=== PATIENT | female | born 1935 | race Caucasian/White ===

== ENCOUNTER 2019-07-18 13:30 | Emergency (ER) | payer MEDICARE, OTHER, SELFPAY ==
[2019-07-18 14:05] VITALS: BP 188/92; PULSE 86; RESP 18; TEMP 36.6; O2SAT 95; BMI 21.9
--- NOTE | 2019-07-18 17:14 | PC.NURSE ---
pt received AAOx3, ambulatory, urine obtained and sent for UAC and UDS. placed in green scrubs. given blankets. daughter in room. given water to drink. awaiting MD assessment.
[2019-07-18 17:16] LABS: RBC Urine None Seen (0-5/HPF)
[2019-07-18 17:18] LABS: Appearance Urine UA CLEAR; Bilirubin Urine UA NEGATIVE (NEGATIVE); Color Urine UA YELLOW; Glucose Urine UA TRACE g/dL (Negative); Ketones Urine UA NEGATIVE (NEGATIVE); Leukocyte Esterase Urine UA 1+ (NEGATIVE); Nitrite Urine UA NEGATIVE (Negative); Occult Blood Urine UA NEGATIVE (Negative); Protein Urine UA NEGATIVE (Negative); Specific Gravity Urine UA 1.015 (1.000-1.035); Urobilinogen Urine UA 0.2 E.U./dL (0.2); pH Urine UA 7.5 (4.5-8.0)
[2019-07-18 17:22] LABS: Urine Amphetamines Negative (Negative); Urine Barbiturates Negative (Negative); Urine Benzodiazepines Negative (Negative); Urine Cocaine Negative (Negative); Urine MDMA Negative (Negative); Urine Methadone Negative (Negative); Urine Methamphetamines Negative (Negative); Urine Morphine/Opi cutoff 2000 Negative (Negative); Urine Oxycodone Negative (Negative); Urine Phencyclidine Negative (Negative); Urine Tetrahydrocannabinol Positive (Negative); Urine Tricyclic Antidepressant Negative (Negative)
[2019-07-18 17:27] LABS: Amorphous Sediment Urine 1+; Bacteria Urine Occasional (0-1); Squamous Epithelial Cell Urine 1-5 /HPF (0-5/HPF); WBC Urine 1-5/HPF (0-5/HPF)
[2019-07-18 17:28] LABS: Culture Indicated Urine Specimen Cultured
[2019-07-18 17:37] LABS: Add Manual Diff / Slide Review NO; Basophils Absolute Auto 100 /uL (0-100); Basophils Percent Auto 0.9 % (0-2); Eosinophils Absolute Auto 100 /uL (0-450); Eosinophils Percent Auto 1.4 % (2-4); Hematocrit 38.2 % (36-46); Hemoglobin 12.6 g/dL (12.0-16.0); Lymphocytes Absolute Auto 800 /uL (1100-4500); Lymphocytes Percent Auto 12.6 % (25-40); Mean Corpuscular HGB Conc 33.1 % (30-36); Mean Corpuscular Hemoglobin 30.4 PG (26-34); Mean Corpuscular Volume 91.9 fL (80-100); Monocytes Absolute Auto 600 /uL (0-900); Monocytes Percent Auto 9.2 % (3-14); Neutrophils Absolute Auto 4600 /uL (1500-7000); Neutrophils Percent Auto 75.9 % (50-75); Platelet Count 294 X10^3/uL (150-400); Red Blood Cell Count 4.15 X10^6/uL (4.0-5.2); Red Cell Distribution Width 15.3 % (11.6-14.8); White Blood Cell Count 6.1 X10^3/uL (4.5-11.0)
[2019-07-18 17:44] LABS: Acetaminophen < 10 ug/mL (10-30); Alanine Aminotransferase 20 IU/L (9-52); Albumin 4.2 g/dL (3.5-5.0); Albumin Globulin Ratio 1.3 (1.0-2.8); Alkaline Phosphatase 61 U/L (38-126); Aspartate Aminotransferase 34 IU/L (14-36); BUN Creatinine Ratio 31.7 (6-22); Bilirubin Total 0.7 mg/dL (0.2-1.3); Blood Urea Nitrogen 19 mg/dL (7-17); Calcium 8.7 mg/dL (8.4-10.2); Carbon Dioxide 29 mmol/L (22-32); Chloride 94 mmol/L (98-107); Estimated Glomerular Filt Rate > 60.0 mL/min (>60); Ethanol (ETOH) < 10 mg/dL; Globulin 3.3 g/dL (1.7-4.1); Glucose 114 mg/dL (80-110); HEMOLYSIS < 15 (0-50); Potassium 3.6 mmol/L (3.4-5.1); Salicylate < 1.0 mg/dL (<20); Sodium 134 mmol/L (137-145); Total Protein 7.5 g/dL (6.3-8.2)
[2019-07-18 18:14] LABS: Free T4, Direct Thyroxine 0.93 ng/dL (0.78-2.19)
--- NOTE | 2019-07-18 18:27 | ED.PSYCH ---
HPI - Psych <Balaji Caceres, DO - Last Filed: 07/19/19 18:06> General Chief Complaint: Psychiatric Symptoms Stated Complaint: Emotional Time Seen by Provider: 07/18/19 18:06 Source: patient and family (Daughter) Mode of arrival: ambulatory Limitations: no limitations History of Present Illness HPI Narrative: 84-year-old female was brought in by family members for concerns of emotional issues to include depression and alcohol use. Patient is somewhat unwilling to provide specifics about the events that happened today. Does appear that she has had a longstanding history of depression. Has been on multiple antidepressants in the past. She states that initially she was treated by her primary doctor who then the patient states that her primary doctor stated that she was no longer going to provide any more anti depression medications. She currently is only seen by a therapist. Unknown when the last time she saw the therapist. She also states that she has seen another provider who started her on Pristiq but she stopped taking this medication because she states that it made her very drowsy. Patient does admit to drinking alcohol. Her last alcohol drink was yesterday. She states she is not depressed about the drinking but she drinks because of her depression. She denies any other toxic ingestions recently. She states that 1 time in the past ?many years ago ?she tried to hurt herself by taking some pills. Patient states that she is hopeless. She states she has no reason to live. She has made comments to her daughter about driving off a bridge. Patient is tearful during the interview. All of her depression issue seemed to be stemmed by her who also has Alzheimer's disease. Related Data Home Medications Medication Instructions Recorded Confirmed amlodipine [Norvasc] 2.5 mg PO QDAY #0 12/06/17 biotin 1,000 mcg PO Q DAY #0 12/06/17 cetirizine 10 mg PO QDAY #0 12/06/17 docusate sodium [Colace] 100 mg PO QDAY PRN #0 12/06/17 duloxetine 30 mg PO QDAY #0 12/06/17 levothyroxine [Synthroid] 0.125 mg PO QAM #0 12/06/17 losartan [Cozaar] 12.5 mg PO Q DAY #0 12/06/17 meloxicam 15 mg PO PRN PRN #0 12/06/17 montelukast [Singulair] 10 mg PO QDAY #0 12/06/17 omeprazole 20 mg PO HS #0 12/06/17 Allergies Allergy/AdvReac Type Severity Reaction Status Date / Time No Known Drug Allergies Allergy Verified 07/18/19 14:05 Review of Systems <Balaji Caceres DO - Last Filed: 07/19/19 18:06> Constitutional Constitutional: Denies fatigue, Denies fever(s) and Denies headache(s) Eyes Eyes: Denies change in vision ENT Ears, Nose, Mouth, and Throat: Denies vertigo, Denies dizziness and Denies headache(s) Cardiovascular Cardiovascular: Denies chest pain and Denies dyspnea Respiratory Respiratory: Denies dyspnea Gastrointestinal Gastrointestinal: Denies abdominal pain, Denies change in bowel habits and Denies diarrhea Genitourinary Genitourinary: Denies dysuria Musculoskeletal Musculoskeletal: Denies myalgias, Denies arthralgias and Denies tingling Integumentary/Breasts Skin/Breast: Denies lesions and Denies rash Neurologic Neurologic: Reports behavioral changes, Denies confusion, Denies vertigo, Denies dizziness, Denies headache(s) and Denies tingling Psychiatric Psychiatric: Denies anxiety, Reports behavioral changes, Denies confusion, Reports depression, Denies auditory hallucinations, Reports hopelessness, Reports irritability, Reports mood swings and Denies hallucinations Endocrine Endocrine: Denies fatigue Hematologic/Lymphatic Hematologic/Lymphatic: Denies easy bleeding and Denies easy bruising Allergic/Immunologic Allergic/Immunologic: Denies urticaria PFSH <Balaji Caceres DO - Last Filed: 07/19/19 18:06> Medical History (Updated 07/19/19 @ 14:28 by Trinity Robertson DO) Depression (Acute) Surgical History (Updated 07/18/19 @ 18:34 by Balaji Caceres DO) No pertinent past surgical history (Acute) Social History Smoking Status: Never smoker Social History Smoking Status: Never smoker Exam <Balaji Caceres DO - Last Filed: 07/19/19 18:06> Initial Vital Signs Initial Vital Signs: Vital Signs Temperature 97.8 F 07/18/19 14:05 Pulse Rate 86 07/18/19 14:05 Respiratory Rate 18 07/18/19 14:05 Blood Pressure 188/92 H 07/18/19 14:05 Pulse Oximetry 95 07/18/19 14:05 Const General: cooperative, comfortable, well developed, well groomed and No acute distress Orientation: alert, awake and oriented x3 HENMT Head: normal to inspection and normocephalic Resp Effort & Inspection: normal respiratory effort Auscultation: clear to auscultation bilaterally Cardio Rate: regular rate Rhythm: regular rhythm GI Inspection: non-distended Palpation: soft Skin Lesions: no lesions Rashes: no rashes Neuro General: alert, awake and oriented x3 Cognition: normal cognition Speech: speech normal Motor: muscle tone normal throughout Sensory Exam: no sensory deficits noted Extrem General: normal to inspection, capillary refill normal and No edema Psych Appearance: grossly normal and well kempt Speech and Movement: agitated and speech clear Mood: anxious mood, angry and irritable mood Affect: sad, anxious affect and No hostile Attitude: cooperative Thought Process: normal Thought Content: no homicidality and suicidality Judgment: fair <Trinity Robertson DO - Last Filed: 07/19/19 18:20> Initial Vital Signs Initial Vital Signs: Vital Signs Temperature 97.8 F 07/18/19 14:05 Pulse Rate 86 07/18/19 14:05 Respiratory Rate 18 07/18/19 14:05 Blood Pressure 188/92 H 07/18/19 14:05 Pulse Oximetry 95 07/18/19 14:05 Scores <Balaji Caceres DO - Last Filed: 07/19/19 18:06> GCS Ariella coma scale eye opening: Spontaneous [place] coma scale verbal response: Orientated Ariella coma scale motor response: Obey commands Ariella coma scale total score: 15 Course <Balaji Caceres DO - Last Filed: 07/19/19 18:06> Orders Ordered: Discontinued Medications Lorazepam (Ativan) 0.5 mg PO NOW ONE Stop: 07/18/19 18:28 Last Admin: 07/18/19 18:38 Dose: 0.5 mg Documented by: HARINDER Lorazepam (Ativan) 0.5 mg PO NOW ONE Stop: 07/18/19 21:19 Last Admin: 07/18/19 21:30 Dose: 0.5 mg Documented by: ALLIE Lorazepam (Ativan) 0.5 mg PO NOW ONE Stop: 07/19/19 01:14 Last Admin: 07/19/19 01:18 Dose: 0.5 mg Documented by: KEERTHI Lorazepam (Ativan) 0.5 mg PO NOW ONE Stop: 07/19/19 12:06 Last Admin: 07/19/19 12:22 Dose: 0.5 mg Documented by: KRISTY Lorazepam (Ativan) 0.5 mg PO NOW ONE Stop: 07/19/19 15:47 Last Admin: 07/19/19 16:00 Dose: 0.5 mg Documented by: ROMAN Vital Signs Vital signs: Vital Signs - 8 hr 07/19/19 11:00 07/19/19 12:09 07/19/19 14:35 Pulse Rate 83 91 H 97 H Respiratory Rate 14 18 18 Blood Pressure [Left Arm] 148/79 H 163/82 H 120/53 L Pulse Oximetry 96 99 97 07/19/19 15:57 Pulse Rate 88 Respiratory Rate 18 Blood Pressure [Left Arm] 115/55 L Pulse Oximetry 100 <Trinity Robertson, DO - Last Filed: 07/19/19 18:20> Orders Ordered: Discontinued Medications Lorazepam (Ativan) 0.5 mg PO NOW ONE Stop: 07/18/19 18:28 Last Admin: 07/18/19 18:38 Dose: 0.5 mg Documented by: HARINDER Lorazepam (Ativan) 0.5 mg PO NOW ONE Stop: 07/18/19 21:19 Last Admin: 07/18/19 21:30 Dose: 0.5 mg Documented by: HARRYFARL Lorazepam (Ativan) 0.5 mg PO NOW ONE Stop: 07/19/19 01:14 Last Admin: 07/19/19 01:18 Dose: 0.5 mg Documented by: KEERTHI Lorazepam (Ativan) 0.5 mg PO NOW ONE Stop: 07/19/19 12:06 Last Admin: 07/19/19 12:22 Dose: 0.5 mg Documented by: KRISTY Lorazepam (Ativan) 0.5 mg PO NOW ONE Stop: 07/19/19 15:47 Last Admin: 07/19/19 16:00 Dose: 0.5 mg Documented by: ROMAN Vital Signs Vital signs: Vital Signs - 8 hr 07/19/19 11:00 07/19/19 12:09 07/19/19 14:35 Pulse Rate 83 91 H 97 H Respiratory Rate 14 18 18 Blood Pressure [Left Arm] 148/79 H 163/82 H 120/53 L Pulse Oximetry 96 99 97 07/19/19 15:57 Pulse Rate 88 Respiratory Rate 18 Blood Pressure [Left Arm] 115/55 L Pulse Oximetry 100 [facility] - Psych <Balaji Caceres DO - Last Filed: 07/19/19 18:06> Lab Data Attestation: I reviewed the patient's lab results. Result diagrams: 07/18/19 17:25 07/18/19 17:25 Labs: Lab Results 07/18/19 07/18/19 07/18/19 Range/Units 17:02 17:02 17:25 WBC 6.1 (4.5-11.0) X10^3/uL RBC 4.15 (4.0-5.2) X10^6/uL Hgb 12.6 (12.0-16.0) g/dL Hct 38.2 (36-46) % MCV 91.9 (80-100) fL MCH 30.4 (26-34) PG MCHC 33.1 (30-36) % RDW 15.3 H (11.6-14.8) % Plt Count 294 (150-400) X10^3/uL Neut % (Auto) 75.9 H (50-75) % Lymph % (Auto) 12.6 L (25-40) % Bowie % (Auto) 9.2 (3-14) % Eos % (Auto) 1.4 L (2-4) % Baso % (Auto) 0.9 (0-2) % Neut # (Auto) 4600 (2067-3278) /uL Lymph # (Auto) 800 L (4392-3199) /uL Bowie # (Auto) 600 (0-900) /uL Eos # (Auto) 100 (0-450) /uL Baso # (Auto) 100 (0-100) /uL Sodium (137-145) mmol/L Potassium (3.4-5.1) mmol/L Chloride (98-107) mmol/L Carbon Dioxide (22-32) mmol/L BUN (7-17) mg/dL Creatinine (0.52-1.04) mg/dL Estimated GFR (>60) mL/min BUN/Creatinine Ratio (6-22) Glucose (80-110) mg/dL Calcium (8.4-10.2) mg/dL Total Bilirubin (0.2-1.3) mg/dL AST (14-36) IU/L ALT (9-52) IU/L Alkaline Phosphatase (38-126) U/L Total Protein (6.3-8.2) g/dL Albumin (3.5-5.0) g/dL Globulin (1.7-4.1) g/dL Albumin/Globulin Ratio (1.0-2.8) TSH (0.47-4.68) uIU/mL Free T4 (0.78-2.19) ng/dL Urine Color Yellow Urine Appearance Clear Urine pH 7.5 (4.5-8.0) Ur Specific Brickeys 1.015 (1.000-1.035) Urine Protein Negative (Negative) Urine Glucose (UA) Trace H (Negative) g/dL Urine Ketones Negative (NEGATIVE) Urine Occult Blood Negative (Negative) Urine Nitrate Negative (Negative) Urine Bilirubin Negative (NEGATIVE) Urine Urobilinogen 0.2 (0.2) E.U./dL Ur Leukocyte Esterase 1+ H (NEGATIVE) Urine RBC None seen (0-5/HPF) Urine WBC 1-5/hpf (0-5/HPF) Ur Squamous Epith Cells 1-5 /hpf (0-5/HPF) Amorphous Sediment 1+ Urine Bacteria Occasional (0-1) (None) Ur Culture Indicated? Specimen cultured Salicylates (<20) mg/dL Urine Opiates Screen Negative (Negative) Ur Oxycodone Screen Negative (Negative) Urine Methadone Screen Negative (Negative) Acetaminophen (10-30) ug/mL Ur Barbiturates Screen Negative (Negative) U Tricyclic Antidepress Negative (Negative) Ur Phencyclidine Scrn Negative (Negative) Ur Amphetamines Screen Negative (Negative) U Methamphetamines Scrn Negative (Negative) Ur MDMA Scrn (Ecstasy) Negative (Negative) U Benzodiazepines Scrn Negative (Negative) Urine Cocaine Screen Negative (Negative) U Marijuana (THC) Screen Positive H (Negative) Ethyl Alcohol ( - 10) mg/dL 07/18/19 07/18/19 Range/Units 17:25 17:25 WBC (4.5-11.0) X10^3/uL RBC (4.0-5.2) X10^6/uL Hgb (12.0-16.0) g/dL Hct (36-46) % MCV (80-100) fL MCH (26-34) PG MCHC (30-36) % RDW (11.6-14.8) % Plt Count (150-400) X10^3/uL Neut % (Auto) (50-75) % Lymph % (Auto) (25-40) % Bowie % (Auto) (3-14) % Eos % (Auto) (2-4) % Baso % (Auto) (0-2) % Neut # (Auto) (5250-3930) /uL Lymph # (Auto) (0580-5117) /uL Bowie # (Auto) (0-900) /uL Eos # (Auto) (0-450) /uL Baso # (Auto) (0-100) /uL Sodium 134 L (137-145) mmol/L Potassium 3.6 (3.4-5.1) mmol/L Chloride 94 L (98-107) mmol/L Carbon Dioxide 29 (22-32) mmol/L BUN 19 H (7-17) mg/dL Creatinine 0.60 (0.52-1.04) mg/dL Estimated GFR > 60.0 (>60) mL/min BUN/Creatinine Ratio 31.7 H (6-22) Glucose 114 H (80-110) mg/dL Calcium 8.7 (8.4-10.2) mg/dL Total Bilirubin 0.7 (0.2-1.3) mg/dL AST 34 (14-36) IU/L ALT 20 (9-52) IU/L Alkaline Phosphatase 61 (38-126) U/L Total Protein 7.5 (6.3-8.2) g/dL Albumin 4.2 (3.5-5.0) g/dL Globulin 3.3 (1.7-4.1) g/dL Albumin/Globulin Ratio 1.3 (1.0-2.8) TSH 3.53 (0.47-4.68) uIU/mL Free T4 0.93 (0.78-2.19) ng/dL Urine Color Urine Appearance Urine pH (4.5-8.0) Ur Specific Brickeys (1.000-1.035) Urine Protein (Negative) Urine Glucose (UA) (Negative) g/dL Urine Ketones (NEGATIVE) Urine Occult Blood (Negative) Urine Nitrate (Negative) Urine Bilirubin (NEGATIVE) Urine Urobilinogen (0.2) E.U./dL Ur Leukocyte Esterase (NEGATIVE) Urine RBC (0-5/HPF) Urine WBC (0-5/HPF) Ur Squamous Epith Cells (0-5/HPF) Amorphous Sediment Urine Bacteria (None) Ur Culture Indicated? Salicylates < 1.0 (<20) mg/dL Urine Opiates Screen (Negative) Ur Oxycodone Screen (Negative) Urine Methadone Screen (Negative) Acetaminophen < 10 L (10-30) ug/mL Ur Barbiturates Screen (Negative) U Tricyclic Antidepress (Negative) Ur Phencyclidine Scrn (Negative) Ur Amphetamines Screen (Negative) U Methamphetamines Scrn (Negative) Ur MDMA Scrn (Ecstasy) (Negative) U Benzodiazepines Scrn (Negative) Urine Cocaine Screen (Negative) U Marijuana (THC) Screen (Negative) Ethyl Alcohol < 10 ( - 10) mg/dL Imaging Data CT scan - head: Radiologist's impression: [place] [address] CT Scan Report Signed Patient: Holley Saucedo EMR#: [id number] : 1935Acct:[id number] Age/Sex: 84 / FDate of Service: 07/18/19 Loc: ED Accession Number: [id number] Procedure: CT head/brain wo con Ordering Provider: Balaji Caceres D.O. PROCEDURE: CT HEAD/BRAIN WO CON INDICATIONS: new onset depression TECHNIQUE: Noncontrast 4.5 mm thick angled axial sections acquired from the foramen magnum to the vertex, with coronal and sagittal reformats. For radiation dose reduction, the following was used: automated exposure control, adjustment of mA and/or kV according to patient size. COMPARISON: None. FINDINGS: Image quality: Excellent. CSF spaces: Basal cisterns are patent. No extra-axial fluid collections. The ventricles are symmetric in size and shape. Brain: No intracranial bleeds or masses. There is cerebral volume loss for age, with resultant ventricular and sulcal prominence. There are periventricular and deep white matter chronic small vessel ischemic changes. There is intracranial internal carotid artery atherosclerosis. Skull and face: Calvarium and visualized facial bones appear intact, without suspicious lesions. Sinuses: Moderate mucosal thickening in left maxillary sinus is seen. Rest of the visualized sinuses and mastoids are clear. IMPRESSION: 1. No CT evidence of acute intracranial pathology. 2. Age-appropriate atrophy and moderate periventricular white matter microangiopathic changes. 3. Chronic left maxillary sinusitis. Dictated by: Brooks Hensley M.D. on 07/18/2019 at 19:11 Approved by: Brooks Hensley M.D. on 07/18/2019 at 19:12 ECG Data Attestation: I personally reviewed and interpreted this ECG as follows: Prior ECG tracings: not available for review Interpretation: Sinus rhythm Ventricular rate is 77 Left bundle-branch block QRS 1 to a milliseconds Normal QTC MDM Narrative Medical decision making narrative: Patient is medically cleared. No signs of toxic ingestion. EKG shows left bundle branch block otherwise unremarkable. Head CT is unremarkable. Patient has history of depression. Also has a significant alcohol use although not intoxicated today. Has a hopeless feeling. Has express thoughts of suicide to include driving her car off the bridge. Patient has been voluntary. Patient has been calm over night. She remains medically cleared. Multiple times to place patient in facility a has been unsuccessful. Social work consult has been placed. Care turned over to day provider change of shift to further disposition. <Trinity Robertson, DO - Last Filed: 07/19/19 18:20> Lab Data Attestation: I reviewed the patient's lab results. Labs: Lab Results 07/18/19 07/18/19 07/18/19 Range/Units 17:02 17:02 17:25 WBC 6.1 (4.5-11.0) X10^3/uL RBC 4.15 (4.0-5.2) X10^6/uL Hgb 12.6 (12.0-16.0) g/dL Hct 38.2 (36-46) % MCV 91.9 (80-100) fL MCH 30.4 (26-34) PG MCHC 33.1 (30-36) % RDW 15.3 H (11.6-14.8) % Plt Count 294 (150-400) X10^3/uL Neut % (Auto) 75.9 H (50-75) % Lymph % (Auto) 12.6 L (25-40) % Bowie % (Auto) 9.2 (3-14) % Eos % (Auto) 1.4 L (2-4) % Baso % (Auto) 0.9 (0-2) % Neut # (Auto) 4600 (4092-4083) /uL Lymph # (Auto) 800 L (3882-9796) /uL Bowie # (Auto) 600 (0-900) /uL Eos # (Auto) 100 (0-450) /uL Baso # (Auto) 100 (0-100) /uL Sodium (137-145) mmol/L Potassium (3.4-5.1) mmol/L Chloride (98-107) mmol/L Carbon Dioxide (22-32) mmol/L BUN (7-17) mg/dL Creatinine (0.52-1.04) mg/dL Estimated GFR (>60) mL/min BUN/Creatinine Ratio (6-22) Glucose (80-110) mg/dL Calcium (8.4-10.2) mg/dL Total Bilirubin (0.2-1.3) mg/dL AST (14-36) IU/L ALT (9-52) IU/L Alkaline Phosphatase (38-126) U/L Total Protein (6.3-8.2) g/dL Albumin (3.5-5.0) g/dL Globulin (1.7-4.1) g/dL Albumin/Globulin Ratio (1.0-2.8) TSH (0.47-4.68) uIU/mL Free T4 (0.78-2.19) ng/dL Urine Color Yellow Urine Appearance Clear Urine pH 7.5 (4.5-8.0) Ur Specific Brickeys 1.015 (1.000-1.035) Urine Protein Negative (Negative) Urine Glucose (UA) Trace H (Negative) g/dL Urine Ketones Negative (NEGATIVE) Urine Occult Blood Negative (Negative) Urine Nitrate Negative (Negative) Urine Bilirubin Negative (NEGATIVE) Urine Urobilinogen 0.2 (0.2) E.U./dL Ur Leukocyte Esterase 1+ H (NEGATIVE) Urine RBC None seen (0-5/HPF) Urine WBC 1-5/hpf (0-5/HPF) Ur Squamous Epith Cells 1-5 /hpf (0-5/HPF) Amorphous Sediment 1+ Urine Bacteria Occasional (0-1) (None) Ur Culture Indicated? Specimen cultured Salicylates (<20) mg/dL Urine Opiates Screen Negative (Negative) Ur Oxycodone Screen Negative (Negative) Urine Methadone Screen Negative (Negative) Acetaminophen (10-30) ug/mL Ur Barbiturates Screen Negative (Negative) U Tricyclic Antidepress Negative (Negative) Ur Phencyclidine Scrn Negative (Negative) Ur Amphetamines Screen Negative (Negative) U Methamphetamines Scrn Negative (Negative) Ur MDMA Scrn (Ecstasy) Negative (Negative) U Benzodiazepines Scrn Negative (Negative) Urine Cocaine Screen Negative (Negative) U Marijuana (THC) Screen Positive H (Negative) Ethyl Alcohol ( - 10) mg/dL 07/18/19 07/18/19 Range/Units 17:25 17:25 WBC (4.5-11.0) X10^3/uL RBC (4.0-5.2) X10^6/uL Hgb (12.0-16.0) g/dL Hct (36-46) % MCV (80-100) fL MCH (26-34) PG MCHC (30-36) % RDW (11.6-14.8) % Plt Count (150-400) X10^3/uL Neut % (Auto) (50-75) % Lymph % (Auto) (25-40) % Bowie % (Auto) (3-14) % Eos % (Auto) (2-4) % Baso % (Auto) (0-2) % Neut # (Auto) (9997-0850) /uL Lymph # (Auto) (8262-0124) /uL Bowie # (Auto) (0-900) /uL Eos # (Auto) (0-450) /uL Baso # (Auto) (0-100) /uL Sodium 134 L (137-145) mmol/L Potassium 3.6 (3.4-5.1) mmol/L Chloride 94 L (98-107) mmol/L Carbon Dioxide 29 (22-32) mmol/L BUN 19 H (7-17) mg/dL Creatinine 0.60 (0.52-1.04) mg/dL Estimated GFR > 60.0 (>60) mL/min BUN/Creatinine Ratio 31.7 H (6-22) Glucose 114 H (80-110) mg/dL Calcium 8.7 (8.4-10.2) mg/dL Total Bilirubin 0.7 (0.2-1.3) mg/dL AST 34 (14-36) IU/L ALT 20 (9-52) IU/L Alkaline Phosphatase 61 (38-126) U/L Total Protein 7.5 (6.3-8.2) g/dL Albumin 4.2 (3.5-5.0) g/dL Globulin 3.3 (1.7-4.1) g/dL Albumin/Globulin Ratio 1.3 (1.0-2.8) TSH 3.53 (0.47-4.68) uIU/mL Free T4 0.93 (0.78-2.19) ng/dL Urine Color Urine Appearance Urine pH (4.5-8.0) Ur Specific Brickeys (1.000-1.035) Urine Protein (Negative) Urine Glucose (UA) (Negative) g/dL Urine Ketones (NEGATIVE) Urine Occult Blood (Negative) Urine Nitrate (Negative) Urine Bilirubin (NEGATIVE) Urine Urobilinogen (0.2) E.U./dL Ur Leukocyte Esterase (NEGATIVE) Urine RBC (0-5/HPF) Urine WBC (0-5/HPF) Ur Squamous Epith Cells (0-5/HPF) Amorphous Sediment Urine Bacteria (None) Ur Culture Indicated? Salicylates < 1.0 (<20) mg/dL Urine Opiates Screen (Negative) Ur Oxycodone Screen (Negative) Urine Methadone Screen (Negative) Acetaminophen < 10 L (10-30) ug/mL Ur Barbiturates Screen (Negative) U Tricyclic Antidepress (Negative) Ur Phencyclidine Scrn (Negative) Ur Amphetamines Screen (Negative) U Methamphetamines Scrn (Negative) Ur MDMA Scrn (Ecstasy) (Negative) U Benzodiazepines Scrn (Negative) Urine Cocaine Screen (Negative) U Marijuana (THC) Screen (Negative) Ethyl Alcohol < 10 ( - 10) mg/dL MDM Narrative Medical decision making narrative: Patient signed out to myself. She has been ambulatory in the department. She had some increased anxiety and worsening symptoms earlier this morning and given dose of ativan po which was given overnight and helpful to patient. Patient found second dose helpful. Patient re-evaluated by social work. Accepted at [facility] by Dr. Wills, plan for transport 1600 to arrive at 1700. Patient continues to be voluntary and endorses suicidal thoughts and depression. Discharge Plan Departure Patient Disposition: [facility]fer [facility] Clinical Impression: Depression with suicidal ideation Discharge Date/Time: 07/19/19 16:43 Referrals: Makayla Lazcano PA-C [Primary Care Provider] -
[2019-07-18 18:28] LABS: Thyroid Stimulating Hormone 3.53 uIU/mL (0.47-4.68)
[2019-07-18 18:30] VITALS: BP 144/66; PULSE 98; RESP 16; O2SAT 96
[2019-07-18] MEDS: LORazepam 0.5 MG TABLET PO ×2 (18:38→21:30)
--- NOTE | 2019-07-18 20:36 | ONC.MSW ---
ED Social Work Crisis Assessment Pt presented to the ED along with family members after having been found in her bed, refusing to get up and expressing wanting to . She has been decompensating over recent weeks after her needed to be placed with her dtr due to progressive Alzheimer's disease, and he/pt's inability to care for him safely in the home. Pt has been increasing her use of ETOH, is found to be nearly unconsolable in the ED, expressing wanting for ED to give her a pill so that I won't wake up. Family state that pt has had increasing depression, has been trialed on several antidepressants without lasting benefit. She recently took herself off of the most recent antidepressant prescribed by her PCP, stating it made her feel too tired. She is cooperative and asking for assistance in stabilization. Family are present and very supportive of this plan. Discharge Planning/Care Management ED Crisis Response Assessment Start: 07/18/19 19:54 Freq: Status: Active Protocol: Document 07/18/19 19:55 DPL (Rec: 07/18/19 20:07 DPL [id number]) ED Crisis Response Assessment GRID OPERATOR Assessment Type Mental Health,Substance Abuse Reason for GRID OPERATOR Referral Assess for suicide risk and possible inpt mental health placement. Referred by ED provider Presenting Problem Pt presents to the ED expressing feeling suicidal, does not feel safe being alone as he feels he is high risk for completing suicide. Precipitating event was a break-up with his girlfriend 2 -days ago. He states that he can't stop thinking about wanting to , feels that he is completely overwhelmed with sadness and grief. He admits to using marijuana, no ETOH indicated on tox. screen. His brother is here and shares that pt has had multiple suicide attempts in the past, and is fearful for his brother 's life. Mental health diagnosis Per pt self report, long history of depression. Pt also acknowledges the regular use of anabolic steroids as part of his weight lifting practice . He not on any antidepressants at this time. VOA/CMS check Yes Suicidal thoughts Yes Past Suicidal thoughts Yes Current Suicidal thoughts Yes Prior Suicide attempts Yes: twice with pills, once tried to hang himself but the belt broke Number of suicide attempts 4 Access to guns and weapons No Thoughts of harm to others No Past thoughts of harm to others No Current thoughts of harming others No Current plan to harm others No Current Risk factors Recent trauma exposure, Substance abuse Risk factor comments Recent relationship break-up, anabolic steroid use, substance abuse, multiple past suicide attempts. Relevant Medical History N/A Crisis Plan Patient does not feel safe alone. He is not wanting to go to a crisis center for stabilization, is not wanting placement, however is not able to feel that he will be safe unless he is here in the ED. Additional Comment DCR has been dispatched and assessment will follow. Document 07/18/19 20:21 DPL (Rec: 07/18/19 20:32 DPL [id number]) ED Crisis Response Assessment GRID OPERATOR Assessment Type Risk of Suicide Reason for GRID OPERATOR Referral Suicidal ideation, assess for risk and potential inpt stabilization placement. Referred by ED Provider Presenting Problem Family state that pt has been increasingly more depressed, not functioning well and increasing use of ETOH after her needed to move in w/her dtr due to advanced Alzheimer's disease. She was not wanting to get out of bed, expressing wanting to , extremely tearful and unconsolable, and presented to the ED asking for a pill that will make me go to sleep and not wake up. She expresses severe hopelessness and is demonstrating failure to thrive. Mental health diagnosis History of depression. Has been trialed on multiple different antidepressants without lasting benefit. She was recently seen by her PCP and was placed on Prestique ( antidepressant), however pt stopped it herself, expressing that it made her too tired. Pt is drinking ETOH daily in order to cope, and is losing track of when she did or did not drink. VOA/CMS check No Suicidal thoughts Yes Past Suicidal thoughts No Current Suicidal thoughts Yes Prior Suicide attempts No Number of suicide attempts 0 Current plan for self harm Yes Access to guns and weapons No Thoughts of harm to others No Past thoughts of harm to others No Current thoughts of harming others No Prior attempts to harm others No Current plan to harm others No Current Risk factors Recent trauma exposure Risk factor comments Recent need to for family to place pt's spouse in the care of her dtr due to spouse's progressing Alzheimer's and pt 's inability to care for him in the home environment. Crisis Plan Attempting inpt mental health stabilization. ED Psychiatric Symptoms Assessment Start: 07/18/19 14:13 Freq: Status: Active Protocol: Document 07/18/19 18:00 RLS (Rec: 07/18/19 18:26 RLS [id number]) Psychiatric Symptoms Assessment Symptoms/Complaint Feels Depressed Duration Getting Worse History Of Same Yes Context Recent Alcohol Abuse Improves With Nothing Associated Psychiatric Symptoms Depression,Suicidal Ideation Level of Consciousness Awake Patient Behavior/Mood Anxious,Impulsive Ability to Follow Directions Fair Patient Cognition Impaired No Affect Description Anxious,Depressed Patient Appearance Disheveled Hallucination Type None Delusion Description Not Present Thought Process: Looseness of association Depressive Symptoms Crying Spells,Difficulty Concentrating,Difficulty Sleeping,Difficulty Making Decisions,Feelings of Guilt, Feelings of Worthlessness, Hopelessness,Increased Anxiety ,Insomnia,Isolating Oneself From Friends and Family,Loss of Energy,Loss of Interest in Activities,Low Self Esteem, Unhappiness Major Depressive Episode Yes Feelings of Hopelessness Yes Suicidal Ideation Vague Suicide Plan No Plan Homicidal Ideation None Nausea/Vomiting None Document 07/18/19 19:54 MM (Rec: 07/18/19 19:58 MM [id number]) Psychiatric Symptoms Assessment Symptoms/Complaint Feels Depressed Duration Getting Worse Context Recent Alcohol Abuse Worsens With Alcohol Associated Psychiatric Symptoms Depression,Suicidal Ideation Level of Consciousness Awake Patient Behavior/Mood Anxious Affect Description Anxious,Depressed Patient Appearance Disheveled Hallucination Type None Delusion Description Not Present Thought Process: Looseness of association Depressive Symptoms Crying Spells,Difficulty Concentrating,Difficulty Sleeping,Difficulty Making Decisions,Feelings of Guilt, Feelings of Worthlessness, Hopelessness,Increased Anxiety ,Increased Fatigue,Insomnia, Isolating Oneself From Friends and Family,Loss of Energy, Loss of Interest in Activities ,Low Self Esteem,Unhappiness Major Depressive Episode Yes Feelings of Hopelessness Yes Suicidal Ideation Vague Suicide Plan No Plan Homicidal Ideation None Nausea/Vomiting None
--- NOTE | 2019-07-18 21:32 | PC.NURSE ---
Pt stating starting to feel anxious again, requesting more medication. Dr love. Daughter at bedside.
[2019-07-18 22:00] VITALS: BP 144/67; PULSE 86; RESP 15; O2SAT 100
[2019-07-19] VITALS (8 sets, daily range): BP systolic 115–182; BP diastolic 53–91; PULSE 78–97; RESP 14–18; O2SAT 94–100
--- NOTE | 2019-07-19 00:02 | PC.NURSE ---
Pt currently sleeping, dtr in the room. Pt was medicated at 1826 and 2117 with Ativan 0.5mg. Pt appears to the resting comfortable at this time.
--- NOTE | 2019-07-19 00:51 | PC.NURSE ---
Pt awake and up to the bathroom with some stress incontinence, she states that she feels better but is still a little scared and the ativan helped. She would like more when and if possible.
[2019-07-19] MEDS: LORazepam 0.5 MG TABLET PO ×3 (01:18→16:00)
--- NOTE | 2019-07-19 01:26 | PC.NURSE ---
Pt and Pt dtr reporting increase in anxiety, requested ativan. 3rd dose of 0.5mg Ativan given at 0118. Pt states she will attempt pt get some sleep.
--- NOTE | 2019-07-19 08:19 | PC.NURSE ---
Patients daughter called. Requests update. Given. States cannot be here as has an Alzheimers person at her home she cares for. Will be here after comes home from work
--- NOTE | 2019-07-19 08:21 | PC.NURSE ---
Assisted patient to bathroom. Offered meal which she began to eat. She became emotional and spoke about her daughter and began crying and said she was scared. Continued to talk about her daughter and she felt better. Asked for more Corwinvan.
--- NOTE | 2019-07-19 08:23 | PC.NURSE ---
Offered coffee. She is sitting up in bed eating breakfast.
--- NOTE | 2019-07-19 11:16 | PC.NURSE ---
Obtained patient care. patient sleeping. Pillow covering patients face upon entering the room. Offered a wash cloth to cover eyes. Lights dimmed. patient resting comfortably denies any needs at this time. Calm and interactive.
--- NOTE | 2019-07-19 12:10 | PC.NURSE ---
Patient neon electrician henry spoke with DERRICKMAN HELPER and states she is feeling more anxious. Discussed with provider. Patient set up on phone with Henna at [facility] to discuss potential admission.
--- NOTE | 2019-07-19 12:10 | PC.NURSE ---
Patient was walking around in room picking up trash. I assisted her back over to the bed and showed her a lunch tray we brought in. She was willing to talk to [facility] over the phone and is doing so in her room. She is cooperating and calm
--- NOTE | 2019-07-19 12:11 | CM.SWNOTE ---
Addendum entered by Ramya Grigsby, TED 07/19/19 14:37: ADD: SW met bedside with pt and her adult Dtr Joann and discussed the process of Voluntary MH Inpt tx and the benefits for Geropsych. Pt was somewhat anxious about the unknown but pt's Dtr was encouraging for her to get the support and help needed to have a safe and better life situation. Pt states she is agreeable to Inpt MH tx and agreeable to [facility]. SW provided Dtr with the contact and location of [facility] and Dtr will go get pt's comfortable clothes for transport via BLS today. SW called Henna at [facility] and updated on pt's voluntary interest and she will confirm with their physician that they can accept. Per Henna Arora from [facility] called back with confirmation they can accept. Per GERALD Santana, BLS transport scheduled for 1600. BF Original Note: Per MD, pt remains medically stable and calm and cooperative but still could benefit from Inpt MH tx for stabilization and med management. Pt currently sleeping soundly with pillow over her head and SW did not want to immediately disturb her while continuing to look for voluntary placement for MH. SW called pt's Dtr Joann ([phone]) who confirms that she is quite concerned for the pt and would like pt to be placed for stabilization but that Dtr plans to have pt come stay with her when ready for d/c back to the community. Dtr Joann confirms that terminal computer operator plan had been for pt and spouse (with dementia) to move into their house once pt's grandson moved to [place] (which he just did this weekend). Dtr preference is to have pt stable before moving into their home as pt's current crying and instability has agitated her spouse with dementia. SW discussed possible barrier to finding a [facility] bed and Dtr acknowledges understanding and states that if no beds can be found that she would be willing to still have pt d/c to her home but requesting support with establishing pt with a Psychiatrist to prescribe and med manage for stability. Pt has struggled with finding the appropriate medication and dosing to help maintain her ADL's independently. Dtr states that pt is established with Kayla Gibson mental health therapist in [place] but is unsure if pt sees her one time weekly or every other week. Dtr plans to be bedside in ED with pt later today when her gets home from work and can stay with pt's demented spouse. [facility]ON called [facility] to follow up on faxed referral yesterday and [facility] no [facility]. SW called [facility] and they do not anticipate an opening until Saturday 07/21 but SW faxed clinicals to review in case an opening arises sooner to fax #[phone]. SW called [facility] and bag shop worker states they are currently full. SW called [facility] and they have an opening and willing to review and request clincals faxed to [phone] and SW sent packet after doing brief phone screen with intake. Per PORTER Galeas, pt currently on the phone with [facility] intake completing phone screen and they gathered some additional medical info from Gudelia regarding pt's ETOH and feel they may have an opening in their Voluntary MH unit now. Plan: ALYSON following closely to determine if [facility] can accept and [facility] Roberts to review for placement if [facility] cannot accept. TED Shaver
--- NOTE | 2019-07-19 12:29 | PC.NURSE ---
Patient assisted with a call to her daughter to discuss going to [facility].
--- NOTE | 2019-07-21 09:39 | CM.SWNOTE ---
ED Social Work Crisis Assessment Pt presented to the ED along with family members after having been found in her bed, refusing to get up and expressing wanting to . She has been decompensating over recent weeks after her needed to be placed with her dtr due to progressive Alzheimer's disease, and he/pt's inability to care for him safely in the home. Pt has been increasing her use of ETOH, is found to be nearly unconsolable in the ED, expressing wanting for ED to give her a pill so that I won't wake up. Family state that pt has had increasing depression, has been trialed on several antidepressants without lasting benefit. She recently took herself off of the most recent antidepressant prescribed by her PCP, stating it made her feel too tired. She is cooperative and asking for assistance in stabilization. Family are present and very supportive of this plan. ED Psychiatric Symptoms Assessment Start: 07/18/19 14:13 Freq: Status: Active Protocol: Document 07/18/19 18:00 RLS (Rec: 07/18/19 18:26 RLS [id number]) Psychiatric Symptoms Assessment Symptoms/Complaint Feels Depressed Duration Getting Worse History Of Same Yes Context Recent Alcohol Abuse Improves With Nothing Associated Psychiatric Symptoms Depression,Suicidal Ideation Level of Consciousness Awake Patient Behavior/Mood Anxious,Impulsive Ability to Follow Directions Fair Patient Cognition Impaired No Affect Description Anxious,Depressed Patient Appearance Disheveled Hallucination Type None Delusion Description Not Present Thought Process: Looseness of association Depressive Symptoms Crying Spells,Difficulty Concentrating,Difficulty Sleeping,Difficulty Making Decisions,Feelings of Guilt, Feelings of Worthlessness, Hopelessness,Increased Anxiety ,Insomnia,Isolating Oneself From Friends and Family,Loss of Energy,Loss of Interest in Activities,Low Self Esteem, Unhappiness Major Depressive Episode Yes Feelings of Hopelessness Yes Suicidal Ideation Vague Suicide Plan No Plan Homicidal Ideation None Nausea/Vomiting None Document 07/18/19 19:54 MM (Rec: 07/18/19 19:58 MM [id number]) Psychiatric Symptoms Assessment Symptoms/Complaint Feels Depressed Duration Getting Worse Context Recent Alcohol Abuse Worsens With Alcohol Associated Psychiatric Symptoms Depression,Suicidal Ideation Level of Consciousness Awake Patient Behavior/Mood Anxious Affect Description Anxious,Depressed Patient Appearance Disheveled Hallucination Type None Delusion Description Not Present Thought Process: Looseness of association Depressive Symptoms Crying Spells,Difficulty Concentrating,Difficulty Sleeping,Difficulty Making Decisions,Feelings of Guilt, Feelings of Worthlessness, Hopelessness,Increased Anxiety ,Increased Fatigue,Insomnia, Isolating Oneself From Friends and Family,Loss of Energy, Loss of Interest in Activities ,Low Self Esteem,Unhappiness Major Depressive Episode Yes Feelings of Hopelessness Yes Suicidal Ideation Vague Suicide Plan No Plan Homicidal Ideation None Nausea/Vomiting None Initialized on 07/18/19 20:36 - END OF NOTE
== END 2019-07-19 16:43 ==
PROVIDERS: Emergency Medicine; Emergency Provider Emergency Medicine; Family Provider Family Medicine; PCP Physician Assistant Medical
DX: R45.851 Suicidal ideations (principal); F32.9 Major depressive disorder, single episode, unspecified
CPT/HCPCS: 36415; 70450; 80053; 80305; 80320; 80329; 81001; 84439; 84443; 85025; 87086; 93005; 99285; G0480

== ENCOUNTER → 2019-09-17 09:30 | Outpatient (CLI) | payer MEDICARE, OTHER, SELFPAY ==
--- NOTE | 2019-09-17 09:34 | DI.RAD.S_ITS ---
PROCEDURE: XR CERVICAL SPINE 4V OR 5V INDICATIONS: Cervical spondylosis TECHNIQUE: 5 views of the cervical spine acquired. COMPARISON: None. FINDINGS: Bones: No fractures or dislocations to the T1 level. Extensive cervical spondylosis. Remote interbody fusion versus congenital fusion at C5-C6. Minimal degenerative anterolisthesis of C4 on C5. Mild degenerative anterolisthesis of C3 on C4. Extensive facet arthropathy. Severe bilateral foraminal narrowing at C4-C5 and multilevel right bony foraminal narrowing. Soft tissues: No prevertebral soft tissue swelling. IMPRESSION: Extensive cervical spondylytic change with multilevel foraminal narrowing and marked multilevel facet arthropathy. Dictated by: Lai Muñiz M.D. on 09/17/2019 at 10:13 Approved by: Lai Muñiz M.D. on 09/17/2019 at 10:16
== END ==
PROVIDERS: Family Provider Family Medicine; PCP Nurse Practitioner; Visit Provider Physical Medicine & Rehabilitation
DX: M47.812 Spondylosis without myelopathy or radiculopathy, cervical region (principal); M48.02 Spinal stenosis, cervical region; F43.21 Adjustment disorder with depressed mood
CPT/HCPCS: 72050; 99214

== ENCOUNTER → 2019-10-01 09:11 | Outpatient (CLI) | payer MEDICARE, OTHER, SELFPAY ==
--- NOTE | 2019-10-01 | DI.ECHO.S_ITS ---
[facility]---------+ [facility] +---------+ : : [address] : : : : [id number] : : : : Phone: [phone]+ Echocardiogram Report + + :Name: ESPINOZA MOISE Study Date: 10/01/2019 Height: 63 in : :[facility] Weight: 115 lb : : Gender: Female BSA: 1.5 m2 : :: 1935 Age: 84 yrs BP: 122/74 mmHg: :Reason For Study: LBBB : : Performed By: [facility] Staff : :Referring: [email or web address] : + + Interpretation Summary 1) Normal left ventricular thickness and size with mildly reduced systolic function (EF 45-50%). 2) Normal right ventricular size and function. 3) Septal motion is consistent with conduction abnormality. 4) There is mild to moderate aortic regurgitation. 5) No prior Echo available for comparison. Procedure: A two-dimensional transthoracic echocardiogram with color flow and Doppler was performed. The study quality was technically adequate. There is no prior echocardiogram noted for this patient. The patient had a bundle branch block rhythm during the exam. Left Ventricle: The left ventricle is normal in size. There is normal left ventricular wall thickness. Left ventricular systolic function is mildly reduced. The ejection fraction is estimated to be 45-50%. Septal motion is consistent with conduction abnormality. Right Ventricle: The right ventricle is normal in size and function. Atria: The left atrium is mildly dilated. Right atrial size is normal. The interatrial septum is intact with no evidence for an atrial septal defect. Mitral Valve: The mitral valve leaflets appear mildly thickened, but open well. Nodular calcification on the anterior leaflet tip. There is trace mitral regurgitation. Aortic Valve: There is mild aortic valve sclerosis. The aortic valve is trileaflet. The aortic valve opens well. There is no aortic valve stenosis. There is mild to moderate aortic regurgitation. Tricuspid Valve: The tricuspid valve is normal in structure and function. There is mild tricuspid regurgitation. The right ventricular systolic pressure is estimated to be at least 29 mmHg based on an estimated right atrial pressure of 3 mm Hg. Pulmonic Valve: The pulmonic valve is normal in structure and function. There is trace pulmonic regurgitation. Great Vessels: The aortic root is normal size. The dimensions of the ascending aorta are normal. The pulmonary artery is normal size. The IVC is of normal diameter and collapses greater than 50% with a sniff. This suggests a low right atrial pressure of 3 mm Hg. Pericardium/ Pleura There is no pericardial effusion. There is no pleural effusion. MMode/2D Measurements & Calculations LVIDd: 2.9 cm LVOT diam: 2.1 cm LVIDs: 2.4 cm Ao root diam: 3.4 cm FS: 18.2 % EPSS: 0.89 cm IVSd: 1.0 cm LVPWd: 0.99 cm LV ruiz. diameter/BSA (cm/m^2): 1.9 LV sys. diameter/BSA (cm/m^2): 1.5 LA A2 area: 19.4 cm2 RA long axis: 4.9 cm LA A4 area: 14.8 cm2 RA area: 14.3 cm2 LA length (vol): 4.7 cm RA vol: 35.9 ml LA vol: 52.4 ml RA : 23.5 ml/m2 LA vol index: 34.3 ml/m2 IVC diam: 1.8 cm TAPSE: 2.1 cm Doppler Measurements & Calculations Ao V2 max: 105.5 cm/sec LVOT Max Owen: 83.8 cm/sec Ao V2 mean: 71.1 cm/sec LV V1 max P.8 mmHg Ao max P.5 mmHg LV V1 VTI: 18.2 cm Ao mean P.4 mmHg PHILIP(I,D): 3.1 cm2 Ao V2 VTI: 20.1 cm PHILIP(V,D): 2.8 cm2 sev ratio: 0.91 PHILIP indexed to BSA (cm^2/m^2): 2.1 AI P1/2t: 402.9 msec AI dec slope: 318.7 cm/sec2 MV E max owen: 70.6 cm/sec TR max owen: 227.8 cm/sec MV A max owen: 117.1 cm/sec TR max P.0 mmHg MV E/A: 0.60 PA V2 max: 59.2 cm/sec Med Peak E' Owen: 5.0 cm/sec PA V2 mean: 40.5 cm/sec E/E' med: 14.3 PA mean P.77 mmHg Lat Peak E' Owen: 5.3 cm/sec PA Accel Time: 0.09 sec E/E' lat: 13.2 E/e' average: 13.8 MV dec time: 0.15 sec SV(LVOT): 63.3 ml Reading Physician:01:58 PM
== END ==
PROVIDERS: PCP Nurse Practitioner; Visit Provider Physician Assistant
DX: I08.2 Rheumatic disorders of both aortic and tricuspid valves (principal); I44.7 Left bundle-branch block, unspecified
CPT/HCPCS: 93306

== ENCOUNTER → 2019-10-13 14:46 | Outpatient (CLI) | payer MEDICARE, OTHER, SELFPAY ==
--- NOTE | 2019-10-14 17:41 | DI.NM.S_ITS ---
DATE OF SERVICE: 10/13/2019 PROCEDURE: Pharmacological perfusion study. INDICATIONS: Left bundle-branch block and hypertension. RADIOPHARMACEUTICAL: 25.9 mCi technetium-99m Myoview IV was injected at stress and 25.2 mCi technetium-99m Myoview IV was injected at rest. CARDIAC STRESS: Patient underwent IV Lexiscan perfusion study under the supervision of an attending staff. Patient remained hemodynamically stable. No significant symptoms were reported. Baseline EKG revealed sinus rhythm with underlying left bundle branch block. During stress, there were no convincing new inducible ischemic changes. There were no significant arrhythmias. RAW DATA: There was significance of diaphragmatic activity. Liver is at higher position than heart. Gut shadow was seen as well. GATED STUDY: Resting stress LV ejection fraction 67 and stress LV ejection fraction 71% without any obvious wall motion abnormalities. No transient ischemic dilatation. TID ratio is 1.03, which is within normal limits. Resting LV end-diastolic volume is 69 mL. Lung/heart ratio is 0.35, which is within normal limits. MYOCARDIAL PERFUSION SCAN: Resting supine images revealed, small-to moderate sized mildly decreased perfusion of distal anterior wall extending into the anterior apex and distal anteroseptum. During stress supine and stress prone images, there was small, mildly decreased perfusion of distal anterior wall and distal anterior septum sparing anterior apex. No reversible ischemia. CONCLUSION: Patient has predominantly fixed small-sized mildly decreased perfusion of distal anterior septum and distal anterior wall which appears better in stress supine and stress prone images than resting supine images. No convincing reversible ischemia. There is increased of diaphragmatic activity including gut activity. Patient has underlying left bundle branch block. In stress supine and stress prone images, apex is spared. Most likely we are dealing with this defect due to underlying left bundle-branch block. No convincing ischemia or infarction pattern. Hence, I will call this study likely a normal myocardial perfusion study. Overall this is a low-risk myocardial perfusion study. Clinical correlation is recommended. Holley Saucedo - ADRIEL/janine/ doc#: [id number]/job#: [id number] dd: 10/14/2019 16:33:00 dt: 10/14/2019 17:33:00 DICTATING MD/COPIES TO: Rajni Grimes MD COPIES MNE: CLARA
== END ==
PROVIDERS: Family Provider Nurse Practitioner; PCP Nurse Practitioner; Visit Provider Physician Assistant
DX: I44.7 Left bundle-branch block, unspecified (principal); R06.09 Other forms of dyspnea; I10 Essential (primary) hypertension
CPT/HCPCS: 78452; 93016; 93017; 93018; A9502; J2785

== ENCOUNTER → 2019-12-01 14:24 | Outpatient (CLI) | payer MEDICARE, OTHER, SELFPAY ==
--- NOTE | 2019-12-01 14:31 | DI.RAD.S_ITS ---
PROCEDURE: XR LUMBAR SPINE MIN 4V INDICATIONS: chronic progressive LBP TECHNIQUE: 5 views of the lumbar spine were acquired. COMPARISON: None. FINDINGS: Bones: 5 nonrib-bearing vertebrae are present. There is mildly levoscoliotic bony alignment. No vertebral body compression fractures. No suspicious bony lesions. Note is made of a moderately severe degree of degenerative disc disease with disc height reduction and near and thyww-qr-wzs plate articulation at the disc spaces along the middle and lower thirds of the LS spine. Additionally, facet osteoarthritis is moderately severe over these levels, and there likely is spinal and foraminal stenosis from L2 inferiorly. Mild grade 1 anterolisthesis of L4 on L5 is present due to both facet and disc disease producing ligamentous laxity. Soft tissues: Overlying bowel gas pattern is normal. No suspicious soft tissue calcifications. Oblique images: No pars defects. IMPRESSION: No compression fracture found. 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 As noted, anterolisthesis is present to a mild degree at L4-L5 due to ligamentous laxity. Dictated by: Karl Wheeler M.D. on 12/01/2019 at 15:48 Approved by: Karl Wheeler M.D. on 12/01/2019 at 15:49
[2019-12-01 17:20] LABS: Free T4, Direct Thyroxine 1.27 ng/dL (0.78-2.19)
[2019-12-01 17:34] LABS: Thyroid Stimulating Hormone 1.95 uIU/mL (0.47-4.68)
== END ==
PROVIDERS: PCP Nurse Practitioner; Visit Provider Physical Medicine & Rehabilitation
DX: M54.5 Low back pain (principal); M51.16 Intervertebral disc disorders with radiculopathy, lumbar region; M47.26 Other spondylosis with radiculopathy, lumbar region; M47.27 Other spondylosis with radiculopathy, lumbosacral region; M47.22 Other spondylosis with radiculopathy, cervical region; M43.16 Spondylolisthesis, lumbar region; E03.9 Hypothyroidism, unspecified; G89.29 Other chronic pain
CPT/HCPCS: 36415; 72110; 84439; 84443; 99214

== ENCOUNTER → 2019-12-10 11:05 | Outpatient (CLI) | payer MEDICARE, OTHER, SELFPAY ==
--- NOTE | 2019-12-10 11:09 | DI.MRI.S_ITS ---
PROCEDURE: MR CERVICAL SPINE WO CON INDICATIONS: Cervical radiculopathy TECHNIQUE: Noncontrast sagittal T1 spin echo and T2 fast spin echo, sagittal STIR, foraminal oblique sagittal T2 fast spin echo, and axial gradient echo or T2 fast spin echo through the cervical spine. COMPARISON: [facility], CR, XR CERVICAL SPINE 4V OR 5V, 09/17/2019, 9:41. FINDINGS: Image quality: Diagnostic, with note made of motion artifact. Images are repeated, with some improvement. Alignment and Curvature: There is mild retrolisthesis at C5-C6. Bone Marrow: Marrow demonstrates normal overall signal. Spinal Cord: Visualized spinal cord has normal size and signal. No cerebellar tonsillar herniation. Paraspinous Soft Tissues: No paravertebral masses. Prevertebral soft tissues are normal in thickness. C2-C3: The disc height is well-preserved. Loss of disc signal is seen at this level. Mild to moderate disc osteophyte complex is seen. Moderate facet joint hypertrophy is seen. Moderate bilateral neural foraminal narrowing is seen. Moderate central canal narrowing is seen, with minimal mass effect upon the ventral spinal cord. C3-C4: Moderate loss of disc height is seen. Loss of disc signal is seen. Moderate generalized disc osteophyte complex is seen. Moderate facet joint hypertrophy is seen. There is moderate to severe bilateral neural foraminal narrowing seen. Moderate to severe central canal narrowing is seen, with associated mass effect upon the ventral spinal cord. C4-C5: Moderate to severe loss of disc height and disc signal are seen. Bridging endplate osteophytes are seen. Uncovertebral joint hypertrophy is seen at this level. Moderate to prominent disc osteophyte complex is seen. Moderate to prominent facet joint hypertrophy is seen. There is moderate to severe bilateral neural foraminal narrowing seen, right worse than left. Moderate to severe central canal narrowing is seen, with associated mass effect upon the ventral spinal cord. C5-C6: Vertebral body fusion is seen at this level. Moderate to prominent disc osteophyte complex is seen. There is moderate to severe bilateral neural foraminal narrowing seen, right worse than left. Moderate to severe central canal narrowing is seen, with associated ventricular flattening. C6-C7: At least moderate loss of disc height and disc signal can be seen. Bridging endplate osteophytes are seen. Reactive marrow endplate changes are seen which are hypointense on T1-weighted imaging and hyperintense on T2 weighted imaging, which is most consistent with edema (Modic type I changes). Moderate to prominent disc osteophyte complex is seen. There is moderate to severe right-sided and at least moderate left-sided neural foraminal narrowing seen. Moderate to severe central canal narrowing is seen, with associated ventral cord flattening. C7-T1: Mild loss of disc height is seen. Loss of disc signal is seen. Uhjc-mr-kwspccxm disc osteophyte complex is seen. Vwuk-jv-bsgiowhs facet hypertrophy is seen. There is mild left-sided and no right-sided neural foraminal narrowing seen. No significant central canal narrowing is seen. IMPRESSION: Multiple levels of prominent cervical spine degenerative change are seen. Dictated by: Kennedy Dowling M.D. on 12/10/2019 at 12:30 Approved by: Kennedy Dowling M.D. on 12/10/2019 at 12:35
== END ==
PROVIDERS: PCP Nurse Practitioner; Referring Provider Physical Medicine & Rehabilitation; Visit Provider Physical Medicine & Rehabilitation
DX: M47.22 Other spondylosis with radiculopathy, cervical region (principal)
CPT/HCPCS: 72141

== ENCOUNTER 2019-12-15 10:37 | Outpatient (CLI) | payer MEDICARE, OTHER, SELFPAY ==
[2019-12-15] VITALS (9 sets, daily range): BP systolic 141–188; BP diastolic 72–95; PULSE 88–92; RESP 16–22; TEMP 35.8; O2SAT 95–99
--- NOTE | 2019-12-15 10:40 | DI.RAD.S_ITS ---
PROCEDURE: PAIN C/T INTERLAMINAR INJECT INDICATIONS: SPONDYLOSIS FINDINGS: Fluoroscopic spot filming was performed to verify placement of spinal needles at the C6-C7 level(s), as labeled on the films. Appropriate location(s) of the needle tip(s) was confirmed by injection of iodinated contrast. Dictated by: Oscar Spivey M.D. on 12/15/2019 at 14:43 Approved by: Oscar Spivey M.D. on 12/15/2019 at 14:43
--- NOTE | 2019-12-15 10:46 | PM.PROC.1 ---
Procedures Date/Time Date of procedure: 12/15/19 Time of procedure: 12:10 General Procedure description: PREOP DIAGNOSIS 1. CERVICAL STENOSIS, 2. CERVICAL HNP WITH UPPER EXTREMITY RADICULAR FEATURES, POST OP DIAGNOSIS 1. CERVICAL STENOSIS, 2. CERVICAL HNP WITH UPPER EXTREMITY RADICULAR FEATURES, PROCEDURES 1. FLUORSCOPICALLY GUIDED CONTRAST CONTROLLED INTERLAMINAR EPIDURAL STEROID INJECTION - C6/7 TL ENRIQUETA PHYSICIAN: Refugio Ware, DO INDICATIONS Sandra is referred by CARLYLE Walters for treatment of Cervical HNP with Upper Extremity Paresthesias. FINDINGS Cervical Stenosis due to disc deterioration and nerve root irritation and nerve root irritation DESCRIPTION OF PROCEDURE Fluoroscopically guided, contrast-controlled C6/7 translaminar epidural steroid injection with conscious sedation. Following review of allergy and review of potential side effects and complications, including, but not necessarily limited to, infection, allergic reaction, local tissue breakdown, temporary as well as permanent nerve injury, stroke, paralysis, and possible , the patient indicated that patient understood and agreed to proceed. An informed consent document was signed by the patient, witnessed by a nurse, and placed in the patient's chart. Additionally, other treatment options including modalities, medications, and physical therapy were reviewed with the patient. After review of previous anaesthesic history and IV conscious sedation the patient was deemed safe to proceed with todays procedure with IV conscious sedation as ASA class II designation. Safety time-out was performed to confirm patient ID, procedure to be performed and site of procedure. IV sedation was accomplished with a combination of 2mg of Versed administered by the RN after DO order, titrated to patient comfort during the course of the procedure while the patient remained responsive to all verbal commands. In the prone position, following sterile prep and drape of the cervical region, the C6/7 translaminar space was identified fluoroscopically. The skin was anesthetized via a 25-gauge 1.5-inch needle with 1% lidocaine solution. At this point, a 25-gauge, 2.5-inch short bevel spinal needle was atraumatically introduced and advanced under fluoroscopic guidance into epidural space at the C6/7 translaminar space. Depth was confirmed on lateral view. Radiological data, including multiple fluoroscopic views of the cervical spine, reveal a spinal needle at the C6/7 translaminar space. Lateral views then show placement of the needle in the epidural space. Subsequent views show contrast material flowing superiorly and inferiorly in the epidural space. DSA fluoroscopy with live contrast injection, once again, confirmed no vascular or intrathecal uptake. At this point, using loss of resistance technique with saline and air, the epidural space was entered. Following negative aspiration, injection of approximately 1.5 cc of Isovue-200 with live fluoroscopy in the AP view confirmed epidural flow in the epidural space without vascular or intrathecal uptake observed. Subsequently, a test dose of 1 cc of 1% lidocaine solution was injected and patient was observed for two minutes without signs or symptoms of complications, including abdominal pain, shortness of breath, bilateral upper or lower extremity weakness, nausea and vomiting, prior to steroid injection. At this point, 2cc or 20mg of dexamethasone was then injected without incident. The patient tolerated the procedure well without signs or symptoms of complications prior to being transferred to the recovery area for further monitoring, The patient was then transferred to the recovery area where they were observed for an appropriate period of time after the injection. The patient reported a VAS score of 6 prior to the procedure and a post-procedure VAS of 0. Total Fluoroscopy Time: 28 seconds Total Conscious Time: 24min POST OP INSTRUCTIONS The patient was provided a Pain Log to continue to record their response to the target-specific procedure prior to follow-up visit with the referring provider. Additionally, specific post-injection care instructions and a contact number to our office were provided if concerns arise regarding possible complications associated with the procedure are suspected. Refugio Ware DO Complications: none
[2019-12-15] MEDS: MIDAZOLAM 5 MG/5 ML VIAL IV (11:50)
[2019-12-15] MEDS: BUPIVACAINE 0.25% (PF) VIAL 2 ML INJ (11:58)
[2019-12-15] MEDS: IOPAMIDOL 15 ML VIAL 3 ML INJ (11:58)
[2019-12-15] MEDS: DEXAMETHASONE 10 MG/ML VIAL 20 MG INJ (11:59)
--- NOTE | 2019-12-15 12:05 | PC.NURSE ---
ASSISTING PT OFF TABLE AND TRANSPORTING TO POST PROC AREA IN STABLE CONDITION. PASSING RN CARE OF PT OFF TO VAMSI Pathak RN.
--- NOTE | 2019-12-15 12:30 | PC.NURSE ---
neuro fast exam negative
--- NOTE | 2019-12-15 13:54 | PC.NURSE ---
1213 return from procedure, transfers self to chair, tolerated well, assuming care from Roslyn lay snacks provided and tolerated.
== END 2019-12-15 12:50 | disposition home or self-care (01) ==
LOC: RAD 10:39
PROVIDERS: PCP Nurse Practitioner; Referring Provider Physical Medicine & Rehabilitation; Visit Provider Physical Medicine & Rehabilitation
DX: M48.02 Spinal stenosis, cervical region (principal); M50.123 Cervical disc disorder at C6-C7 level with radiculopathy; R20.2 Paresthesia of skin
CPT/HCPCS: 62321; 99152; J1100; J2250; J3010

== ENCOUNTER → 2020-04-29 13:52 | Outpatient (CLI) | payer MEDICARE, OTHER, SELFPAY ==
[2020-04-29 15:15] LABS: BUN Creatinine Ratio 31.7 (6-22); Blood Urea Nitrogen 32 mg/dL (7-17); Calcium 9.5 mg/dL (8.4-10.2); Carbon Dioxide 32 mmol/L (22-32); Chloride 96 mmol/L (98-107); Estimated Glomerular Filt Rate 52.3 mL/min (>60); Glucose 99 mg/dL (80-110); HEMOLYSIS < 15 (0-50); Potassium 4.6 mmol/L (3.4-5.1); Sodium 137 mmol/L (137-145)
== END ==
PROVIDERS: PCP Nurse Practitioner; Referring Provider Physician Assistant Medical; Visit Provider Physician Assistant Medical
DX: I51.9 Heart disease, unspecified (principal)
CPT/HCPCS: 36415; 80048

== ENCOUNTER → 2020-09-03 11:54 | Outpatient (CLI) | payer MEDICARE, OTHER, SELFPAY ==
--- NOTE | 2020-09-03 12:27 | DI.RAD.S_ITS ---
PROCEDURE: XR ABDOMEN 1V INDICATIONS: abdominal pain TECHNIQUE: One view of the abdomen acquired. COMPARISON: None. FINDINGS: Surgical changes and devices: None. Bowel: Bowel gas pattern is normal. Soft tissues: No suspicious abdominal calcifications. Visualized solid organ contours appear normal in size. Bones: No suspicious bony lesions. IMPRESSION: No source for abdominal pain identified. If pain persists, consider CT. Dictated by: Sean BECKER Interpreted: Kelly Rose MD on 09/03/2020 at 14:39 Approved by: Kelly Rose M.D. on 09/07/2020 at 11:18
[2020-09-03 13:45] LABS: Add Manual Diff / Slide Review NO; Basophils Absolute Auto 100 /uL (0-100); Basophils Percent Auto 1.3 % (0-2); Eosinophils Absolute Auto 200 /uL (0-450); Eosinophils Percent Auto 4.5 % (2-4); Hemoglobin 13.1 g/dL (12.0-16.0); Lymphocytes Absolute Auto 1000 /uL (1100-4500); Lymphocytes Percent Auto 21.4 % (25-40); Mean Corpuscular HGB Conc 32.7 % (30-36); Mean Corpuscular Hemoglobin 30.7 PG (26-34); Monocytes Absolute Auto 600 /uL (0-900); Neutrophils Absolute Auto 2600 /uL (1500-7000); Neutrophils Percent Auto 58.8 % (50-75); Platelet Count 259 X10^3/uL (150-400); Red Blood Cell Count 4.25 X10^6/uL (4.0-5.2); Red Cell Distribution Width 14.8 % (11.6-14.8); White Blood Cell Count 4.5 X10^3/uL (4.5-11.0)
[2020-09-03 14:12] LABS: Alanine Aminotransferase 13 IU/L (<35); Albumin 4.2 g/dL (3.5-5.0); Albumin Globulin Ratio 1.2 (1.0-2.8); Alkaline Phosphatase 51 U/L (38-126); Aspartate Aminotransferase 32 IU/L (14-36); BUN Creatinine Ratio 31.6 (6-22); Bilirubin Total 0.5 mg/dL (0.2-1.3); Blood Urea Nitrogen 30 mg/dL (7-17); Carbon Dioxide 35 mmol/L (22-32); Chloride 99 mmol/L (98-107); Globulin 3.5 g/dL (1.7-4.1); Glucose 96 mg/dL (80-110); HEMOLYSIS < 15 (0-50); Lipase 407 U/L (23-300); Potassium 4.2 mmol/L (3.4-5.1); Sodium 138 mmol/L (137-145); Total Protein 7.7 g/dL (6.3-8.2)
== END ==
PROVIDERS: PCP Nurse Practitioner; Referring Provider Registered Nurse; Visit Provider Registered Nurse
DX: R39.9 Unspecified symptoms and signs involving the genitourinary system (principal); R10.9 Unspecified abdominal pain; R19.8 Other specified symptoms and signs involving the digestive system and abdomen
CPT/HCPCS: 36415; 74018; 80053; 83690; 85025; 87086

== ENCOUNTER → 2020-09-09 09:01 | Outpatient (CLI) | payer MEDICARE, OTHER, SELFPAY ==
--- NOTE | 2020-09-09 09:02 | DI.US.S_ITS ---
PROCEDURE: US ABDOMEN COMPLETE INDICATIONS: ABDOMINAL PAIN TECHNIQUE: Real-time scanning was performed of the abdominal and retroperitoneal organs, with image documentation. COMPARISON: [facility], CT, CHEST/ABD/PEL WITH CONTRAST, 05/14/2017, 14:06. FINDINGS: Liver: Liver is diffusely increased in echogenicity. No focal hepatic abnormalities identified. Normal hepatic size. Gallbladder: No gallstones identified. Normal gallbladder wall. No pericholecystic fluid. Negative sonographic Aburto sign. Biliary ducts: Intrahepatic bile ducts are non-dilated. Extrahepatic bile duct caliber measures 4.8 mm. Normal is 6-7 mm or less in diameter, or 10 mm or less post-cholecystectomy. Pancreas: Visualized portions of the pancreas are sonographically normal. Spleen: Spleen is normal in size and homogeneous in echotexture. Kidneys: Kidneys are normal in size and echotexture. Right kidney measures 7.6 cm long; left kidney measures 8.1 cm long. No hydronephrosis or nephrolithiasis. No solid masses. Inferior right renal cyst measuring 4.5 cm. Aorta: Visualized aorta is normal in caliber at less than 3 cm. Iliacs: Proximal common iliac arteries are normal in caliber at less than 2.5 cm. IVC: Intrahepatic inferior vena cava is patent. Miscellaneous: No free abdominal fluid. IMPRESSION: 1. Minimally increased hepatic echogenicity noted possibly related to hepatic steatosis but other sources of hepatocellular disease cannot be excluded. Recommend clinical correlation. 2. Right renal cyst. 3. No source for abdominal pain identified. Dictated by: Sean BECKER Interpreted: Lindsey Soler MD on 09/09/2020 at 11:00 Approved by: Lindsey Soler M.D. on 09/09/2020 at 13:06
== END ==
PROVIDERS: PCP Nurse Practitioner; Referring Provider Registered Nurse; Visit Provider Registered Nurse
DX: R10.9 Unspecified abdominal pain (principal); N28.1 Cyst of kidney, acquired
CPT/HCPCS: 76700

== ENCOUNTER → 2020-09-17 15:18 | Outpatient (CLI) | payer MEDICARE, OTHER, SELFPAY ==
[2020-09-17 17:22] LABS: Lipase 207 U/L (23-300)
== END ==
PROVIDERS: PCP Nurse Practitioner; Referring Provider Registered Nurse; Visit Provider Registered Nurse
DX: R74.8 Abnormal levels of other serum enzymes (principal)
CPT/HCPCS: 36415; 83690

== ENCOUNTER → 2020-12-02 13:55 | Outpatient (CLI) | payer MEDICARE, OTHER, SELFPAY ==
[2020-12-02 16:41] LABS: Alanine Aminotransferase 14 IU/L (<35); Albumin 4.2 g/dL (3.5-5.0); Albumin Globulin Ratio 1.4 (1.0-2.8); Alkaline Phosphatase 51 U/L (38-126); Aspartate Aminotransferase 31 IU/L (14-36); BUN Creatinine Ratio 32.5 (6-22); Bilirubin Total 0.3 mg/dL (0.2-1.3); Blood Urea Nitrogen 26 mg/dL (7-17); Calcium 8.6 mg/dL (8.4-10.2); Carbon Dioxide 34 mmol/L (22-32); Chloride 98 mmol/L (98-107); Cholesterol 183 mg/dL (140-199); Estimated Glomerular Filt Rate > 60.0 mL/min (>60); Globulin 3.1 g/dL (1.7-4.1); Glucose 96 mg/dL (80-110); HDL Cholesterol 66 mg/dL (40-60); HEMOLYSIS < 15 (0-50); LDL Cholesterol Calculated 104 mg/dL (<100); Magnesium 2.2 mg/dL (1.6-2.3); Potassium 3.9 mmol/L (3.4-5.1); Sodium 135 mmol/L (137-145); Total Protein 7.3 g/dL (6.3-8.2); Triglycerides 63 mg/dL (35-150)
[2020-12-02 17:10] LABS: Thyroid Stimulating Hormone 0.077 uIU/mL (0.47-4.68)
== END ==
PROVIDERS: PCP Nurse Practitioner; Referring Provider Nurse Practitioner; Visit Provider Nurse Practitioner
DX: F10.20 Alcohol dependence, uncomplicated (principal); E03.9 Hypothyroidism, unspecified; F33.2 Major depressive disorder, recurrent severe without psychotic features; F41.1 Generalized anxiety disorder; G47.00 Insomnia, unspecified; I50.9 Heart failure, unspecified; K59.00 Constipation, unspecified; R19.8 Other specified symptoms and signs involving the digestive system and abdomen; R63.0 Anorexia; E78.5 Hyperlipidemia, unspecified; R25.3 Fasciculation; Z79.899 Other long term (current) drug therapy
CPT/HCPCS: 36415; 80053; 80061; 83735; 84443

== ENCOUNTER → 2021-02-16 09:01 | Outpatient (CLI) | payer MEDICARE, OTHER, SELFPAY ==
--- NOTE | 2021-02-16 | DI.ECHO.S_ITS ---
[facility] +---------+ : : [address] : : : : [id number] : : : : Phone: [phone]---------+ Echocardiogram Report + + :Name: ESPINOZA MOISE Study Date: 02/16/2021 Height: 63 in : :[facility] ReadingLocation: Weight: 115 lb : : Gender: Female BSA: 1.5 m2 : :: 1935 Age: 85 yrs BP: 165/100 mmHg: :Reason For Study: LEFT BUNDLE BRANCH BLOCK : :Ordering Physician: KELIN, : :ARMOND Performed By: Katie Beatty : :Referring: ARMOND NEVILLE : + + Interpretation Summary The ejection fraction is estimated to be 45-50%. Septal motion is consistent with conduction abnormality. There is mild to moderate aortic regurgitation. This is unchanged compared to the previous study. There is mild tricuspid regurgitation. The right ventricular systolic pressure is estimated to be at least 31 mmHg based on an estimated right atrial pressure of 3 mm Hg. Procedure: A two-dimensional transthoracic echocardiogram with color flow and Doppler was performed. The study quality was technically adequate. Comparison is made with the echocardiogram of 10/01/2019. The patient had a bundle branch block rhythm during the exam. The heart rate ranged between 82- 89 bpm during the study. Left Ventricle: The left ventricle is normal in size. Proximal septal thickening is noted. The ejection fraction is estimated to be 45-50%. There has been no significant change since the previous exam. Septal motion is consistent with conduction abnormality. Right Ventricle: The right ventricle is normal in size and function. Atria: The left atrial size is normal. Right atrial size is normal. There is no Doppler evidence for an interatrial shunt. Mitral Valve: The mitral valve leaflets appear mildly thickened, but open well. There is trace mitral regurgitation. Aortic Valve: There is mild aortic valve sclerosis. The aortic valve is trileaflet. The aortic valve opens well. There is no aortic valve stenosis. There is mild to moderate aortic regurgitation. This is unchanged compared to the previous study. Tricuspid Valve: The tricuspid valve is normal in structure and function. There is mild tricuspid regurgitation. The right ventricular systolic pressure is estimated to be at least 31 mmHg based on an estimated right atrial pressure of 3 mm Hg. Pulmonic Valve: The pulmonic valve leaflets are thin and pliable; valve motion is normal. There is mild to moderate pulmonic regurgitation. Great Vessels: The aortic root is normal size. The dimensions of the ascending aorta are normal. The IVC is of normal diameter and collapses greater than 50% with a sniff. This suggests a low right atrial pressure of 3 mm Hg. Pericardium/ Pleura There is no pericardial effusion. There is no pleural effusion. MMode/2D Measurements & Calculations LVIDd: 4.1 cm LVOT diam: 2.2 cm LVIDs: 2.9 cm Ao root diam: 3.5 cm FS: 27.9 % asc Aorta Diam: 3.3 cm IVSd: 0.80 cm Ao Arch Diam (Prox Trans): 2.1 cm LVPWd: 0.86 cm LV ruiz. diameter/BSA (cm/m^2): 2.7 LV sys. diameter/BSA (cm/m^2): 1.9 LA A2 area: 16.4 cm2 RA long axis: 4.2 cm LA A4 area: 15.5 cm2 RA area: 11.6 cm2 LA length (vol): 4.5 cm RA vol: 27.4 ml LA vol: 47.5 ml RA : 17.9 ml/m2 LA vol index: 31.0 ml/m2 IVC diam: 1.4 cm RVD1 (basal): 2.4 cm TAPSE: 1.7 cm Doppler Measurements & Calculations Ao V2 max: 109.4 cm/sec LVOT Max Owen: 76.7 cm/sec Ao V2 mean: 75.7 cm/sec LV V1 max P.4 mmHg Ao max P.8 mmHg LV V1 VTI: 15.3 cm Ao mean P.6 mmHg PHILIP(I,D): 3.1 cm2 Ao V2 VTI: 18.6 cm PHILIP(V,D): 2.6 cm2 sev ratio: 0.82 PHILIP indexed to BSA (cm^2/m^2): 2.0 MV E max owen: 72.1 cm/sec TR max owen: 264.8 cm/sec MV A max owen: 141.0 cm/sec TR max P.2 mmHg MV E/A: 0.51 PA pr(Accel): 60.2 mmHg Med Peak E' Owen: 2.8 cm/sec E/E' med: 25.3 Lat Peak E' Owen: 4.4 cm/sec E/E' lat: 16.5 E/e' average: 20.9 MV dec time: 0.12 sec SV(LVOT): 57.6 ml Reading Physician:01:31 PM
== END ==
PROVIDERS: PCP Nurse Practitioner; Referring Provider Physician Assistant Medical; Visit Provider Physician Assistant Medical
DX: I08.2 Rheumatic disorders of both aortic and tricuspid valves (principal); I44.7 Left bundle-branch block, unspecified
CPT/HCPCS: 93306

== ENCOUNTER → 2021-05-25 16:06 | Outpatient (CLI) | payer MEDICARE, OTHER, SELFPAY ==
[2021-05-25 17:53] LABS: Thyroid Stimulating Hormone 0.022 uIU/mL (0.47-4.68)
== END ==
PROVIDERS: PCP Nurse Practitioner; Referring Provider Nurse Practitioner; Visit Provider Nurse Practitioner
DX: E03.9 Hypothyroidism, unspecified (principal); G47.00 Insomnia, unspecified; I10 Essential (primary) hypertension; Z79.899 Other long term (current) drug therapy
CPT/HCPCS: 36415; 84443

== ENCOUNTER → 2021-09-19 10:32 | Outpatient (CLI) | payer MEDICARE, OTHER, SELFPAY ==
[2021-09-19 12:04] LABS: Alanine Aminotransferase 16 IU/L (<35); Albumin 4.4 g/dL (3.5-5.0); Albumin Globulin Ratio 1.3 (1.0-2.8); Alkaline Phosphatase 59 U/L (38-126); Aspartate Aminotransferase 35 IU/L (14-36); BUN Creatinine Ratio 24.7 (6-22); Bilirubin Total 0.4 mg/dL (0.2-1.3); Blood Urea Nitrogen 20 mg/dL (7-17); Calcium 9.1 mg/dL (8.4-10.2); Carbon Dioxide 34 mmol/L (22-32); Chloride 95 mmol/L (98-107); Estimated Glomerular Filt Rate > 60.0 mL/min (>60); Globulin 3.3 g/dL (1.7-4.1); Glucose 97 mg/dL (80-110); HEMOLYSIS < 15 (0-50); Potassium 4.5 mmol/L (3.4-5.1); Sodium 137 mmol/L (137-145); Total Protein 7.7 g/dL (6.3-8.2)
[2021-09-19 12:33] LABS: Thyroid Stimulating Hormone < 0.015 uIU/mL (0.47-4.68)
== END ==
PROVIDERS: PCP Nurse Practitioner; Referring Provider Nurse Practitioner; Visit Provider Nurse Practitioner
DX: F33.2 Major depressive disorder, recurrent severe without psychotic features (principal); E03.9 Hypothyroidism, unspecified; I10 Essential (primary) hypertension; I50.42 Chronic combined systolic (congestive) and diastolic (congestive) heart failure
CPT/HCPCS: 36415; 80053; 84443; 90834

== ENCOUNTER → 2022-02-15 11:18 | Outpatient (CLI) | payer MEDICARE, OTHER, SELFPAY ==
[2022-02-15 12:56] LABS: Add Manual Diff / Slide Review NO; Basophils Absolute Auto 0 /uL (0-100); Basophils Percent Auto 0.6 % (0-2); Eosinophils Absolute Auto 200 /uL (0-450); Eosinophils Percent Auto 3.1 % (2-4); Hematocrit 47.2 % (36-46); Hemoglobin 15.9 g/dL (12.0-16.0); Lymphocytes Absolute Auto 1000 /uL (1100-4500); Lymphocytes Percent Auto 18.2 % (25-40); Mean Corpuscular HGB Conc 33.6 % (30-36); Mean Corpuscular Hemoglobin 31.9 PG (26-34); Monocytes Absolute Auto 600 /uL (0-900); Monocytes Percent Auto 11.1 % (3-14); Neutrophils Absolute Auto 3800 /uL (1500-7000); Platelet Count 185 X10^3/uL (150-400); Red Blood Cell Count 4.97 X10^6/uL (4.0-5.2); Red Cell Distribution Width 13.4 % (11.6-14.8); White Blood Cell Count 5.7 X10^3/uL (4.5-11.0)
[2022-02-15 14:05] LABS: Alanine Aminotransferase 16 IU/L (<35); Albumin 4.7 g/dL (3.5-5.0); Albumin Globulin Ratio 1.3 (1.0-2.8); Alkaline Phosphatase 71 U/L (38-126); Aspartate Aminotransferase 29 IU/L (14-36); BUN Creatinine Ratio 26.5 (6-22); Bilirubin Total 0.4 mg/dL (0.2-1.3); Blood Urea Nitrogen 22 mg/dL (7-17); Calcium 9.2 mg/dL (8.4-10.2); Carbon Dioxide 36 mmol/L (22-32); Chloride 94 mmol/L (98-107); Cholesterol 217 mg/dL (140-199); Estimated Glomerular Filt Rate > 60 mL/min (>60); Globulin 3.5 g/dL (1.7-4.1); Glucose 105 mg/dL (80-110); HDL Cholesterol 84 mg/dL (40-60); HEMOLYSIS < 15 (0-50); LDL Cholesterol Calculated 119 mg/dL (<100); Magnesium 2.1 mg/dL (1.6-2.3); Potassium 4.4 mmol/L (3.4-5.1); Sodium 139 mmol/L (137-145); Total Protein 8.2 g/dL (6.3-8.2); Triglycerides 72 mg/dL (35-150)
[2022-02-15 14:10] LABS: NT-proBNP (BNP-Adult 18+) 184 pg/mL (<450)
[2022-02-15 14:37] LABS: Thyroid Stimulating Hormone 0.016 uIU/mL (0.47-4.68)
== END ==
PROVIDERS: PCP Nurse Practitioner; Referring Provider Internal Medicine Cardiovascular Disease; Visit Provider Internal Medicine Cardiovascular Disease
DX: I50.22 Chronic systolic (congestive) heart failure (principal); I10 Essential (primary) hypertension; I42.3 Endomyocardial (eosinophilic) disease; I42.8 Other cardiomyopathies
CPT/HCPCS: 36415; 80053; 80061; 83735; 83880; 84443; 85025

== ENCOUNTER → 2022-03-16 14:52 | Outpatient (CLI) | payer MEDICARE, OTHER, SELFPAY ==
--- NOTE | 2022-03-16 14:56 | DI.ECHO.S_ITS ---
[facility]---------+ [facility] +---------+ : : [address] : [address] : [address] : : : : [id number] : : : : Phone: [phone] +---------+ Echocardiogram Report + + :Name: ESPINOZA MOISE Study Date: 03/16/2022 Height: 63 in : :[facility] : Weight: 116 lb : : Gender: Female BSA: 1.5 m2 : :: 1935 Age: 86 yrs BP: 197/108 mmHg: :Reason For Study: Congestive Heart Failure : :Ordering Physician: Aydee : :Filiberto Pena Performed By: Chicho Pérez : :Referring: AYDEE PENA : + + Interpretation Summary 1) Normal left ventricular size with borderline reduced systolic function (EF about 50%. 2) Normal right ventricular size and function. 3) There is mild to moderate aortic regurgitation. 4) Significant hypertension present during the study (BP 197/108mmHg). 5) Compared to the Echo done 02/16/2021, no significant change. Procedure: A two-dimensional transthoracic echocardiogram with color flow and Doppler was performed. The study quality was technically adequate. Comparison is made with the echocardiogram of 02/16/2021. Left Ventricle: The left ventricle is normal in size and wall thickness. Left ventricular systolic function is borderline reduced. This is unchanged compared to the previous study. Left ventricular ejection fraction is estimated to be 50%. Septal motion is consistent with conduction abnormality. Diastolic parameters suggest a pseudonormalization pattern, consistent with probable elevated filling pressures. Right Ventricle: The right ventricle is normal in size and function. Atria: Both atria are normal in size. The interatrial septum grossly appears intact with no obvious evidence for an atrial septal defect. Mitral Valve: The mitral valve leaflets are mildly calcified. There is trace mitral regurgitation. Aortic Valve: There is mild aortic valve sclerosis. There is no aortic valve stenosis. There is mild to moderate aortic regurgitation. Tricuspid Valve: The tricuspid valve is normal in structure and function. There is mild tricuspid regurgitation. The right ventricular systolic pressure is estimated to be at least 36 mmHg based on an estimated right atrial pressure of 3 mm Hg. Pulmonic Valve: The pulmonic valve is normal in structure and function. There is mild pulmonic regurgitation. Great Vessels: The aortic root is normal size. The dimensions of the ascending aorta are normal. The IVC is of normal diameter and collapses greater than 50% with a sniff. This suggests a low right atrial pressure of 3 mm Hg. Pericardium/ Pleura There is no pericardial effusion. There is no pleural effusion. MMode/2D Measurements & Calculations LVIDd: 3.9 cm LVOT diam: 2.1 cm LVIDs: 2.9 cm Ao root diam: 3.6 cm FS: 25.9 % asc Aorta Diam: 3.3 cm IVSd: 1.0 cm LVPWd: 0.99 cm LV ruiz. diameter/BSA (cm/m^2): 2.5 LV sys. diameter/BSA (cm/m^2): 1.9 LA A2 area: 14.3 cm2 RA long axis: 4.3 cm LA A4 area: 14.4 cm2 RA area: 13.1 cm2 LA length (vol): 4.6 cm RA vol: 34.0 ml LA vol: 38.2 ml RA : 22.1 ml/m2 LA vol index: 24.9 ml/m2 TAPSE: 1.9 cm Doppler Measurements & Calculations Ao V2 max: 108.6 cm/sec LVOT Max Owen: 81.9 cm/sec Ao V2 mean: 76.5 cm/sec LV V1 max P.7 mmHg Ao max P.7 mmHg LV V1 VTI: 16.5 cm Ao mean P.6 mmHg PHILIP(I,D): 2.7 cm2 Ao V2 VTI: 21.7 cm PHILIP(V,D): 2.7 cm2 sev ratio: 0.76 PHILIP indexed to BSA (cm^2/m^2): 1.8 AI P1/2t: 376.2 msec AI dec slope: 367.6 cm/sec2 MV E max owen: 71.6 cm/sec TR max owen: 289.5 cm/sec MV A max owen: 121.8 cm/sec TR max P.5 mmHg MV E/A: 0.59 Med Peak E' Owen: 4.0 cm/sec E/E' med: 18.1 Lat Peak E' Owen: 5.0 cm/sec E/E' lat: 14.4 E/e' average: 16.2 MV dec time: 0.23 sec SV(LVOT): 59.3 ml Reading Physician:12:38 PM
== END ==
PROVIDERS: PCP Nurse Practitioner; Referring Provider Internal Medicine Cardiovascular Disease; Visit Provider Internal Medicine Cardiovascular Disease
DX: I08.2 Rheumatic disorders of both aortic and tricuspid valves; I50.22 Chronic systolic (congestive) heart failure
CPT/HCPCS: 93306

== ENCOUNTER → 2022-05-13 12:18 | Outpatient (CLI) | payer MEDICARE, OTHER, SELFPAY ==
[2022-05-13 13:19] LABS: Add Manual Diff / Slide Review NO; Basophils Absolute Auto 0 /uL (0-100); Basophils Percent Auto 0.6 % (0-2); Eosinophils Absolute Auto 200 /uL (0-450); Eosinophils Percent Auto 3.9 % (2-4); Hematocrit 41.4 % (36-46); Lymphocytes Absolute Auto 900 /uL (1100-4500); Lymphocytes Percent Auto 18.6 % (25-40); Mean Corpuscular HGB Conc 33.9 % (30-36); Mean Corpuscular Hemoglobin 32.6 PG (26-34); Mean Corpuscular Volume 96.3 fL (80-100); Monocytes Absolute Auto 600 /uL (0-900); Monocytes Percent Auto 12.4 % (3-14); Neutrophils Absolute Auto 3100 /uL (1500-7000); Neutrophils Percent Auto 64.5 % (50-75); Platelet Count 210 X10^3/uL (150-400); Red Cell Distribution Width 14.2 % (11.6-14.8); White Blood Cell Count 4.9 X10^3/uL (4.5-11.0)
[2022-05-13 14:07] LABS: Alanine Aminotransferase 14 IU/L (<35); Albumin 4.3 g/dL (3.5-5.0); Albumin Globulin Ratio 1.4 (1.0-2.8); Alkaline Phosphatase 50 U/L (38-126); Aspartate Aminotransferase 30 IU/L (14-36); BUN Creatinine Ratio 25.3 (6-22); Bilirubin Total 0.6 mg/dL (0.2-1.3); Blood Urea Nitrogen 21 mg/dL (7-17); Calcium 8.7 mg/dL (8.4-10.2); Carbon Dioxide 34 mmol/L (22-32); Chloride 95 mmol/L (98-107); Cholesterol 175 mg/dL (140-199); Estimated Glomerular Filt Rate > 60 mL/min (>60); Globulin 3.1 g/dL (1.7-4.1); Glucose 100 mg/dL (80-110); HDL Cholesterol 66 mg/dL (40-60); HEMOLYSIS < 15 (0-50); LDL Cholesterol Calculated 95 mg/dL (<100); Magnesium 2.1 mg/dL (1.6-2.3); Potassium 4.3 mmol/L (3.4-5.1); Sodium 134 mmol/L (137-145); Total Protein 7.4 g/dL (6.3-8.2); Triglycerides 71 mg/dL (35-150)
[2022-05-13 14:12] LABS: NT-proBNP (BNP-Adult 18+) 269 pg/mL (<450)
[2022-05-13 14:35] LABS: Thyroid Stimulating Hormone 0.054 uIU/mL (0.47-4.68)
== END ==
PROVIDERS: PCP Nurse Practitioner; Referring Provider Internal Medicine Cardiovascular Disease; Visit Provider Internal Medicine Cardiovascular Disease
DX: I10 Essential (primary) hypertension (principal); I50.22 Chronic systolic (congestive) heart failure; I42.8 Other cardiomyopathies
CPT/HCPCS: 36415; 80053; 80061; 83735; 83880; 84443; 85025

== ENCOUNTER → 2022-06-29 14:47 | Outpatient (CLI) | payer MEDICARE, OTHER, SELFPAY ==
[2022-06-29 16:34] LABS: Thyroid Stimulating Hormone 0.182 uIU/mL (0.47-4.68)
== END ==
PROVIDERS: PCP Nurse Practitioner; Referring Provider Nurse Practitioner; Visit Provider Nurse Practitioner
DX: E03.9 Hypothyroidism, unspecified (principal)
CPT/HCPCS: 36415; 84443

== ENCOUNTER → 2022-07-20 15:17 | Outpatient (CLI) | payer MEDICARE, OTHER, SELFPAY ==
[2022-07-20 17:13] LABS: BUN Creatinine Ratio 22.6 (6-22); Blood Urea Nitrogen 19 mg/dL (7-17); Calcium 8.7 mg/dL (8.4-10.2); Carbon Dioxide 30 mmol/L (22-32); Chloride 93 mmol/L (98-107); Estimated Glomerular Filt Rate > 60 mL/min (>60); Glucose 94 mg/dL (80-110); HEMOLYSIS < 15 (0-50); Potassium 4.1 mmol/L (3.4-5.1); Sodium 135 mmol/L (137-145)
== END ==
PROVIDERS: PCP Nurse Practitioner; Referring Provider Nurse Practitioner Acute Care; Visit Provider Nurse Practitioner Acute Care
DX: I50.22 Chronic systolic (congestive) heart failure (principal)
CPT/HCPCS: 36415; 80048

== ENCOUNTER → 2022-08-02 15:17 | Outpatient (CLI) | payer MEDICARE, OTHER, SELFPAY ==
[2022-08-02 17:59] LABS: Thyroid Stimulating Hormone 0.113 uIU/mL (0.47-4.68)
== END ==
PROVIDERS: PCP Nurse Practitioner; Referring Provider Internal Medicine Cardiovascular Disease; Visit Provider Nurse Practitioner
DX: E03.9 Hypothyroidism, unspecified (principal)
CPT/HCPCS: 36415; 84443

== ENCOUNTER → 2022-08-07 13:44 | Outpatient (CLI) | payer MEDICARE, OTHER, SELFPAY ==
[2022-08-07 14:55] LABS: BUN Creatinine Ratio 30.8 (6-22); Blood Urea Nitrogen 20 mg/dL (7-17); Calcium 8.3 mg/dL (8.4-10.2); Carbon Dioxide 28 mmol/L (22-32); Chloride 94 mmol/L (98-107); Estimated Glomerular Filt Rate > 60 mL/min (>60); Glucose 84 mg/dL (80-110); HEMOLYSIS 17 (0-50); Potassium 4.4 mmol/L (3.4-5.1); Sodium 131 mmol/L (137-145)
== END ==
PROVIDERS: PCP Nurse Practitioner; Referring Provider Nurse Practitioner Acute Care; Visit Provider Nurse Practitioner Acute Care
DX: I10 Essential (primary) hypertension (principal)
CPT/HCPCS: 36415; 80048

== ENCOUNTER → 2022-10-09 14:31 | Outpatient (CLI) | payer MEDICARE, OTHER, SELFPAY ==
[2022-10-09 17:14] LABS: BUN Creatinine Ratio 31.2 (6-22); Blood Urea Nitrogen 24 mg/dL (7-17); Calcium 8.9 mg/dL (8.4-10.2); Carbon Dioxide 30 mmol/L (22-32); Chloride 93 mmol/L (98-107); Estimated Glomerular Filt Rate > 60 mL/min (>60); Glucose 103 mg/dL (80-110); HEMOLYSIS < 15 (0-50); Potassium 4.8 mmol/L (3.4-5.1); Sodium 131 mmol/L (137-145)
[2022-10-09 17:33] LABS: Thyroid Stimulating Hormone 2.02 uIU/mL (0.47-4.68)
== END ==
PROVIDERS: PCP Nurse Practitioner; Referring Provider Nurse Practitioner; Visit Provider Nurse Practitioner
DX: E87.1 Hypo-osmolality and hyponatremia (principal); T50.2X1A Poisoning by carbonic-anhydrase inhibitors, benzothiadiazides and other diuretics, accidental (unintentional), initial encounter; E03.9 Hypothyroidism, unspecified
CPT/HCPCS: 36415; 80048; 83735; 84443

== ENCOUNTER → 2023-01-04 14:22 | Outpatient (CLI) | payer MEDICARE, OTHER, SELFPAY ==
[2023-01-04 15:53] LABS: Thyroid Stimulating Hormone 3.26 uIU/mL (0.47-4.68)
== END ==
PROVIDERS: PCP Nurse Practitioner; Referring Provider Nurse Practitioner; Visit Provider Nurse Practitioner
DX: E03.9 Hypothyroidism, unspecified (principal); Z79.899 Other long term (current) drug therapy
CPT/HCPCS: 36415; 84443

== ENCOUNTER → 2023-01-24 13:03 | Outpatient (CLI) | payer MEDICARE, OTHER, SELFPAY ==
[2023-01-25 10:15] LABS: Fecal Immunochemical Test Negative (Negative)
== END ==
PROVIDERS: PCP Nurse Practitioner; Referring Provider Nurse Practitioner; Visit Provider Nurse Practitioner
DX: Z12.11 Encounter for screening for malignant neoplasm of colon (principal)
CPT/HCPCS: 82274

== ENCOUNTER → 2023-02-16 16:52 | Outpatient (CLI) | payer MEDICARE, OTHER, SELFPAY ==
[2023-02-16 18:00] LABS: BUN Creatinine Ratio 24.1 (6-22); Blood Urea Nitrogen 21 mg/dL (7-17); Calcium 8.6 mg/dL (8.4-10.2); Carbon Dioxide 30 mmol/L (22-32); Chloride 96 mmol/L (98-107); Estimated Glomerular Filt Rate > 60 mL/min (>60); Glucose 89 mg/dL (80-110); HEMOLYSIS < 15 (0-50); Potassium 4.3 mmol/L (3.4-5.1); Sodium 134 mmol/L (137-145)
== END ==
PROVIDERS: PCP Nurse Practitioner; Referring Provider Nurse Practitioner Acute Care; Visit Provider Nurse Practitioner Acute Care
DX: I10 Essential (primary) hypertension (principal)
CPT/HCPCS: 36415; 80048

== ENCOUNTER → 2023-04-19 12:14 | Outpatient (CLI) | payer MEDICARE, OTHER, SELFPAY ==
--- NOTE | 2023-04-19 12:36 | DI.DEXA.S_ITS ---
Bone Density Report Name: KEVIN MOISE Age: 87 Sex: Female Ethnicity: White Date of : 1935 Indication: osteopenia; Referring Provider: PATRICK LEVIN Study: Bone densitometry was performed. Exam Date: April 19, 2023 Accession number: [id number] Bone Density: Region BMD T-score Z-score Classification Femoral Neck (Left) 0.649 -1.8 0.7 Osteopenia Total Hip (Left) 0.724 -1.8 0.5 Osteopenia Femoral Neck (Right) 0.594 -2.3 0.2 Osteopenia Total Hip (Right) 0.709 -1.9 0.4 Osteopenia Total Hip Mean 0.717 -1.9 0.5 Osteopenia Total Forearm (Left) 0.467 -2.1 Osteopenia 1/3 Forearm (Left) 0.563 -2.2 Osteopenia UD Forearm (Left) 0.386 -1.0 Normal World Health Organization criteria for BMD impression classify patients as: Normal (T-score at or above -1.0), Osteopenia (T-score between -1.0 and -2.5), or Osteoporosis (T-score at or below -2.5). 10-year Fracture Risk(1): Major Osteoporotic Fracture 14% Hip Fracture 4.9% Reported Risk Factors: [place] (), Neck BMD=0.594, BMI=21.3 (1) FRAX(R) Version 3.08. Fracture probability calculated for an untreated patient. Fracture probability may be lower if the patient has received treatment. Previous Exams: -- Region Exam Age BMD T-score BMD Change BMD Change Date g/cm2 vs Baseline vs Previous -- Total Hip(Left) 04/19/2023 87 0.724 -1.8 -0.098 (-11.9%)# -0.098 (-11.9%)# 01/09/2017 81 0.822 -1.0 Total Hip(Right) 04/19/2023 87 0.709 -1.9 -0.085 (-10.7%)# -0.085 (-10.7%)# 01/09/2017 81 0.794 -1.2 -- *Denotes significance at 95% confidence level, LSC for Total Hip = 0.027 g/cm2 # Denotes dissimilar scan types or analysis methods Impression: The patient has low bone mass, based on the Right Femoral Neck T-score. The patient has an estimated ten-year risk of hip fracture of 4.9% and an estimated ten-year risk of major fracture of 14%, based on the WHO FRAX algorithm. No significant bone loss was observed. Discussion: BONE DENSITY IS LOW AT ONE OR MORE SKELETAL SITES. THE PATIENT'S BMD AND CLINICAL RISK FACTORS CONTRIBUTE TO THIS PATIENT'S INCREASED RISK OF FRACTURE. This patient's lowest T-score is low at one or more skeletal sites. It meets the World Health Organization's (WHO) criteria for ?low bone mass? (T-score between -1.0 and -2.5). The patient's 10-year risk of hip fracture as calculated by FRAX exceeds the threshold where pharmacological therapy is recommended by the National Osteoporosis Foundation (NOF). However, all treatment decisions require clinical judgment and consideration of individual patient factors, including patient preferences, comorbidities, previous drug use, risk factors not captured in the FRAX model (e.g., frailty, falls, vitamin D deficiency, increased bone turnover, interval significant decline in bone density) and possible under or overestimation of fracture risk by FRAX. The patient should follow a healthful lifestyle (good nutrition with adequate calcium and vitamin D, and appropriate weight-bearing exercise). Follow-Up: Consider a repeat BMD and Vertebral Fracture Assessment (VFA) exam in 2 years or sooner if medically necessary, to reassess this patient's status. Reported by: NAYE ALDRIDGE M.D. on 04/19/2023 12:51:00 PM.
[2023-04-19 14:21] LABS: Add Manual Diff / Slide Review NO; Basophils Absolute Auto 0 /uL (0-100); Basophils Percent Auto 0.6 % (0-2); Eosinophils Absolute Auto 200 /uL (0-450); Eosinophils Percent Auto 3.8 % (2-4); Hematocrit 40.6 % (36-46); Hemoglobin 13.8 g/dL (12.0-16.0); Lymphocytes Absolute Auto 700 /uL (1100-4500); Lymphocytes Percent Auto 16.5 % (25-40); Mean Corpuscular HGB Conc 33.9 % (30-36); Mean Corpuscular Hemoglobin 32.2 PG (26-34); Mean Corpuscular Volume 94.9 fL (80-100); Monocytes Absolute Auto 400 /uL (0-900); Monocytes Percent Auto 9.7 % (3-14); Neutrophils Absolute Auto 3000 /uL (1500-7000); Neutrophils Percent Auto 69.4 % (50-75); Platelet Count 228 X10^3/uL (150-400); Red Blood Cell Count 4.27 X10^6/uL (4.0-5.2); White Blood Cell Count 4.3 X10^3/uL (4.5-11.0)
[2023-04-19 14:45] LABS: Alanine Aminotransferase 19 IU/L (<35); Albumin 4.1 g/dL (3.5-5.0); Albumin Globulin Ratio 1.3 (1.0-2.8); Alkaline Phosphatase 42 U/L (38-126); Aspartate Aminotransferase 29 IU/L (14-36); BUN Creatinine Ratio 27.8 (6-22); Bilirubin Total 0.5 mg/dL (0.2-1.3); Blood Urea Nitrogen 22 mg/dL (7-17); Calcium 8.2 mg/dL (8.4-10.2); Carbon Dioxide 32 mmol/L (22-32); Chloride 96 mmol/L (98-107); Cholesterol 171 mg/dL (140-199); Estimated Glomerular Filt Rate > 60 mL/min (>60); Globulin 3.1 g/dL (1.7-4.1); Glucose 96 mg/dL (80-110); HDL Cholesterol 77 mg/dL (40-60); HEMOLYSIS < 15 (0-50); LDL Cholesterol Calculated 83 mg/dL (<100); Potassium 4.6 mmol/L (3.4-5.1); Sodium 132 mmol/L (137-145); Total Protein 7.2 g/dL (6.3-8.2); Triglycerides 55 mg/dL (35-150)
[2023-04-19 17:36] LABS: Creatinine Urine Random 132.7 mg/dL
[2023-04-19 17:40] LABS: Microalbumi Creatinin Ratio Ur 21.8 ug/mg CR (<30); Microalbumin Urine Random 2.9 mg/dL (0-1.6)
== END ==
PROVIDERS: PCP Nurse Practitioner; Referring Provider Nurse Practitioner; Visit Provider Nurse Practitioner
DX: M85.851 Other specified disorders of bone density and structure, right thigh (principal); E03.9 Hypothyroidism, unspecified; F32.9 Major depressive disorder, single episode, unspecified; F41.1 Generalized anxiety disorder; I10 Essential (primary) hypertension; K21.9 Gastro-esophageal reflux disease without esophagitis; Z78.0 Asymptomatic menopausal state; Z90.710 Acquired absence of both cervix and uterus; Z79.899 Other long term (current) drug therapy
CPT/HCPCS: 36415; 77080; 77081; 80053; 80061; 82043; 82570; 84443; 85025

== ENCOUNTER → 2023-10-22 12:46 | Outpatient (CLI) | payer MEDICARE, OTHER, SELFPAY ==
[2023-10-22 15:01] LABS: BUN Creatinine Ratio 29.6 (6-22); Blood Urea Nitrogen 24 mg/dL (7-17); Calcium 8.9 mg/dL (8.4-10.2); Carbon Dioxide 31 mmol/L (22-32); Chloride 95 mmol/L (98-107); Estimated Glomerular Filt Rate > 60 mL/min (>60); Glucose 97 mg/dL (80-110); HEMOLYSIS < 15 (0-50); Potassium 4.4 mmol/L (3.4-5.1); Sodium 131 mmol/L (137-145)
== END ==
PROVIDERS: PCP Nurse Practitioner; Referring Provider Nurse Practitioner; Visit Provider Nurse Practitioner
DX: F33.2 Major depressive disorder, recurrent severe without psychotic features (principal); F41.1 Generalized anxiety disorder; M85.80 Other specified disorders of bone density and structure, unspecified site
CPT/HCPCS: 36415; 80048; 90833; 99214

== ENCOUNTER → 2024-02-26 13:27 | Outpatient (CLI) | payer MEDICARE, OTHER, SELFPAY ==
[2024-02-26 15:18] LABS: BUN Creatinine Ratio 37.8 (6-22); Blood Urea Nitrogen 31 mg/dL (7-17); Calcium 9.4 mg/dL (8.4-10.2); Carbon Dioxide 32 mmol/L (22-32); Chloride 98 mmol/L (98-107); Estimated Glomerular Filt Rate > 60 mL/min (>60); Glucose 89 mg/dL (80-110); HEMOLYSIS < 15 (0-50); Potassium 4.6 mmol/L (3.4-5.1); Sodium 134 mmol/L (137-145)
== END ==
PROVIDERS: PCP Nurse Practitioner; Referring Provider Internal Medicine Cardiovascular Disease; Visit Provider Internal Medicine Cardiovascular Disease
DX: I50.22 Chronic systolic (congestive) heart failure (principal)
CPT/HCPCS: 36415; 80048

== ENCOUNTER → 2024-04-11 13:35 | Outpatient (CLI) | payer MEDICARE, OTHER, SELFPAY ==
[2024-04-11 15:18] LABS: Hematocrit 39.6 % (36-46); Hemoglobin 13.1 g/dL (12.0-16.0); Mean Corpuscular Hemoglobin 31.9 PG (26-34); Mean Corpuscular Volume 96.5 fL (80-100); Platelet Count 204 X10^3/uL (150-400); Red Cell Distribution Width 14.1 % (11.6-14.8); White Blood Cell Count 4.8 X10^3/uL (4.5-11.0)
[2024-04-11 15:59] LABS: Alanine Aminotransferase 22 IU/L (<35); Albumin Globulin Ratio 1.4 (1.0-2.8); Alkaline Phosphatase 37 U/L (38-126); Aspartate Aminotransferase 29 IU/L (14-36); BUN Creatinine Ratio 29.2 (6-22); Bilirubin Total 0.6 mg/dL (0.2-1.3); Blood Urea Nitrogen 26 mg/dL (7-17); Calcium 8.6 mg/dL (8.4-10.2); Carbon Dioxide 28 mmol/L (22-32); Chloride 101 mmol/L (98-107); Cholesterol 184 mg/dL (140-199); Estimated Glomerular Filt Rate > 60 mL/min (>60); Globulin 2.8 g/dL (1.7-4.1); Glucose 85 mg/dL (80-110); HDL Cholesterol 77 mg/dL (40-60); HEMOLYSIS < 15 (0-50); LDL Cholesterol Calculated 94 mg/dL (<100); Potassium 4.4 mmol/L (3.4-5.1); Sodium 133 mmol/L (137-145); Total Protein 6.8 g/dL (6.3-8.2); Triglycerides 66 mg/dL (35-150)
[2024-04-11 16:28] LABS: Thyroid Stimulating Hormone 1.53 uIU/mL (0.47-4.68)
== END ==
PROVIDERS: PCP Nurse Practitioner; Referring Provider Nurse Practitioner; Visit Provider Nurse Practitioner
DX: R53.83 Other fatigue (principal); E03.9 Hypothyroidism, unspecified; F32.9 Major depressive disorder, single episode, unspecified; I10 Essential (primary) hypertension; F41.1 Generalized anxiety disorder; E78.5 Hyperlipidemia, unspecified; Z79.899 Other long term (current) drug therapy
CPT/HCPCS: 36415; 80053; 80061; 84443; 85027

== ENCOUNTER → 2024-04-15 10:22 | Outpatient (CLI) | payer MEDICARE, OTHER, SELFPAY ==
[2024-04-15 11:04] LABS: Creatinine Urine Random 93.93 mg/dL
[2024-04-15 11:09] LABS: Microalbumin Urine Random 0.8 mg/dL (0-1.6)
== END ==
PROVIDERS: PCP Nurse Practitioner; Referring Provider Nurse Practitioner; Visit Provider Nurse Practitioner
DX: R53.83 Other fatigue (principal); E03.9 Hypothyroidism, unspecified; F32.9 Major depressive disorder, single episode, unspecified; I10 Essential (primary) hypertension; F41.1 Generalized anxiety disorder; E78.5 Hyperlipidemia, unspecified; Z79.899 Other long term (current) drug therapy
CPT/HCPCS: 82043; 82570

== ENCOUNTER 2024-06-09 12:02 | Emergency (ER) | payer MEDICARE, OTHER, SELFPAY ==
[2024-06-09] VITALS (16 sets, daily range): BP systolic 142–183; BP diastolic 75–96; PULSE 73–90; RESP 18–35; TEMP 37; O2SAT 91–96; BMI 19.3
--- NOTE | 2024-06-09 12:35 | DI.CT.S_ITS ---
PROCEDURE: CT HEAD/BRAIN WO CON INDICATIONS: Positive BE-FAST TECHNIQUE: Noncontrast 4.5 mm thick angled axial sections acquired from the foramen magnum to the vertex, with coronal and sagittal reformats. For radiation dose reduction, the following was used: automated exposure control, adjustment of mA and/or kV according to patient size. COMPARISON: CT, CT HEAD/BRAIN WO CON, 07/18/2019, 18:46. [facility], CR, XR CHEST 1V, 06/09/2024, 12:54. FINDINGS: Image quality: Diagnostic. CSF spaces: Basal cisterns are patent. No extra-axial fluid collections. The ventricles are symmetric in size and shape. Brain: No intracranial bleeds or masses. There is cerebral volume loss for age, with resultant ventricular and sulcal prominence. There are periventricular and deep white matter chronic small vessel ischemic changes. There is intracranial internal carotid artery atherosclerosis. Skull and face: Calvarium and visualized facial bones appear intact, without suspicious lesions. Sinuses: Focal moderate mucosal thickening can be seen within the left maxillary sinus, with an air-fluid level seen. Paranasal sinuses otherwise appear clear. No abnormal fluid is seen within the mastoid air cells. IMPRESSION: No acute intracranial hemorrhage is seen. No acute intracranial pathology. If there is strong clinical suspicion for an acute stroke, please consider a brain MRI for further evaluation, as it is more sensitive (assuming that there is no contraindication to MRI). Dictated by: Kennedy Dowling M.D. on 06/09/2024 at 12:22 Approved by: Kennedy Dowling M.D. on 06/09/2024 at 12:24
--- NOTE | 2024-06-09 12:35 | DI.RAD.S_ITS ---
PROCEDURE: XR CHEST 1V INDICATIONS: Possible stroke TECHNIQUE: One view of the chest was acquired. COMPARISON: None. FINDINGS: Surgical changes and devices: None. Lungs and pleura: Lungs are clear. No pleural effusions or pneumothorax. Elevated right hemidiaphragm. Mediastinum: Mediastinal contours appear normal. Heart size is normal. Bones and chest wall: No suspicious bony lesions. Overlying soft tissues appear unremarkable. IMPRESSION: No acute cardiopulmonary abnormality is seen. Dictated by: Lyle Baldwin M.D. on 06/09/2024 at 13:35 Approved by: Lyle Baldwin M.D. on 06/09/2024 at 13:35
--- NOTE | 2024-06-09 12:47 | EKG_ITS ---
[facility] [address] [place] [address] Test Date: 2024-06-09 Pat Name: Sandra Saucedo Department: [facility] Room: Gender: Female Clinical Programmer: AMANDA : 1935 Requested By: Order Number: [id number] Reading MD: Jose Mortensen MD Measurements Intervals Roland Rate: 76 P: 74 WY: 146 QRS: -69 QRSD: 126 T: 79 QT: 422 QTc: 474 Interpretive Statements Normal sinus rhythm Left axis deviation Left bundle branch block NO SIGNIFICANT CHANGE FROM PRIOR TRACING Electronically Signed On 06-09-2024 16:44:59 PDT by Jose Mortensen MD
[2024-06-09 12:48] LABS: Hemoglobin 14.5 g/dL (12.0-16.0); Red Blood Cell Count 4.55 X10^6/uL (4.0-5.2); White Blood Cell Count 6.7 X10^3/uL (4.5-11.0)
[2024-06-09 12:49] LABS: Add Manual Diff / Slide Review NO; Basophils Absolute Auto 0 /uL (0-100); Basophils Percent Auto 0.7 % (0-2); Eosinophils Absolute Auto 100 /uL (0-450); Eosinophils Percent Auto 2.2 % (2-4); Hematocrit 43.7 % (36-46); Lymphocytes Absolute Auto 700 /uL (1100-4500); Lymphocytes Percent Auto 10.9 % (25-40); Mean Corpuscular HGB Conc 33.2 % (30-36); Mean Corpuscular Hemoglobin 31.9 PG (26-34); Mean Corpuscular Volume 96.1 fL (80-100); Monocytes Absolute Auto 600 /uL (0-900); Monocytes Percent Auto 8.4 % (3-14); Neutrophils Absolute Auto 5200 /uL (1500-7000); Neutrophils Percent Auto 77.8 % (50-75); Platelet Count 235 X10^3/uL (150-400); Red Cell Distribution Width 13.1 % (11.6-14.8)
--- NOTE | 2024-06-09 12:52 | PC.NURSE ---
Pt was started on lithium 1 week ago and has been getting more weak since then. Pt is alert/oriented
[2024-06-09 12:55] LABS: Prothrombin Time 11.8 SECONDS (9.4-12.5)
[2024-06-09 13:06] LABS: Alanine Aminotransferase 17 IU/L (<35); Albumin 4.4 g/dL (3.5-5.0); Albumin Globulin Ratio 1.3 (1.0-2.8); Alkaline Phosphatase 30 U/L (38-126); Aspartate Aminotransferase 30 IU/L (14-36); BUN Creatinine Ratio 27.3 (6-22); Bilirubin Total 0.9 mg/dL (0.2-1.3); Blood Urea Nitrogen 18 mg/dL (7-17); Calcium 9.2 mg/dL (8.4-10.2); Carbon Dioxide 27 mmol/L (22-32); Chloride 99 mmol/L (98-107); Creatine Kinase 49 U/L (30-135); Estimated Glomerular Filt Rate > 60 mL/min (>60); Globulin 3.3 g/dL (1.7-4.1); Glucose 100 mg/dL (80-110); HEMOLYSIS 26 (0-50); Magnesium 1.9 mg/dL (1.6-2.3); Potassium 4.3 mmol/L (3.4-5.1); Sodium 130 mmol/L (137-145); Total Protein 7.7 g/dL (6.3-8.2)
[2024-06-09 13:07] LABS: PTT Partial Thromboplastin Tim 35 SECONDS (25.1-36.5)
[2024-06-09 13:17] LABS: Troponin I < 0.012 ng/mL (0.01-0.034)
[2024-06-09 13:32] LABS: Lithium 0.5 mmol/L (0.6-1.2)
--- NOTE | 2024-06-09 14:08 | ED.GENADULT ---
HPI - General Adult General Chief complaint: Weakness Stated complaint: Can't Walk, Dehydration Time Seen by Provider: 06/09/24 13:51 Source: patient, family (Daughter), RN notes reviewed, old records reviewed and other Limitations: no limitations History of Present Illness HPI narrative: 89-year-old female history of depression recently started on lithium, prior history of alcohol abuse sober for several months, colon cancer treated with chemo and surgery, hypothyroidism, constipation, hypertension, sleep apnea presents with complaint of weakness, shakiness and concern for dehydration. Patient has had dinner last night but did not take much today. But has had decreased intake overall. Has been using protein shakes to supplement her diet. Denies fevers or chills, no headaches, no chest pain she noted a little bit of shortness of breath earlier she is also felt very dehydrated or dry, denies any nausea or vomiting. Little bit constipated did have a bowel movement several days ago sometimes alternates with diarrhea. Her physician recently gave her Linzess. She denies any bright red blood stools or melanotic stools. No abdominal back or flank pain. Notes urination has been a little bit tougher to start but no frequency retention or hematuria or dysuria appreciated. Patient states she generally is weak all over no lateralizing weakness. Daughter states she was not able to get her up into the bathroom. Patient does note that she started lithium a week ago because of her depressive symptoms has been pretty refractory to treatment also noted that they were tapering down her mirtazapine and Abilify and planning to stop 1 or both of these. Also restarted on Pristiq. Surgical history includes colon resection in 2005 for colon cancer with chemotherapy, hysterectomy and appendectomy. No known drug allergies. No tobacco, no alcohol since she quit several months ago, no recreational drugs. Shannon walters as her primary care physician. Dr. Alvarez is her psychiatrist. Related Data Home Medications Medication Instructions Recorded Confirmed vegetable laxitive PO PRN congestion 08/27/19 04/30/24 metoprolol tartrate 25 mg PO DAILY 06/15/22 04/30/24 acetaminophen 325 mg tablet 650 mg PO QID PRN fever or pain 08/28/22 04/30/24 sacubitril 24 mg-valsartan 26 mg 1 tab PO BID 08/28/22 04/30/24 tablet (Entresto) [id number] ac 400 tab PO 05/01/23 04/30/24 mcg-calcium carb 500 mg-vit K1 20 mcg tablet (Women's 50 Plus Multivitamin) sennosides 8.6 mg-docusate sodium See Rx Instructions PO BEDTIME 01/09/24 04/30/24 50 mg tablet (Senna with Docusate Sodium) Previous Rx's Medication Instructions Recorded denosumab 60 mg/mL subcutaneous 60 mg SUBCUT [id number] #1 mL 05/01/23 syringe (Prolia) hydrocortisone acetate 25 mg 25 mg IL BID #12 ea 05/01/23 rectal suppository (Anucort-HC) calcium carbonate (Calcium 600) 600 mg PO BID #180 tabs 06/06/23 omeprazole 20 mg capsule,delayed See Rx Instructions .Route 01/09/24 release .COMPLEX #180 caps celecoxib 200 mg capsule See Rx Instructions .Route 02/27/24 .COMPLEX #180 caps levothyroxine 75 mcg tablet 75 mcg PO DAILY #90 tabs 04/30/24 linaclotide 145 mcg capsule 145 mcg PO QAM #90 caps 04/30/24 (Linzess) spironolactone 25 mg tablet 25 mg PO DAILY #90 tabs 04/30/24 linaclotide 72 mcg capsule 72 mcg PO DAILY #30 caps 05/16/24 (Linzess) lactulose 10 gram/15 mL (15 mL) 10 g (15 mL) PO DAILY #1,500 mL 05/20/24 oral solution lithium carbonate 300 mg capsule 300 mg PO BEDTIME #30 caps 06/02/24 quetiapine 25 mg tablet 25 mg PO BEDTIME #30 tabs 06/02/24 cephalexin 500 mg capsule 500 mg PO Q8H 7 days #21 caps 06/09/24 Allergies Allergy/AdvReac Type Severity Reaction Status Date / Time No Known Drug Allergies Allergy Verified 06/09/24 12:29 Review of Systems Review of Systems ROS Unobtainable: All systems reviewed & are unremarkable except as noted in HPI and below Patient History Medical History Alcohol use disorder, moderate, in early remission, dependence IBS (irritable colon syndrome) Hyperlipidemia GERD (gastroesophageal reflux disease) Hiatal hernia Hypertension Acute exacerbation of chronic low back pain Cervical radiculopathy Cervical spondylosis Abnormal chest x-ray Shoulder pain Chicken pox Psoriasis Allergies Sleep apnea Restless leg syndrome Migraine Headache Chronic neck and back pain Osteopenia Carpal tunnel syndrome (~1990) Anemia Tinnitus Hypothyroidism Congestive heart failure Insomnia Adjustment disorder with depressed mood Alcoholism Depression Surgical History Anesthesia History of colon surgery (~2004) No pertinent past surgical history Family History Father Congestive heart failure Mother History of heart disease Brother No problems noted. Grandmother History of heart disease Grandfather Aneurysm Grandmother History of heart disease Family/Other No problems noted. Social History Smoking Status: Former smoker Smoking Status: Former smoker alcohol intake frequency: 0-2 drinks per day Substance Use Type: does not use Exam Narrative Exam Narrative: GEN: Elderly female, alert and oriented x 3, patient appears to be in mild distress. HEENT: Atraumatic, pupils are equal round reactive to light, extraocular movements are intact, nares are clear, there is no conjunctival pallor. Throat is clear without any exudates, erythema, tonsillar enlargement or uvular deviation, no facial droop HEART: Regular rate and rhythm without murmur, clicks, rubs. No carotid bruits, pulses are equal in upper and lower extremities LUNGS:Lungs clear to auscultation, no wheezes, rales, crackles, chest moves symmetrically ABD:bowel sounds normal, soft, non-tender, no guarding, rebound, rigidity, no masses noted, no hepatosplenomegaly :No CVA tenderness MSCL: Non-tender, patient has difficulty lifting her leg up off the bed but can hold each leg up off the bed once lifted for 10 seconds without issue. Has equal hat cone inspector bilaterally with push-pull. NEURO:CN 2-12 intact, sensation normal, reflexes 2/4 upper and lower extremities. No clonus. No tremor or atypical movements. SKIN: No rash, erythema or other skin changes Initial Vital Signs Initial Vital Signs: Vital Signs Temperature 98.6 F 06/09/24 12:25 Pulse Rate 82 06/09/24 12:25 Respiratory Rate 18 06/09/24 12:25 Blood Pressure 156/75 H 06/09/24 12:25 Pulse Oximetry 94 06/09/24 12:25 Oxygen Delivery Method Room Air 06/09/24 12:25 Course Orders Ordered: Discontinued Medications Cephalexin HCl (Cephalexin 250 Mg Capsule) 500 mg PO NOW ONE Stop: 06/09/24 16:57 Last Admin: 06/09/24 17:37 Dose: 500 mg Documented By: JOHNNIE Sodium Chloride (Normal Saline 0.9%) 1,000 mls @ 1,000 mls/hr IV BOLUS ONE Stop: 06/09/24 14:50 Last Infusion: 06/09/24 15:44 Dose: Infused Documented By: Admin: 06/09/24 14:10 Dose: 1,000 mls/hr Documented By: OLIVIA Ondansetron HCl (Ondansetron 4 Mg/2 Ml Inj) 4 mg IV NOW PRN PRN Reason: Nausea And Vomiting Ondansetron HCl (Ondansetron 4 Mg Odt) 4 mg SL NOW PRN PRN Reason: Nausea And Vomiting Vital Signs Vital signs: Vital Signs - 8 hr 06/09/24 12:25 06/09/24 13:10 06/09/24 13:12 Temperature 98.6 F Pulse Rate 82 77 Respiratory Rate 18 Blood Pressure 156/75 H 160/79 H Pulse Oximetry 94 93 Oxygen Delivery Method Room Air 06/09/24 13:12 06/09/24 13:30 06/09/24 13:30 Temperature Pulse Rate 75 73 Respiratory Rate 28 H 24 Blood Pressure 156/75 H Pulse Oximetry 96 93 Oxygen Delivery Method 06/09/24 14:00 06/09/24 14:00 06/09/24 14:30 Temperature Pulse Rate 75 74 Respiratory Rate 24 24 Blood Pressure 162/80 H Pulse Oximetry 94 94 Oxygen Delivery Method Room Air 06/09/24 14:30 06/09/24 15:00 06/09/24 15:00 Temperature Pulse Rate 82 Respiratory Rate 27 H Blood Pressure 180/81 H 174/88 H Pulse Oximetry 95 Oxygen Delivery Method 06/09/24 15:33 06/09/24 15:33 06/09/24 16:00 Temperature Pulse Rate 90 82 Respiratory Rate 26 H Blood Pressure 182/86 H Pulse Oximetry 91 Oxygen Delivery Method 06/09/24 16:00 06/09/24 16:30 06/09/24 16:30 Temperature Pulse Rate 76 Respiratory Rate 24 Blood Pressure 148/79 H 142/76 H Pulse Oximetry Oxygen Delivery Method 06/09/24 17:00 06/09/24 17:00 06/09/24 17:29 Temperature Pulse Rate 79 80 Respiratory Rate 25 H 24 Blood Pressure 183/89 H Pulse Oximetry 93 93 Oxygen Delivery Method 06/09/24 17:30 06/09/24 17:30 Temperature Pulse Rate 80 Respiratory Rate Blood Pressure 175/96 H Pulse Oximetry 93 Oxygen Delivery Method Medical Decision Making Lab Data 06/09/24 12:35 06/09/24 12:35 Labs: Lab Results 06/09/24 06/09/24 Range/Units 12:35 15:39 WBC 6.7 (4.5-11.0) X10^3/uL RBC 4.55 (4.0-5.2) X10^6/uL Hgb 14.5 (12.0-16.0) g/dL Hct 43.7 (36-46) % MCV 96.1 (80-100) fL MCH 31.9 (26-34) PG MCHC 33.2 (30-36) % RDW 13.1 (11.6-14.8) % Plt Count 235 (150-400) X10^3/uL Neut % (Auto) 77.8 H (50-75) % Lymph % (Auto) 10.9 L (25-40) % [place] % (Auto) 8.4 (3-14) % Eos % (Auto) 2.2 (2-4) % Baso % (Auto) 0.7 (0-2) % Neut # (Auto) 5200 (5450-0387) /uL Lymph # (Auto) 700 L (2963-9568) /uL [place] # (Auto) 600 (0-900) /uL Eos # (Auto) 100 (0-450) /uL Baso # (Auto) 0 (0-100) /uL PT 11.8 (9.4-12.5) SECONDS INR 1.0 (0.9-1.3) APTT 35 (25.1-36.5) SECONDS Sodium 130 L (137-145) mmol/L Potassium 4.3 (3.4-5.1) mmol/L Chloride 99 (98-107) mmol/L Carbon Dioxide 27 (22-32) mmol/L BUN 18 H (7-17) mg/dL Creatinine 0.66 (0.52-1.04) mg/dL Estimated GFR > 60 (>60) mL/min BUN/Creatinine Ratio 27.3 H (6-22) Glucose 100 (80-110) mg/dL Calcium 9.2 (8.4-10.2) mg/dL Magnesium 1.9 (1.6-2.3) mg/dL Total Bilirubin 0.9 (0.2-1.3) mg/dL AST 30 (14-36) IU/L ALT 17 (<35) IU/L Alkaline Phosphatase 30 L (38-126) U/L Total Creatine Kinase 49 (30-135) U/L Troponin I < 0.012 (0.01-0.034) ng/mL Total Protein 7.7 (6.3-8.2) g/dL Albumin 4.4 (3.5-5.0) g/dL Globulin 3.3 (1.7-4.1) g/dL Albumin/Globulin Ratio 1.3 (1.0-2.8) TSH 2.32 (0.47-4.68) uIU/mL Urine RBC None seen (0-5/HPF) Urine WBC 0-1/hpf (0-5/HPF) Ur Squamous Epith Cells 0-1 /hpf (0-5/HPF) Urine Bacteria Occasional (0-1) (None) Ur Culture Indicated? Cult not indicated Vol Urine Centrifuged 10ml (spun) Salicylates < 1.0 (<20) mg/dL U Opiates 300ng/mL cut Negative (Negative) Ur Oxycodone Screen Negative (Negative) Urine Methadone Screen Negative (Negative) Acetaminophen < 10 (10-30) ug/mL Ur Barbiturates Screen Negative (Negative) U Tricyclic Antidepress Negative (Negative) Ur Phencyclidine Scrn Negative (Negative) Ur Amphetamines Screen Negative (Negative) U Methamphetamines Scrn Negative (Negative) Ur MDMA Scrn (Ecstasy) Negative (Negative) U Benzodiazepines Scrn Negative (Negative) [place] 0.5 L (0.6-1.2) mmol/L Urine Cocaine Screen Negative (Negative) U Marijuana (THC) Screen Negative (Negative) Urine pH Normal (Normal) Urine Specific [place] Normal (Normal) Ethyl Alcohol < 10 ( - 10) mg/dL Ur Creatinine Normal (Normal) Urine Dip Bedside Urine Glucose Negative Bedside Urine Bilirubin - Negative Bedside Urine Ketone - Negative Urine Specific [place] 1.010 Bedside Urine Occult Blood - Negative Bedside Urine pH 7.5 Bedside Urine Protein - Negative Bedside Urine Urobilinogen - Negative Bedside Urine Nitrite - Negative Bedside Urine Leukocytes +/- 15 Esterase Point of care testing: Urine Dip Bedside Urine Glucose Negative Bedside Urine Bilirubin - Negative Bedside Urine Ketone - Negative Urine Specific [place] 1.010 Bedside Urine Occult Blood - Negative Bedside Urine pH 7.5 Bedside Urine Protein - Negative Bedside Urine Urobilinogen - Negative Bedside Urine Nitrite - Negative Bedside Urine Leukocytes +/- [address] scan - head: Radiologist's Impression: [address] [address] [address] Scan Report Signed Patient: Sandra Saucedo MR#: [id number] : 1935 Acct:[id number] Age/Sex: 89 / F Date of Service: 06/09/24 Loc: ED Accession Number: [id number] Procedure: CT head/brain wo con Ordering Provider: Trinity Robertson D.O. PROCEDURE: CT HEAD/BRAIN WO CON INDICATIONS: Positive BE-FAST TECHNIQUE: Noncontrast 4.5 mm thick angled axial sections acquired from the foramen magnum to the vertex, with coronal and sagittal reformats. For radiation dose reduction, the following was used: automated exposure control, adjustment of mA and/or kV according to patient size. COMPARISON: CT, CT HEAD/BRAIN WO CON, 07/18/2019, 18:46. [facility], CR, XR CHEST 1V, 06/09/2024, 12:54. FINDINGS: Image quality: Diagnostic. CSF spaces: Basal cisterns are patent. No extra-axial fluid collections. The ventricles are symmetric in size and shape. Brain: No intracranial bleeds or masses. There is cerebral volume loss for age, with resultant ventricular and sulcal prominence. There are periventricular and deep white matter chronic small vessel ischemic changes. There is intracranial internal carotid artery atherosclerosis. Skull and face: Calvarium and visualized facial bones appear intact, without suspicious lesions. Sinuses: Focal moderate mucosal thickening can be seen within the left maxillary sinus, with an air-fluid level seen. Paranasal sinuses otherwise appear clear. No abnormal fluid is seen within the mastoid air cells. IMPRESSION: No acute intracranial hemorrhage is seen. No acute intracranial pathology. If there is strong clinical suspicion for an acute stroke, please consider a brain MRI for further evaluation, as it is more sensitive (assuming that there is no contraindication to MRI). Dictated by: Kennedy Dowling M.D. on 06/09/2024 at 12:22 Approved by: Kennedy Dowling M.D. on 06/09/2024 at 12:24 Chest x-ray: Radiologist's Impression: Sandra Saucedo??She/Her/Hers??89??F??1935 ? Allergy/Adv: No Known Drug Allergies (More??) Close Head CT (Signed) Kennedy Dowling - 06/09/24 Chest X-Ray (Signed) Lyle Baldwin - 06/09/24 DEXA Result 04/19/23 Bone Densitometry (Signed) Ronn Junior - 04/19/23 Echocardiogram Ultrasound (Signed) Surya Rice - 03/16/22 Echocardiogram Ultrasound (Signed) Ru Read - 02/16/21 Abdomen Ultrasound (Signed) Lindsey Soler - 09/09/20 Abdomen X-Ray (Signed) Kelly Rose - 09/03/20 Cervical/Thoracic Injection (Signed) Oscar Spivey - 12/15/19 Cervical Spine MRI (Signed) Kennedy Dowling - 12/10/19 Lumbar Spine X-Ray (Signed) Karl Wheeler - 12/01/19 Radiology Report (Cancelled) Rajni Grimes - 10/14/19 Myocardial Perfusion Scan Nuc Med (Signed) Rajni Grimes - 10/14/19 Echocardiogram Ultrasound (Signed) Surya Rice - 10/01/19 Cervical Spine X-Ray (Signed) Lai Muñiz - 09/17/[address] (Signed) Brooks Hensley - 07/18/[address] [address] XRay Report Signed Patient: Sandra Saucedo MR#: [id number] : 1935 Acct:[id number] Age/Sex: 89 / F Date of Service: 06/09/24 Loc: ED Accession Number: [id number] Procedure: XR chest 1V Ordering Provider: Trinity Robertson D.O. PROCEDURE: XR CHEST 1V INDICATIONS: Possible stroke TECHNIQUE: One view of the chest was acquired. COMPARISON: None. FINDINGS: Surgical changes and devices: None. Lungs and pleura: Lungs are clear. No pleural effusions or pneumothorax. Elevated right hemidiaphragm. Mediastinum: Mediastinal contours appear normal. Heart size is normal. Bones and chest wall: No suspicious bony lesions. Overlying soft tissues appear unremarkable. IMPRESSION: No acute cardiopulmonary abnormality is seen. Dictated by: Lyle Baldwin M.D. on 06/09/2024 at 13:35 Approved by: Lyle Baldwin M.D. on 06/09/2024 at 13:35 ECG Data Attestation: I personally reviewed and interpreted this ECG as follows: Prior ECG tracings: not available for review Interpretation: Sinus rhythm rate of 76 [place] 146 QRS of 126 QTC of 474, left axis deviation, left bundle-branch block. No priors for comparison. MDM Narrative Medical decision making narrative: White count of 6.7 hemoglobin of 14 platelets of 235 predominance of neutrophils. Coags are negative, sodium is 130 has been as low as 131 in October 2023, potassium 4.3 chloride 99 CO2 is 27 with a BUN 18 creatinine 0.66. Glucose is 100 calcium is 9.2 Mag 1.9 with a bilirubin 0.9 AST ALT are appropriate alk-phos is 30, total CK is 49 troponin less than 0.012. TSH is 2.32. [place] level is 0.5, ETOH is negative, Tylenol and salicylate are negative. EKG shows sinus rhythm left axis deviation left bundle-branch block. Head CT shows no acute change Chest x-ray shows no acute change Point of care urine shows positive leukocyte esterase. Urine microscopy shows red cells 1 white cell 1 squamous occasional bacteria no culture. UDS is negative. Questionable UTI, patient is quite frail so after discussion of risks versus benefits with family patient elected to start oral antibiotic. Reviewed Dr. Alvarez discontinued air precipitous all tissue can you would very toxic 18, tapering mirtazapine Pristiq was stopped started on lithium and quetiapine. This combination of medications may have contributed patient's lithium level is normal no other clear changes consistent with infection patient's urine not particularly infectious but was sent for culture. Patient was able to walk fairly well plan to have sw meet with them to discuss home health care and provide walker. Patient with a little bit of assistance was able to get to the bedside commode, with walker was able to get to the wheelchair with minimal assistance. Patient is felt appropriate for discharge home geriatric social worker met to help set up home health care and we provided walker. Discussed return precautions. Discharge Plan Departure Patient Disposition: Home Clinical Impression: Weakness Activity Restrictions/Additional Instructions: Your urine showed a questionable infection you have been prescribed an antibiotic. A urine culture was sent these take 48-72 hours to result I would follow up with your physician if this was negative than the UTI would not be the source of your weakness. Prescription was sent to [facility] in [place]. You met with our geriatric social worker today help set up home health care. I do recommend use a walker to ambulate at home. Some of your weakness could be related to all of the medication changes that occurred recently, otherwise your workup was overall reassuring. Please return for worsening symptoms fevers, new chest pain or shortness of breath persistent vomiting, lightheadedness or passing out, increasing weakness, inability to ambulate safely or other new or concerning changes. Prescriptions: New cephalexin 500 mg capsule 500 mg PO Q8H 7 Days Qty: 21 0RF No Action lithium carbonate 300 mg capsule 300 mg PO BEDTIME Qty: 30 1RF quetiapine 25 mg tablet 25 mg PO BEDTIME Qty: 30 1RF calcium carbonate [Calcium 600] 600 mg calcium (1,500 mg) tablet 600 mg PO BID Qty: 180 3RF celecoxib 200 mg capsule See Rx Instructions .ROUTE .COMPLEX Qty: 180 3RF Dose Instruction: TAKE 1 CAPSULE(200 MG) BY MOUTH DAILY FOR PAIN Rx Instructions: TAKE 1 CAPSULE(200 MG) BY MOUTH twice DAILY FOR PAIN WITH OMEPRAZOLE Linzess 72 mcg capsule 72 mcg PO DAILY Qty: 30 0RF Rx Instructions: Reduce dose to 72 mcg once daily for development of diarrhea lactulose 10 gram/15 mL (15 mL) solution 10 g PO DAILY Qty: 1500 2RF vegetable laxitive PO PRN (Reason: congestion) metoprolol tartrate 25 mg PO DAILY acetaminophen 325 mg tablet 650 mg PO QID PRN (Reason: fever or pain) Entresto 24-26 mg tablet 1 tab PO BID Women's 50 Plus Multivitamin 400 mcg-500 mg calcium-20 mcg tablet PO hydrocortisone acetate [Anucort-HC] 25 mg suppository 25 mg IL BID Qty: 12 2RF Prolia 60 mg/mL syringe 60 mg SUBCUT [id number] Qty: 1 2RF Rx Instructions: Inject every 6 months SQ for osteoporosis sennosides-docusate sodium [Senna with Docusate Sodium] 8.6-50 mg tablet See Rx Instructions PO BEDTIME Rx Instructions: alternating 3 tabs with 2 tabs EOD prn BM omeprazole 20 mg capsule,delayed release(DR/EC) See Rx Instructions .ROUTE .COMPLEX Qty: 180 3RF Dose Instruction: TAKE 1 CAPSULE(20 MG) BY MOUTH DAILY FOR GERD AND COUGH Rx Instructions: TAKE 1 CAPSULE(20 MG) BY MOUTH BID FOR GERD AND COUGH Linzess 145 mcg capsule 145 mcg PO QAM Qty: 90 3RF Hold Instructions: Hold for development of diarrhea Rx Instructions: Take 1 cap daily for BMs. levothyroxine 75 mcg tablet 75 mcg PO DAILY Qty: 90 1RF spironolactone 25 mg tablet 25 mg PO DAILY Qty: 90 3RF Referrals: Shannon Walters ARNP [Primary Care Provider] - Stand Alone Forms: Patient Portal/API
[2024-06-09] MEDS: SODIUM CHLORIDE 0.9% 1,000 ML 1000 ML IV (14:10)
[2024-06-09 14:35] LABS: Acetaminophen < 10 ug/mL (10-30); Ethanol (ETOH) < 10 mg/dL; Salicylate < 1.0 mg/dL (<20)
[2024-06-09 15:19] LABS: Thyroid Stimulating Hormone 2.32 uIU/mL (0.47-4.68)
[2024-06-09 16:08] LABS: UR Morphine/Opiate cutoff 300 Negative (Negative); Ur Creatinine Normal (Normal); Ur Specific Gravity Normal (Normal); Urine Amphetamines Negative (Negative); Urine Barbiturates Negative (Negative); Urine Benzodiazepines Negative (Negative); Urine Cocaine Negative (Negative); Urine MDMA Negative (Negative); Urine Methadone Negative (Negative); Urine Methamphetamines Negative (Negative); Urine Phencyclidine Negative (Negative); Urine Tetrahydrocannabinol Negative (Negative); Urine pH Normal (Normal)
[2024-06-09 16:09] LABS: Urine Oxycodone Negative (Negative); Urine Tricyclic Antidepressant Negative (Negative)
[2024-06-09 16:12] LABS: Bacteria Urine Occasional (0-1); Culture Indicated Urine Cult Not Indicated; RBC Urine None Seen (0-5/HPF); Squamous Epithelial Cell Urine 0-1 /HPF (0-5/HPF); Urine Volume 10mL (spun); WBC Urine 0-1/HPF (0-5/HPF)
[2024-06-09] MEDS: cephALEXin 250 MG CAPSULE 500 MG PO (17:37)
--- NOTE | 2024-06-09 18:43 | CM.SWNOTE ---
Addendum entered by Niharika Zhao 06/11/24 13:39: [facility] calls back and confirms they can accept patient for HH services. JAY Duran Addendum entered by Niharika Zhao 06/11/24 11:42: ED TOOTH CUTTER CONTACT WHEEL Note Continued TOOTH CUTTER CONTACT WHEEL receives return call from [facility] stating that they need F2F order and that patient's disposition needs to be elaborated further than weakness in order to get Medicare coverage or patient will need PCP f/u and referral from PCP. TOOTH CUTTER CONTACT WHEEL requests addendum from ED provider to elaborate on causes of weakness. TOOTH CUTTER CONTACT WHEEL fills out F2F and scans signed copy into EMR. TOOTH CUTTER CONTACT WHEEL calls [facility] regarding referral. It is reported that they will review referral updates. JAY Duran Original Note: ED TOOTH CUTTER CONTACT WHEEL Assessment Note: Pt is a 89yo female, resident [facility] with her , presented to the ED with new onset of weakness, can't walk and was diagnosed with a UTI. Pt has a previous medical history of bipolar disorder, depression and [facility] for medications/counseling. TOOTH CUTTER CONTACT WHEEL was consulted for possible referral to home health, community resources to help support pt to discharge home. TOOTH CUTTER CONTACT WHEEL reviewed EMR and discussed pt with ED staff, it was revealed that there has been a change in pt's mentation since a recent change in lithium doses. TOOTH CUTTER CONTACT WHEEL entered room to meet with patient, introduced self and role. Present in the room is pt's daughter, Joann, who lives near to pt and , and has been supporting pt. Per pt's daughter, pt has been ambulatory prior to this presentation and independent at baseline, she mainly assists her who has beginning stages of dementia. Pt endorses anxiety around returning home and utilizing HH services, TOOTH CUTTER CONTACT WHEEL spoke at length with pt and pt's daughter, attempting to validate pt's emotions and utilizing strengths-based approach to empower pt with following through with care plans (antibiotics, home health). TOOTH CUTTER CONTACT WHEEL sent referral to agency of pt's daughter's preference, [facility]. TOOTH CUTTER CONTACT WHEEL sent referral to [facility] via [employer] form with note to contact pt's daughter, per pt's daughter request. TOOTH CUTTER CONTACT WHEEL provided [facility] pamphlet, [facility] contact info, Private caregiver list for [facility], [facility] Resources handbook for pt and pt's daughter to reference. TOOTH CUTTER CONTACT WHEEL educated daughter of utilizing non-emergency dispatch to request lift assist if necessary for weakness. Plan: Pt to discharge home with support of daughter overnight, pending [facility] referral/acceptance, follow up with [facility]. SERGEY Kwok
--- NOTE | 2024-06-09 19:01 | PC.NURSE ---
RN demonstrated to pt how to use walker. Pt then demonstrated back how to use walker. Pt ambulated 5 feet with walker without any problems.
== END 2024-06-09 19:00 | disposition home or self-care (01) ==
PROVIDERS: Emergency Provider Emergency Medicine; PCP Nurse Practitioner
DX: R53.1 Weakness (principal); E86.0 Dehydration
CPT/HCPCS: 36415; 70450; 71045; 80053; 80178; 80305; 80320; 80329; 81003; 81015; 82550; 83735; 84443; 84484; 85025; 85610; 85730; 87086; 93005; 93010; 96360; 96361; 99284; G0480

== ENCOUNTER 2024-07-09 15:25 | Emergency (ER) | payer MEDICARE, OTHER, SELFPAY ==
[2024-07-09] VITALS (13 sets, daily range): BP systolic 89–156; BP diastolic 51–71; PULSE 70–81; RESP 17–24; TEMP 36.8–37; O2SAT 95–98
--- NOTE | 2024-07-09 15:38 | DI.RAD.S_ITS ---
PROCEDURE: XR CHEST 1V INDICATIONS: altered mental status TECHNIQUE: One view of the chest was acquired. COMPARISON: [facility], CR, XR CHEST 1V, 06/09/2024, 12:54. FINDINGS: Surgical changes and devices: None. Lungs and pleura: Lungs are clear. Elevation of the right hemidiaphragm. No pleural effusions or pneumothorax. Mediastinum: Mediastinal contours appear normal. Heart size is normal. Bones and chest wall: No suspicious bony lesions. Overlying soft tissues appear unremarkable. IMPRESSION: No acute cardiopulmonary abnormality is seen. Dictated by: Pito Ibrahim M.D. on 07/09/2024 at 17:18 Approved by: Pito Ibrahim M.D. on 07/09/2024 at 17:19
--- NOTE | 2024-07-09 15:46 | EKG_ITS ---
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
[2024-07-09 15:50] LABS: Add Manual Diff / Slide Review NO; Basophils Absolute Auto 0 /uL (0-100); Basophils Percent Auto 0.7 % (0-2); Eosinophils Absolute Auto 100 /uL (0-450); Eosinophils Percent Auto 2.5 % (2-4); Hematocrit 42.3 % (36-46); Hemoglobin 14.1 g/dL (12.0-16.0); Lymphocytes Absolute Auto 800 /uL (1100-4500); Lymphocytes Percent Auto 14.5 % (25-40); Mean Corpuscular HGB Conc 33.4 % (30-36); Mean Corpuscular Volume 95.9 fL (80-100); Monocytes Absolute Auto 600 /uL (0-900); Monocytes Percent Auto 11.3 % (3-14); Neutrophils Absolute Auto 4100 /uL (1500-7000); Platelet Count 228 X10^3/uL (150-400); Red Blood Cell Count 4.41 X10^6/uL (4.0-5.2); Red Cell Distribution Width 12.9 % (11.6-14.8); White Blood Cell Count 5.7 X10^3/uL (4.5-11.0)
[2024-07-09 16:10] LABS: Creatine Kinase 55 U/L (30-135)
[2024-07-09 16:12] LABS: Alanine Aminotransferase 21 IU/L (<35); Albumin 4.4 g/dL (3.5-5.0); Albumin Globulin Ratio 1.4 (1.0-2.8); Alkaline Phosphatase 38 U/L (38-126); Aspartate Aminotransferase 35 IU/L (14-36); BUN Creatinine Ratio 26.5 (6-22); Bilirubin Total 0.6 mg/dL (0.2-1.3); Blood Urea Nitrogen 31 mg/dL (7-17); Calcium 9.1 mg/dL (8.4-10.2); Carbon Dioxide 28 mmol/L (22-32); Chloride 100 mmol/L (98-107); Estimated Glomerular Filt Rate 45 mL/min (>60); Globulin 3.2 g/dL (1.7-4.1); Glucose 115 mg/dL (80-110); HEMOLYSIS 36 (0-50); Lactate (Lactic Acid) 1.9 mmol/L (0.7-2.1); Potassium 4.4 mmol/L (3.4-5.1); Sodium 134 mmol/L (137-145); Total Protein 7.6 g/dL (6.3-8.2)
[2024-07-09 16:23] LABS: NT-proBNP (BNP-Adult 18+) 385 pg/mL (<450); Troponin I < 0.012 ng/mL (0.01-0.034)
--- NOTE | 2024-07-09 16:46 | ED.WEAKNESS ---
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 Denies shortness of breath or cough. Denies fevers chills. Denies painful urination or frequency of urination. Has had prior urinary tract infections but this feels somewhat different. Denies abdominal discomfort. No recent nausea vomiting or diarrhea. No black or red stools. No changes in medications. No headache, neck pain, photophobia symptoms. Weakness to face arm or leg on single side. Related Data Home Medications Medication Instructions Recorded Confirmed vegetable laxitive PO PRN congestion 08/27/19 07/09/24 acetaminophen 325 mg tablet 650 mg PO QID PRN fever or pain 08/28/22 07/09/24 sacubitril 24 mg-valsartan 26 mg 1 tab PO BID 08/28/22 07/09/24 tablet (Entresto) hewblpqi-hwp-awrfj ac 400 tab PO 05/01/23 07/09/24 mcg-calcium carb 500 mg-vit K1 20 mcg tablet (Women's 50 Plus Multivitamin) sennosides 8.6 mg-docusate sodium See Rx Instructions PO BEDTIME 01/09/24 07/09/24 50 mg tablet (Senna with Docusate Sodium) Previous Rx's Medication Instructions Recorded denosumab 60 mg/mL subcutaneous 60 mg SUBCUT [id number] #1 mL 05/01/23 syringe (Prolia) hydrocortisone acetate 25 mg 25 mg [place] BID #12 ea 05/01/23 rectal suppository (Anucort-HC) calcium carbonate (Calcium 600) 600 mg PO BID #180 tabs 06/06/23 omeprazole 20 mg capsule,delayed See Rx Instructions .Route 01/09/24 release .COMPLEX #180 caps celecoxib 200 mg capsule See Rx Instructions .Route 02/27/24 .COMPLEX #180 caps levothyroxine 75 mcg tablet 75 mcg PO DAILY #90 tabs 04/30/24 lactulose 10 gram/15 mL (15 mL) 10 g (15 mL) PO DAILY #1,500 mL 05/20/24 oral solution quetiapine 25 mg tablet 25 mg PO BEDTIME #30 tabs 06/02/24 linaclotide 72 mcg capsule 72 mcg PO DAILY #90 caps 06/16/24 (Linzess) Allergies Allergy/AdvReac Type Severity Reaction Status Date / Time No Known Drug Allergies Allergy Verified 07/09/24 15:38 Review of Systems Review of Systems Narrative: see HPI Patient History Medical History (Updated 07/09/24 @ 18:31 by Michael Joya MD) Hypotension Alcohol use disorder, moderate, in early remission, dependence IBS (irritable colon syndrome) Hyperlipidemia GERD (gastroesophageal reflux disease) Hiatal hernia Hypertension Acute exacerbation of chronic low back pain Cervical radiculopathy Cervical spondylosis Abnormal chest x-ray Shoulder pain Chicken pox Psoriasis Allergies Sleep apnea Restless leg syndrome Migraine Headache Chronic neck and back pain Osteopenia Carpal tunnel syndrome (~1990) Anemia Tinnitus Hypothyroidism Congestive heart failure Insomnia Adjustment disorder with depressed mood Alcoholism Depression Surgical History Anesthesia History of colon surgery (~2004) No pertinent past surgical history Family History Father Congestive heart failure Mother History of heart disease Brother No problems noted. Grandmother History of heart disease Grandfather Aneurysm Grandmother History of heart disease Family/Other No problems noted. Social History Smoking Status: Former smoker Smoking Status: Former smoker alcohol intake frequency: 0-2 drinks per day Substance Use Type: does not use Exam Narrative Exam Narrative: GENERAL: Well-developed patient, in mild distress. HEAD: Atraumatic. Normocephalic. EYES: Pupils equal round and reactive. Extraocular motions intact. No scleral icterus. No injection or drainage. ENT: Nose without bleeding, purulent drainage. Throat without erythema, tonsillar hypertrophy or exudate. Airway patent. NECK: Trachea midline. Non tender CARDIOVASCULAR: Regular rate and rhythm without murmurs, gallops, or rubs. RESPIRATORY: Clear to auscultation. Breath sounds equal bilaterally. No wheezes, rales, or rhonchi. GASTROINTESTINAL: Abdomen soft, non-tender, nondistended. EXTREMITIES: No edema or joint tenderness. BACK: Nontender without deformity or crepitance. No flank tenderness. NEURO: AOx3. Cranial nerve exam unremarkable. Motor 5/5 upper extremities and lower extremities. SKIN: No rash or erythema of visible areas Initial Vital Signs Initial Vital Signs: Vital Signs Temperature 98.3 F 07/09/24 15:33 Pulse Rate 81 07/09/24 15:33 Respiratory Rate 17 07/09/24 15:33 Blood Pressure 106/58 L 07/09/24 15:33 Pulse Oximetry 97 07/09/24 15:33 Oxygen Delivery Method Room Air 07/09/24 15:33 Course Orders Ordered: Discontinued Medications Sodium Chloride (Normal Saline 0.9%) 1,000 mls @ 1,000 mls/hr IV BOLUS ONE Stop: 07/09/24 18:28 Last Infusion: 07/09/24 19:51 Dose: Infused Documented By: Admin: 07/09/24 18:21 Dose: 1,000 mls/hr Documented By: SANKET Vital Signs Vital signs: Vital Signs - 8 hr 07/09/24 15:33 07/09/24 15:35 07/09/24 16:00 Temperature 98.3 F Pulse Rate 81 79 Respiratory Rate 17 23 Blood Pressure 106/58 L 91/51 L Pulse Oximetry 97 95 Oxygen Delivery Method Room Air 07/09/24 16:00 07/09/24 16:30 07/09/24 16:30 Temperature Pulse Rate 75 74 Respiratory Rate 24 21 Blood Pressure 89/54 L Pulse Oximetry 95 95 Oxygen Delivery Method 07/09/24 17:00 07/09/24 17:00 07/09/24 17:26 Temperature Pulse Rate 72 Respiratory Rate 20 Blood Pressure 111/56 L 103/53 L Pulse Oximetry 95 Oxygen Delivery Method 07/09/24 17:26 07/09/24 17:30 07/09/24 17:30 Temperature Pulse Rate 75 75 Respiratory Rate 22 23 Blood Pressure 111/55 L Pulse Oximetry 97 98 Oxygen Delivery Method 07/09/24 18:00 07/09/24 18:00 Temperature Pulse Rate 72 Respiratory Rate 19 Blood Pressure 108/58 L Pulse Oximetry 95 Oxygen Delivery Method MDM - Weakness Lab Data Attestation: I reviewed the patient's lab results. 07/09/24 15:40 07/09/24 15:40 Labs: Lab Results 07/09/24 07/09/24 Range/Units 15:40 18:42 WBC 5.7 (4.5-11.0) X10^3/uL RBC 4.41 (4.0-5.2) X10^6/uL Hgb 14.1 (12.0-16.0) g/dL Hct 42.3 (36-46) % MCV 95.9 (80-100) fL MCH 32.0 (26-34) PG MCHC 33.4 (30-36) % RDW 12.9 (11.6-14.8) % Plt Count 228 (150-400) X10^3/uL Neut % (Auto) 71.0 (50-75) % Lymph % (Auto) 14.5 L (25-40) % [place] % (Auto) 11.3 (3-14) % Eos % (Auto) 2.5 (2-4) % Baso % (Auto) 0.7 (0-2) % Neut # (Auto) 4100 (2497-6827) /uL Lymph # (Auto) 800 L (5621-9073) /uL [place] # (Auto) 600 (0-900) /uL Eos # (Auto) 100 (0-450) /uL Baso # (Auto) 0 (0-100) /uL Sodium 134 L (137-145) mmol/L Potassium 4.4 (3.4-5.1) mmol/L Chloride 100 (98-107) mmol/L Carbon Dioxide 28 (22-32) mmol/L BUN 31 H (7-17) mg/dL Creatinine 1.17 H (0.52-1.04) mg/dL Estimated GFR 45 L (>60) mL/min BUN/Creatinine Ratio 26.5 H (6-22) Glucose 115 H (80-110) mg/dL Lactate 1.9 (0.7-2.1) mmol/L Calcium 9.1 (8.4-10.2) mg/dL Total Bilirubin 0.6 (0.2-1.3) mg/dL AST 35 (14-36) IU/L ALT 21 (<35) IU/L Alkaline Phosphatase 38 (38-126) U/L Total Creatine Kinase 55 (30-135) U/L Troponin I < 0.012 < 0.012 (0.01-0.034) ng/mL NT-Pro-B Natriuret Pep 385 (<450) pg/mL Total Protein 7.6 (6.3-8.2) g/dL Albumin 4.4 (3.5-5.0) g/dL Globulin 3.2 (1.7-4.1) g/dL Albumin/Globulin Ratio 1.4 (1.0-2.8) Imaging Data CT scan - head: Radiologist Impression: [address] [address] [address] Scan Report Signed Patient: Sandra Saucedo MR#: [id number] : 1935 Acct:[id number] Age/Sex: 89 / F Date of Service: 07/09/24 Loc: ED Accession Number: [id number] Procedure: CT head/brain wo con Ordering Provider: Michael Joya MD PROCEDURE: CT HEAD/BRAIN WO CON INDICATIONS: gen weakness TECHNIQUE: Noncontrast 4.5 mm thick angled axial sections acquired from the foramen magnum to the vertex, with coronal and sagittal reformats. For radiation dose reduction, the following was used: automated exposure control, adjustment of mA and/or kV according to patient size. COMPARISON: [facility], CT, CT HEAD/BRAIN WO CON, 06/09/2024, 12:56. FINDINGS: Image quality: Diagnostic. CSF spaces: Basal cisterns are patent. No extra-axial fluid collections. The ventricles are symmetric in size and shape. Brain: No intracranial bleeds or masses. There is cerebral volume loss for age, with resultant ventricular and sulcal prominence. There are periventricular and deep white matter chronic small vessel ischemic changes. There is intracranial internal carotid artery atherosclerosis. Skull and face: Calvarium and visualized facial bones appear intact, without suspicious lesions. Bilateral lens replacements. Sinuses: Visualized sinuses and mastoids are clear. IMPRESSION: No acute intracranial pathology. Dictated by: Pito Ibrahim M.D. on 07/09/2024 at 17:54 Approved by: Pito Ibrahim M.D. on 07/09/2024 at 17:54 Chest x-ray: Radiologist Impression: Close Head CT (Signed) Pito Ibrahim - 07/09/24 Chest X-Ray (Signed) Pito Ibrahim - 07/09/24 Launch?Image [address] [address] XRay Report Signed Patient: Sandra Saucedo MR#: [id number] : 1935 Acct:[id number] Age/Sex: 89 / F Date of Service: 07/09/24 Loc: ED Accession Number: [id number] Procedure: XR chest 1V Ordering Provider: Michael Joya MD PROCEDURE: XR CHEST 1V INDICATIONS: altered mental status TECHNIQUE: One view of the chest was acquired. COMPARISON: [facility], , XR CHEST 1V, 06/09/2024, 12:54. FINDINGS: Surgical changes and devices: None. Lungs and pleura: Lungs are clear. Elevation of the right hemidiaphragm. No pleural effusions or pneumothorax. Mediastinum: Mediastinal contours appear normal. Heart size is normal. Bones and chest wall: No suspicious bony lesions. Overlying soft tissues appear unremarkable. IMPRESSION: No acute cardiopulmonary abnormality is seen. Dictated by: Pito Ibrahim M.D. on 07/09/2024 at 17:18 Approved by: Pito Ibrahim M.D. on 07/09/2024 at 17:19 ECG Data Attestation: I personally reviewed and interpreted this ECG as follows: Interpretation: Indeterminate rhythm, possibly accelerated junctional rhythm, ventricular response rate 77. No obvious ST segment elevation changes. Regular RR intervals, doubt AFib. QRS 114, QTC 463. [facility] Narrative Medical decision making narrative: 89-year-old female with generalized weakness, thinks that she might be somewhat dehydrated, does have dry mucous membranes on exam, afebrile, sirs screen negative. Nonfocal neuro exam. Labs sent, EKG without obvious ischemic changes but indeterminate regular rhythm. Troponin negative. Electrolytes unremarkable. Chest x-ray negative. CT head noncontrast no acute changes. Patient weakness symptoms improved after IV fluids. Initial and interval troponin negative. Discharged home. Encouraged to take oral fluids well. Follow up PCP advised later this week. Return precautions discussed Discharge Plan Departure Patient Disposition: Home Clinical Impression: Generalized weakness, Dehydration Activity Restrictions/Additional Instructions: Generalized weakness. CT scan head showed no acute changes. EKG and blood testing not suggestive of heart attack at this time. Dry mucous membranes, possible dehydration. IV fluids given. Encouraged to take continued adequate oral intake to stay hydrated. Recheck symptoms with your regular doctor in the next couple of days. Return to this/nearest emergency department for any change worsening symptoms or any concerns prior Prescriptions: No Action quetiapine 25 mg tablet 25 mg PO BEDTIME Qty: 30 1RF calcium carbonate [Calcium 600] 600 mg calcium (1,500 mg) tablet 600 mg PO BID Qty: 180 3RF celecoxib 200 mg capsule See Rx Instructions .ROUTE .COMPLEX Qty: 180 3RF Dose Instruction: TAKE 1 CAPSULE(200 MG) BY MOUTH DAILY FOR PAIN Rx Instructions: TAKE 1 CAPSULE(200 MG) BY MOUTH twice DAILY FOR PAIN WITH OMEPRAZOLE lactulose 10 gram/15 mL (15 mL) solution 10 g PO DAILY Qty: 1500 2RF Linzess 72 mcg capsule 72 mcg PO DAILY Qty: 90 3RF vegetable laxitive PO PRN (Reason: congestion) acetaminophen 325 mg tablet 650 mg PO QID PRN (Reason: fever or pain) Entresto 24-26 mg tablet 1 tab PO BID Women's 50 Plus Multivitamin 400 mcg-500 mg calcium-20 mcg tablet PO hydrocortisone acetate [Anucort-HC] 25 mg suppository 25 mg NJ BID Qty: 12 2RF Prolia 60 mg/mL syringe 60 mg SUBCUT [id number] Qty: 1 2RF Rx Instructions: Inject every 6 months SQ for osteoporosis sennosides-docusate sodium [Senna with Docusate Sodium] 8.6-50 mg tablet See Rx Instructions PO BEDTIME Rx Instructions: alternating 3 tabs with 2 tabs EOD prn BM omeprazole 20 mg capsule,delayed release(DR/EC) See Rx Instructions .ROUTE .COMPLEX Qty: 180 3RF Dose Instruction: TAKE 1 CAPSULE(20 MG) BY MOUTH DAILY FOR GERD AND COUGH Rx Instructions: TAKE 1 CAPSULE(20 MG) BY MOUTH BID FOR GERD AND COUGH levothyroxine 75 mcg tablet 75 mcg PO DAILY Qty: 90 1RF Referrals: Shannon Walters ARNP [Primary Care Provider] - Stand Alone Forms: Patient Portal/API
--- NOTE | 2024-07-09 17:06 | DI.CT.S_ITS ---
PROCEDURE: CT HEAD/BRAIN WO CON INDICATIONS: gen weakness TECHNIQUE: Noncontrast 4.5 mm thick angled axial sections acquired from the foramen magnum to the vertex, with coronal and sagittal reformats. For radiation dose reduction, the following was used: automated exposure control, adjustment of mA and/or kV according to patient size. COMPARISON: [facility], CT, CT HEAD/BRAIN WO CON, 06/09/2024, 12:56. FINDINGS: Image quality: Diagnostic. CSF spaces: Basal cisterns are patent. No extra-axial fluid collections. The ventricles are symmetric in size and shape. Brain: No intracranial bleeds or masses. There is cerebral volume loss for age, with resultant ventricular and sulcal prominence. There are periventricular and deep white matter chronic small vessel ischemic changes. There is intracranial internal carotid artery atherosclerosis. Skull and face: Calvarium and visualized facial bones appear intact, without suspicious lesions. Bilateral lens replacements. Sinuses: Visualized sinuses and mastoids are clear. IMPRESSION: No acute intracranial pathology. Dictated by: Pito Ibrahim M.D. on 07/09/2024 at 17:54 Approved by: Pito Ibrahim M.D. on 07/09/2024 at 17:54
[2024-07-09] MEDS: SODIUM CHLORIDE 0.9% 1,000 ML 1000 ML IV (18:21)
[2024-07-09 19:29] LABS: Troponin I < 0.012 ng/mL (0.01-0.034)
== END 2024-07-09 19:58 | disposition home or self-care (01) ==
PROVIDERS: Emergency Provider Emergency Medicine; PCP Nurse Practitioner
DX: R53.1 Weakness (principal); E86.0 Dehydration; R41.82 Altered mental status, unspecified
CPT/HCPCS: 36415; 70450; 71045; 80053; 82550; 83605; 83880; 84484; 85025; 93005; 93010; 96360; 99284

== ENCOUNTER → 2024-08-21 08:44 | Outpatient (CLI) | payer MEDICARE, OTHER, SELFPAY ==
--- NOTE | 2024-08-22 18:19 | DI.NM.S_ITS ---
DATE OF SERVICE: 08/21/2024 NUCLEAR CARDIOLOGY MYOCARDIAL PERFUSION STUDY PROCEDURE: Pharmacologic vasodilator stress and rest myocardial perfusion study with gating to assess ejection fraction and regional wall motion. ORDERING PROVIDER: Rajni Grimes MD INDICATIONS: The patient is an 89-year-old female with known left bundle-branch block and reduced ejection fraction with recent weakness. PHARMACOLOGIC STRESS: Per protocol, 0.4 mg of regadenoson was infused with a normal hemodynamic response. She had no chest discomfort or other anginal symptoms. Her resting ECG shows sinus rhythm with a LBBB that precludes ST-segment analysis but there are no significant ST-segment shifts or arrhythmias with stress. Per protocol, she was injected with 26.0 mCi of technetium-99m Myoview and was imaged 15 minutes later using a gated SPECT acquisition protocol. The day prior while at rest, she had been injected with 25.3 mCi of technetium-99m Myoview and was imaged 15 minutes later, again using a gated SPECT acquisition protocol. FINDINGS: RAW DATA: There is good myocardial tracer uptake, particularly on the stress images but somewhat diminished myocardial tracer uptake on the resting images. The lung/heart ratio is normal at 0.24 with a normal TID ratio of 0.85. QUANTITATED GATED SPECT: Post-stress ejection fraction is estimated to be 80% without any focal wall motion abnormality. The resting ejection fraction is estimated at 64% with a normal resting end-diastolic volume of 80 mL. MYOCARDIAL PERFUSION SCAN: Post-stress supine images show a normal myocardial perfusion pattern without any perfusion defects, supported by normal perfusion imaging in the prone position. The resting images are somewhat compromised by subdiaphragmatic tracer activity, but there are no obvious areas of improvement. IMPRESSION: 1. Normal myocardial perfusion study. 2. No evidence of myocardial ischemia or previous myocardial infarction. 3. Normal left ventricular size and systolic function without any focal wall motion abnormality. 4. No angina with pharmacologic vasodilator stress. The presence of a left bundle-branch block precludes ST-segment analysis. 5. Compared with her previous myocardial perfusion study from 10/13/2019, the previous perfusion defect is no longer evident. Left ventricular size and function remain similar. Sandra Saucedo - RS/fn/CO doc#: [id number]/job#: [id number] dd: 08/22/2024 16:50:00 dt: 08/22/2024 17:57:00 DICTATING MD/COPIES TO: Refugio Dooley MD; Rajni Grimes MD COPIES MNE: JUNE;
== END ==
LOC: NUCM 08:45
PROVIDERS: PCP Nurse Practitioner; Referring Provider Internal Medicine Cardiovascular Disease; Visit Provider Internal Medicine Cardiovascular Disease
DX: I44.7 Left bundle-branch block, unspecified (principal); I35.1 Nonrheumatic aortic (valve) insufficiency; I50.22 Chronic systolic (congestive) heart failure; R53.1 Weakness
CPT/HCPCS: 78452; 93017; A9502; J2785

== ENCOUNTER → 2024-08-26 15:29 | Outpatient (CLI) | payer MEDICARE, OTHER, SELFPAY ==
--- NOTE | 2024-08-26 15:32 | DI.RAD.S_ITS ---
PROCEDURE: XR CHEST 2V INDICATIONS: SOB, crackles on lung exam TECHNIQUE: 2 views of the chest were acquired. COMPARISON: [facility], CR, XR CHEST 1V, 07/09/2024, 15:50. [facility], CR, XR CHEST 1V, 06/09/2024, 12:54. FINDINGS: Surgical changes and devices: None. Lungs and pleura: Elevation the right hemidiaphragm. Basilar predominant reticulation. Mediastinum: Mediastinal contours are normal. Heart size is normal. Small hiatal hernia. Bones and chest wall: No suspicious bony abnormalities. Soft tissues appear unremarkable. IMPRESSION: Basilar predominant reticulation, suggestive of interstitial lung disease or senescent fibrosis. Consider chest CT for complete characterization. Dictated by: Lyle Baldwin M.D. on 08/26/2024 at 17:34 Approved by: Lyle Baldwin M.D. on 08/26/2024 at 17:35
[2024-08-26 17:04] LABS: NT-proBNP (BNP-Adult 18+) 627 pg/mL (<450)
== END ==
PROVIDERS: PCP Family Medicine; Referring Provider Family Medicine; Visit Provider Family Medicine
DX: I50.9 Heart failure, unspecified (principal); F31.4 Bipolar disorder, current episode depressed, severe, without psychotic features; F41.1 Generalized anxiety disorder
CPT/HCPCS: 36415; 71046; 83880; 99215

== ENCOUNTER → 2024-09-08 14:54 | Outpatient (CLI) | payer MEDICARE, OTHER, SELFPAY ==
[2024-09-08 17:15] LABS: BUN Creatinine Ratio 30.1 (6-22); Blood Urea Nitrogen 28 mg/dL (7-17); Calcium 9.2 mg/dL (8.4-10.2); Carbon Dioxide 32 mmol/L (22-32); Chloride 97 mmol/L (98-107); Estimated Glomerular Filt Rate 59 mL/min (>60); Glucose 99 mg/dL (80-110); HEMOLYSIS < 15 (0-50); Potassium 4.6 mmol/L (3.4-5.1); Sodium 135 mmol/L (137-145)
[2024-09-08 17:18] LABS: NT-proBNP (BNP-Adult 18+) 307 pg/mL (<450)
== END ==
PROVIDERS: PCP Family Medicine; Referring Provider Internal Medicine Cardiovascular Disease; Visit Provider Internal Medicine Cardiovascular Disease
DX: I50.22 Chronic systolic (congestive) heart failure (principal)
CPT/HCPCS: 36415; 80048; 83880

== ENCOUNTER → 2024-09-17 08:02 | Outpatient (CLI) | payer MEDICARE, OTHER, SELFPAY ==
--- NOTE | 2024-09-17 08:04 | DI.ECHO.S_ITS ---
[place] [facility]---------+ [facility] : : [address] : [address] : : [id number] : : Phone: [phone] Echocardiogram Report + + :Name: KEVIN MOISE Study Date: 09/17/2024 Height: 63 in : :[facility] ReadingLocation: Weight: 101 lb : : Gender: Female BSA: 1.4 m2 : :: 1935 Age: 89 yrs BP: 103/60 mmHg: :Reason For Study: WEAKNESS, SYSTOLIC HEART FAILURE, LBB : :Ordering Physician: BECKY, : :AYDEE Performed By: Katie Beatty : :Referring: AYDEE PENA : + + Interpretation Summary The ejection fraction is estimated to be 60-65%. Diastolic function could not be accurately assessed due to contradictory data. The right ventricle is mildly dilated. The right ventricular systolic function is normal. There is mild mitral regurgitation. There is mild aortic regurgitation. There is moderate tricuspid regurgitation. The right ventricular systolic pressure is estimated to be at least 34 mmHg based on an estimated right atrial pressure of 3 mm Hg. Compared to the prior study 03/16/2022, the LV is more dynamic and the TR has increased. Procedure: A two-dimensional transthoracic echocardiogram with color flow and Doppler was performed. The study quality was technically adequate. Comparison is made with the echocardiogram of 03/16/2022. The heart rate ranged between 56-72 bpm during the study. Left Ventricle: The left ventricular cavity is small. There is normal left ventricular wall thickness. The ejection fraction is estimated to be 60-65%. Septal motion is consistent with conduction abnormality. Diastolic function could not be accurately assessed due to contradictory data. Right Ventricle: The right ventricle is mildly dilated. The right ventricular systolic function is normal. Atria: The left atrial size is normal. Right atrial size is normal. There is no Doppler evidence for an interatrial shunt. Mitral Valve: The mitral valve leaflets appear moderately thickened, but open well. The mitral valve leaflets are mildly calcified. Calcified mitral apparatus. There is mild mitral regurgitation. Aortic Valve: The aortic valve is mildly calcified. The aortic valve is trileaflet. The aortic valve opens well. There is no aortic valve stenosis. There is mild aortic regurgitation. Tricuspid Valve: The tricuspid valve is normal in structure and function. There is moderate tricuspid regurgitation. The right ventricular systolic pressure is estimated to be at least 34 mmHg based on an estimated right atrial pressure of 3 mm Hg. Pulmonic Valve: The pulmonic valve leaflets are thin and pliable; valve motion is normal. There is mild pulmonic regurgitation. Great Vessels: The aortic root is normal size. The dimensions of the ascending aorta are normal. The IVC is of normal diameter and collapses greater than 50% with a sniff. This suggests a low right atrial pressure of 3 mm Hg. Pericardium/ Pleura There is no pericardial effusion. There is no pleural effusion. MMode/2D Measurements & Calculations LVIDd: 3.6 cm LVOT diam: 2.1 cm LVIDs: 2.4 cm Ao root diam: 3.5 cm FS: 34.6 % asc Aorta Diam: 3.4 cm IVSd: 1.0 cm LVPWd: 0.92 cm LV ruiz. diameter/BSA (cm/m^2): 2.5 LV sys. diameter/BSA (cm/m^2): 1.6 LA A2 area: 14.1 cm2 RA long axis: 4.4 cm LA A4 area: 13.6 cm2 RA area: 14.8 cm2 LA length (vol): 4.7 cm RA vol: 42.1 ml LA vol: 34.8 ml RA : 29.1 ml/m2 LA vol index: 24.0 ml/m2 IVC diam: 1.7 cm RVD1 (basal): 3.6 cm TAPSE: 1.9 cm Doppler Measurements & Calculations Ao V2 max: 98.9 cm/sec LVOT Max Owen: 75.9 cm/sec Ao V2 mean: 71.1 cm/sec LV V1 max P.3 mmHg Ao max P.9 mmHg LV V1 VTI: 17.3 cm Ao mean P.2 mmHg PHILIP(I,D): 2.7 cm2 Ao V2 VTI: 22.7 cm PHILIP(V,D): 2.7 cm2 sev ratio: 0.76 PHILIP indexed to BSA (cm^2/m^2): 1.8 AI P1/2t: 584.9 msec AI dec slope: 196.4 cm/sec2 MV E max owen: 87.8 cm/sec TR max owen: 277.8 cm/sec MV A max owen: 99.7 cm/sec TR max P.9 mmHg MV E/A: 0.88 PA V2 max: 78.3 cm/sec Med Peak E' Owen: 5.1 cm/sec PA V2 mean: 52.9 cm/sec E/E' med: 17.3 PA mean P.3 mmHg Lat Peak E' Owen: 4.0 cm/sec PA pr(Accel): 46.5 mmHg E/E' lat: 21.8 E/e' average: 19.5 MV dec time: 0.24 sec SV(ISAURO): 60.6 ml Reading Physician:05:43 PM
--- NOTE | 2024-09-17 08:05 | DI.CT.S_ITS ---
PROCEDURE: CT CHEST HIGH RESOLUTION INDICATIONS: WEAKNESS,SYSTOLIC HEART FAILURE TECHNIQUE: Noncontrast 1.0 and 5.0 mm thick contiguous axial sections from the pulmonary apex to the posterior costophrenic angles, with 7 mm thick coronal and sagittal MIP reformats. 1 mm thick dynamic expiratory images acquired through the upper, mid, and lower lungs. 1.0 mm thick axial sections acquired from the gamaliel to the posterior costophrenic angles in the prone end-inspiration position. For radiation dose reduction, the following was used: automated exposure control, adjustment of mA and/or kV according to patient size. COMPARISON: [facility], CT, CHEST/ABD/PEL WITH CONTRAST, 05/14/2017, 14:06. FINDINGS: Image quality: Diagnostic. Lower Neck: No enlarged lymph nodes. Thyroid: Diminutive. No nodule. Axillae: No enlarged lymph nodes. Chest Wall: No chest wall mass. Bones: Severe disc degeneration in the mid to lower thoracic spine with some disc calcification and multilevel endplate spur formation. Mild superior endplate scalloping of T4 and T5. Lungs and Pleura: Asymmetric right hemidiaphragm elevation. Pleural irregularity and irregular reticulation peripherally in the upper to mid lung zone bilaterally. Reticulonodular pattern with several scattered solid parenchymal nodules, the largest in the right lung is in the middle lobe and measures 1.3 x 0.6 cm, 3/155 and one of the largest in the left lung in the left lower lobe measures about 0.5 cm, 3/159. At the lung bases there are several patchy nodular opacities in the lateral costophrenic sulcus in the left lung. Mild central bronchiectasis bilaterally. No bronchial wall thickening. Mild traction bronchiectasis in the right posterior lower lobe. Irregular pleural thickening is seen posteriorly in the right lower lung and laterally in the left lung along the major fissure at a mid lung level. No pleural effusions or pneumothorax. During exhalation, there is moderate air trapping. Heart: The heart size is normal. Mild coronary artery and heavy mitral annular calcification. No pericardial effusion. Thoracic Vessels: Aorta is normal caliber with mild arch calcification. Pulmonary arteries are at the upper limits of normal in size. Mediastinum and [place]: No enlarged lymph nodes. Esophagus: No significant esophageal wall thickening. Moderate to large hiatal hernia. Upper Abdomen: Visualized upper abdomen solid organs and bowel loops appear normal. IMPRESSION: Reticulonodular diffuse interstitial lung disease where reticulation demonstrates an upper lobe predominance no there is mild diffuse bronchiectasis. Findings are nonspecific and the differential diagnosis is broad including infection, inflammation, atypical exposures, and sarcoidosis. Chronic pulmonary edema or interstitial edema is much less likely with this pattern. Several bilateral pulmonary nodules. Largest measuring about 1.3 cm. This nodule was present, though smaller on 05/14/17 and is probably benign. Three to six-month follow-up chest CT is recommended for other nodules. Moderate to large, chronic hiatal hernia. Dictated by: Yu Syed M.D. on 09/17/2024 at 14:52 Approved by: Yu Syed M.D. on 09/17/2024 at 15:17
== END ==
PROVIDERS: PCP Family Medicine; Referring Provider Internal Medicine Cardiovascular Disease; Visit Provider Internal Medicine Cardiovascular Disease
DX: I08.3 Combined rheumatic disorders of mitral, aortic and tricuspid valves (principal); I25.10 Atherosclerotic heart disease of native coronary artery without angina pectoris; I70.0 Atherosclerosis of aorta; I50.22 Chronic systolic (congestive) heart failure; I44.7 Left bundle-branch block, unspecified; R91.8 Other nonspecific abnormal finding of lung field; J47.9 Bronchiectasis, uncomplicated; K44.9 Diaphragmatic hernia without obstruction or gangrene; M51.34 Other intervertebral disc degeneration, thoracic region; R53.1 Weakness; R06.02 Shortness of breath
CPT/HCPCS: 71250; 93306

== ENCOUNTER → 2024-10-16 10:43 | Outpatient (CLI) | payer MEDICARE, OTHER, SELFPAY ==
[2024-10-20 13:40] LABS: Lamotrigine Lamictal 9.8 ug/mL (2.0-20.0)
== END ==
PROVIDERS: PCP Family Medicine; Referring Provider Psychiatry & Neurology Psychiatry; Visit Provider Psychiatry & Neurology Psychiatry
DX: F31.4 Bipolar disorder, current episode depressed, severe, without psychotic features (principal); F41.1 Generalized anxiety disorder; Z79.899 Other long term (current) drug therapy
CPT/HCPCS: 36415; 80175; 99214

== ENCOUNTER → 2024-12-02 15:37 | Outpatient (CLI) | payer MEDICARE, OTHER, SELFPAY ==
[2024-12-02 16:36] LABS: BUN Creatinine Ratio 21.4 (6-22); Blood Urea Nitrogen 22 mg/dL (7-17); Calcium 10.5 mg/dL (8.4-10.2); Carbon Dioxide 33 mmol/L (22-32); Chloride 95 mmol/L (98-107); Estimated Glomerular Filt Rate 52 mL/min (>60); Glucose 107 mg/dL (80-110); HEMOLYSIS < 15 (0-50); Potassium 4.3 mmol/L (3.4-5.1); Sodium 136 mmol/L (137-145)
== END ==
PROVIDERS: PCP Family Medicine; Referring Provider Internal Medicine Cardiovascular Disease; Visit Provider Internal Medicine Cardiovascular Disease
DX: I50.22 Chronic systolic (congestive) heart failure (principal)
CPT/HCPCS: 36415; 80048

== ENCOUNTER → 2024-12-12 14:04 | Outpatient (CLI) | payer MEDICARE, OTHER, SELFPAY | PROVIDERS: PCP Family Medicine; Referring Provider Family Medicine; Visit Provider Family Medicine | DX: E83.52 Hypercalcemia (principal) | CPT/HCPCS: 36415; 82310; 82330; 83970 ==

== ENCOUNTER 2025-10-30 12:09 | Emergency (ER) | payer MEDICARE, OTHER, SELFPAY ==
--- OUTSIDE RECORDS SUMMARY | 2025-10-30 12:12 | XMS_ITS | Clinical Summary ---
Author Organization [facility] Address [address] [place] [address] Care Team Providers Care Skeiner Name Role Phone Carlos Patterson MD Primary Care Provider [phone] Allergies No known active allergies Medications omeprazole (PriLOSEC) 20 mg capsule Take 1 capsule (20 mg total) by mouth daily Active acetaminophen (TYLENOL) 500 mg tablet Take 1 tablet (500 mg total) by mouth every 8 (eight) hours as needed for mild pain (1-3) Active celecoxib (CeleBREX) 200 mg capsule Take 1 capsule (200 mg total) by mouth 2 (two) times a day Active multivitamin capsule Take 1 capsule by mouth daily Active gabapentin (NEURONTIN) 100 mg capsule Take 3 capsules (300 mg total) by mouth 2 (two) times a day 100 mg in am and 200 mg in evening 01/03/2024 Active lamoTRIgine (LaMICtal) 100 mg tablet Take 1 tablet (100 mg total) by mouth daily 08/28/2024 Active Linzess 145 mcg capsule 145 mcg daily 05/30/2024 Activ e levothyroxine (SYNTHROID) 75 mcg tablet Take 1 tablet (75 mcg total) by mouth daily 08/20/2024 Active metoprolol succinate XL (TOPROL-XL) 25 mg 24 hr tablet TAKE 1 TABLET DAILY 90 tablet 3 04/28/2025 Active buPROPion (WELLBUTRIN) 75 mg tablet Take 2 tablets (150 mg total) by mouth daily 07/02/2025 Active ARIPiprazole (ABILIFY) 2 mg tablet Take 1 tablet (2 mg total) by mouth daily Active spironolactone (ALDACTONE) 25 mg tablet Take 0.5 tablets (12.5 mg total) by mouth daily 45 tablet 3 09/02/2025 Active sacubitriL-vals christo (Entresto) 49-51 mg tablet tablet Take 1 tablet by mouth 2 (two) times a day 180 tablet 3 09/02/2025 Active Active Problems Problem Noted Date Diagnosed Date Acquired hypothyroidism 07/24/2025 Chronic depression 02/19/2024 Chronic systolic heart failure 01/24/2022 Nonrheumatic aortic valve regurgitation 01/25/20 22 Cardiomyopathy 11/27/2019 Essential hypertension 11/27/2019 LBBB (left bundle branch block) 09/04/2019 Encounters Date Type Department Care Team Description 09/02/[address] [facility] Cardiology [address], [place] [address] Rajni Grimes MD from Last 3 Months Social History Tobacco Use Types Packs/Day Years Used Date Smoking Tobacco: Former Cigarettes Smokeless Tobacco: Never Tobacco Cessation:Counseling Given: Not Answered Comments Unknown Sex and Gender Information Value Date Recorded Sex Assigned at Not on file Legal Sex Female 9:55 AM PDT Gender Identity Not on file Sexual Orientation Not on file Last Filed Vital Signs Vital Sign Reading Time Taken Comments Blood Pressure 130/82 07/24/2025 1:08 PM PDT Pulse 79 07/24/2025 1:08 PM PDT Temperature - - Respiratory Rate - - Oxygen Saturation - - Inhaled Oxygen Concentration - - Weight 45.3 kg (99 lb 12.8 oz) 07/24/2025 1:08 P M PDT Height 160 cm (5' 2.99) 07/24/2025 1:08 PM PDT Body Mass Index 17.68 07/24/2025 1:08 PM PDT Plan of Treatment Health Maintenance Due Date Last Done Comments Medicare Annual Wellness (AWV) 1935 Depression Screening (PHQ-9) 1947 DTaP,Tdap,and Td Vaccines (1 - Tdap) 1955 Fall Risk Screening 2001 RSV Patients Over 60 years OR qualifying ( Patients) (1 - 1-dose 75+ series) 2011 Zoster Vaccines (2 of 2) 12/01/2024 10/06/2024 COVID-19 Vaccine ( season) 2025 10/06/2024, 09/18/2022, 04/12/2022, Additional history exists Influenza Vaccine (#1) 2025 , 09/18/2022, 07/27/2021, Additional history exists HM Pneumococcal Adult 50+ Completed 10/06/2024, HM Pneumococcal Combined Age 0-49 Discontinued 10/06/2024, 09/04/2014 HPV Vaccines Aged Out No longer eligi ble based on patient's age to complete this topic Hepatitis A Vaccines Aged Out No long er eligible based on patient's age to complete this topic Hepatitis B Vaccines Aged Out No long er eligible based on patient's age to complete this topic IPV Vaccines Aged Out No longer eligi ble based on patient's age to complete this topic MMR Vaccines Aged Out No longer eligi ble based on patient's age to complete this topic Insurance MEDICARE PART A AND B [facility] Care Teams Skeiner Relationship Specialty Start Date End Date Carlos Patterson MD [address] [place] [address] PCP - General Family Medicine 07/24/25
[2025-10-30 12:53] VITALS: BP 162/79; PULSE 74; RESP 16; TEMP 36.5; O2SAT 94; BMI 17.6
--- NOTE | 2025-10-30 13:00 | DI.RAD.S_ITS ---
PROCEDURE: XR CHEST 1V INDICATIONS: Chest Pain TECHNIQUE: One view of the chest was acquired. COMPARISON: [facility], CR, XR CHEST 2V, 08/26/2024, 15:36. FINDINGS: Surgical changes and devices: None. Lungs and pleura: Lungs are clear. No pleural effusions or pneumothorax. Mediastinum: Mediastinal contours appear normal. Heart size is normal. Bones and chest wall: No suspicious bony lesions. Overlying soft tissues appear unremarkable. IMPRESSION: No acute cardiopulmonary abnormality is seen. Dictated by: Lai Muñiz M.D. on 10/30/2025 at 14:06 Approved by: Lai Muñiz M.D. on 10/30/2025 at 14:08
--- NOTE | 2025-10-30 13:00 | EKG_ITS ---
[facility] [address], [place] [address] Test Date: 2025-10-30 Pat Name: Sandra Saucedo Department: [facility] Room: Gender: Female [employer]: KIN : 1935 Requested By: Order Number: [id number] Reading MD: Jose Mortensen MD Measurements Intervals [place] Rate: 71 P: 57 LA: 142 QRS: -69 QRSD: 128 T: 84 QT: 436 QTc: 473 Interpretive Statements Normal sinus rhythm Left axis deviation Left bundle branch block (old) Electronically Signed On 10-30-2025 15:59:10 PST by Jose Mortensen MD
[2025-10-30 13:39] LABS: Add Manual Diff / Slide Review NO; Hematocrit 44.0 % (36-46); Hemoglobin 15.0 g/dL (12.0-16.0); Lymphocytes Absolute Auto 600 /uL (1100-4500); Mean Corpuscular HGB Conc 34.2 % (30-36); Mean Corpuscular Hemoglobin 32.9 PG (26-34); Mean Corpuscular Volume 96.2 fL (80-100); Platelet Count 198 X10^3/uL (150-400)
[2025-10-30 13:45] LABS: INR 1.0 (0.9-1.3); Prothrombin Time 11.3 SECONDS (9.4-12.5)
[2025-10-30 13:48] LABS: PTT Partial Thromboplastin Tim 29 SECONDS (25.1-36.5)
[2025-10-30 13:53] LABS: Alanine Aminotransferase 21 IU/L (<35); Albumin 4.2 g/dL (3.5-5.0); Albumin Globulin Ratio 1.3 (1.0-2.8); Alkaline Phosphatase 43 U/L (38-126); Blood Urea Nitrogen 33 mg/dL (7-17); Calcium 8.6 mg/dL (8.4-10.2); Carbon Dioxide 33 mmol/L (22-32); Chloride 95 mmol/L (98-107); Creatine Kinase 35 U/L (30-135); Estimated Glomerular Filt Rate > 60 mL/min (>60); Globulin 3.2 g/dL (1.7-4.1); Glucose 107 mg/dL (70-99); HEMOLYSIS 16 (0-50); Lipase 127 U/L (23-300); Magnesium 1.7 mg/dL (1.6-2.3); Potassium 3.5 mmol/L (3.4-5.1); Sodium 134 mmol/L (137-145); Total Protein 7.4 g/dL (6.3-8.2)
[2025-10-30 14:08] LABS: NT-proBNP (BNP-Adult 18+) 396 pg/mL (<450); Troponin I < 0.012 ng/mL (0.01-0.034)
--- NOTE | 2025-10-30 15:49 | DI.CT.S_ITS ---
PROCEDURE: CT HEAD/BRAIN WO CON INDICATIONS: dizziness TECHNIQUE: Noncontrast 4.5 mm thick angled axial sections acquired from the foramen magnum to the vertex, with coronal and sagittal reformats. For radiation dose reduction, the following was used: automated exposure control, adjustment of mA and/or kV according to patient size. COMPARISON: [facility], CT, CT HEAD/BRAIN WO CON, 06/09/2024, 12:56. [facility], CT, CT HEAD/BRAIN WO CON, 07/18/2019, 18:46. [facility], CT, CT ANGIO HEAD AND NECK, 10/30/2025, 16:10. [facility], CT, CT HEAD/BRAIN WO CON, 07/09/2024, 17:10. FINDINGS: Image quality: Diagnostic. CSF spaces: Basal cisterns are patent. No extra-axial fluid collections. The ventricles are symmetric in size and shape. Brain: No intracranial bleeds or mass effect. There is cerebral volume loss, with resultant ventricular and sulcal prominence. There are periventricular and deep white matter chronic small vessel ischemic changes. There is intracranial internal carotid artery atherosclerosis. Skull and face: Calvarium and visualized facial bones appear intact, without suspicious lesions. Sinuses: Visualized sinuses and mastoids are clear. IMPRESSION: Unremarkable noncontrast head CT for age, similar to the prior. Dictated by: Kennedy Dowling M.D. on 10/30/2025 at 15:43 Approved by: Kennedy Dowling M.D. on 10/30/2025 at 15:45
--- NOTE | 2025-10-30 15:49 | DI.CT.S_ITS ---
PROCEDURE: CT ANGIO HEAD AND NECK INDICATIONS: dizziness TECHNIQUE: After the administration of intravenous contrast, 1 mm thick sections acquired from the aortic arch through the [place] of [place]. 3-dimensional vhbbrtp-ngmmnyrzd-ufrqjbltej (MIP) and/or volume rendering reformats were acquired of the central intracranial vasculature and neck separately. For radiation dose reduction, the following was used: automated exposure control, adjustment of mA and/or kV according to patient size. COMPARISON: [facility], CT, CT HEAD/BRAIN WO CON, 10/30/2025, 16:10. FINDINGS: Image quality: Limited by bolus timing, with venous contamination. Cerebral CT Angiogram: Internal carotid arteries: No acute findings. Intracranial ICA are patent with no significant stenosis. No occlusion. No aneurysm. Anterior cerebral arteries: Unremarkable. No significant stenosis. No occlusion. No aneurysm. Middle cerebral arteries: Unremarkable. No significant stenosis. No occlusion. No aneurysm. Posterior cerebral arteries: There is a prominent right posterior communicating artery seen, with an accompanying diminutive right P1 segment. This is attributed to a type origin of the right posterior cerebral artery, which is considered to be a normal developmental variant of typically no clinical consequence. The flow within the posterior cerebral arteries is normal and symmetric. No aneurysms are seen. Basilar artery: Unremarkable. No significant stenosis. No occlusion. No aneurysm. Vertebral arteries: Unremarkable as visualized. Dural venous sinuses: Unremarkable given phase of enhancement. Other: Arterial phase appearance of the brain parenchyma is unremarkable. Neck CT Angiogram: Internal carotid arteries: Unremarkable. No significant stenosis. No dissection or occlusion. Common carotid arteries: Unremarkable. No significant stenosis. No dissection or occlusion. External carotid arteries: Unremarkable. No occlusion. Vertebral arteries: Unremarkable. No significant stenosis. No dissection or occlusion. Aortic Arch and Mediastinum: Partially visualized aortic arch unremarkable without evidence of aneurysm. Incidental note is made of a common origin of the right brachiocephalic artery and the left common carotid artery (bovine type arch). This is considered to be a developmental variant of no clinical consequence. Other: Arterial phase soft tissues of the neck and chest are unremarkable. Moderate to prominent cervical spine degenerative change can be seen. IMPRESSION: No significant intracranial arterial abnormality is seen. No significant abnormality is seen within the arteries of the neck. Additional findings: [id number] developmental anomalies. Moderate to prominent cervical spine degenerative change Bovine type aortic branching pattern Any quantitative measurements of stenosis were performed using NASCET criteria. Dictated by: Kennedy Dowling M.D. on 10/30/2025 at 15:45 Approved by: Kennedy Dowling M.D. on 10/30/2025 at 15:47
[2025-10-30 18:09] LABS: Culture Indicated Urine Cult Not Indicated
--- NOTE | 2025-10-30 18:23 | ED.GENADULT ---
HPI - General Adult General Chief complaint: Dizziness Stated complaint: weak dizzy dehydrated? for 2-3 days Time Seen by Provider: 10/30/25 14:58 Source: patient Mode of arrival: Wheelchair History of Present Illness HPI narrative: 89-year-old woman with a history of bipolar disorder with depression that is getting progressively worse. She has with dementia for whom she cares. According to her, her is severely disabled, she is severely disabled she is not able to get up or get out of bed and she is feeling worse and worse, with no physical specifics offered. Corroborating story with her daughter is that daughter has been having help come in daily for at least 3 hours a day, that her father is actually demented but far more functional than her mother described. He is not wondering, belligerent and is easily redirectable. Daughter also notes that the mother has a long history of dramatic effective behavior and very effective use of guilt behaviors to have her needs fulfilled. Related Data Home Medications ?Medication ?Instructions ?Recorded ?Confirmed acetaminophen 325 mg tablet 650 mg PO QID PRN fever or pain 08/28/22 05/27/25 sacubitril 24 mg-valsartan 26 mg 1 tab PO BID 08/28/22 05/27/25 tablet (Entresto) metoprolol succinate 25 mg 25 mg PO DAILY 08/26/24 05/27/25 tablet,extended release 24 hr Previous Rx's ?Medication ?Instructions ?Recorded calcium carbonate (Calcium 600) 600 mg PO BID #180 tabs 06/06/23 celecoxib 200 mg capsule See Rx Instructions .Route 09/23/24 .COMPLEX #180 caps linaclotide 72 mcg capsule 72 mcg PO DAILY #90 caps 11/25/24 (Linzess) spironolactone 25 mg tablet 25 mg PO DAILY #30 tabs 11/25/24 levothyroxine 75 mcg tablet 75 mcg PO DAILY #90 tabs 03/06/25 (Synthroid) cyproheptadine 4 mg tablet 4 mg PO BID-QID PRN decreased 05/27/25 appetite #120 tabs omeprazole 20 mg capsule,delayed See Rx Instructions .Route 06/03/25 release .COMPLEX #180 caps bupropion HCl 75 mg tablet 150 mg (2 x 75 mg) PO DAILY #60 07/02/25 tabs hydrocortisone acetate 25 mg 25 mg MT BID PRN hemorrhoids #12 ea 07/21/25 rectal suppository (Anucort-HC) lamotrigine 25 mg tablet See Rx Instructions .Route 09/17/25 .COMPLEX #21 tabs gabapentin 100 mg capsule 300 mg (3 x 100 mg) PO BEDTIME 10/05/25 #270 caps lumateperone 42 mg capsule 42 mg PO DAILY #30 caps 10/05/25 Allergies Allergy/AdvReac Type Severity Reaction Status Date / Time No Known Drug Allergies Allergy Verified 10/30/25 12:53 Review of Systems Review of Systems Narrative: Pertinent positive and negative findings as per HPI Patient History Medical History (Updated 10/30/25 @ 21:00 by Darling Alonso MD) Pulmonary nodules Congestive heart failure Hypotension Alcohol use disorder, moderate, in early remission, dependence IBS (irritable colon syndrome) Hyperlipidemia GERD (gastroesophageal reflux disease) Hiatal hernia Hypertension Acute exacerbation of chronic low back pain Cervical radiculopathy Cervical spondylosis Abnormal chest x-ray Shoulder pain Chicken pox Psoriasis Allergies Sleep apnea Restless leg syndrome Migraine Headache Chronic neck and back pain Osteopenia Carpal tunnel syndrome (~1990) Anemia Tinnitus Hypothyroidism Insomnia Adjustment disorder with depressed mood Alcoholism Depression Surgical History Anesthesia History of colon surgery (~2004) No pertinent past surgical history Family History Father Congestive heart failure Mother History of heart disease Brother No problems noted. Grandmother History of heart disease Grandfather Aneurysm Grandmother History of heart disease Family/Other No problems noted. Social History Smoking Status: Former smoker Smoking Status: Former smoker alcohol intake frequency: 0-2 drinks per day Exam Initial Vital Signs Initial Vital Signs: Vital Signs Temperature 97.7 F 10/30/25 12:53 Pulse Rate 74 10/30/25 12:53 Respiratory Rate 16 10/30/25 12:53 Blood Pressure 162/79 H 10/30/25 12:53 Pulse Oximetry 94 10/30/25 12:53 Oxygen Delivery Method Room Air 10/30/25 12:53 General: Frail, very flat affect, deep circles under her eyes, poor eye contact HEENT: Moist mucous membranes, normal sclera with reactive pupils, Respiratory: Lungs are clear to auscultation, Full and symmetrical air movement Cardiac: Regular rate and rhythm no murmurs Abdomen: Soft, nontender, no rebound or guarding, no flank pain Neurologic: Grossly neurologically intact with no obvious asymmetries or abnormalities Extremities: No trauma, no lower extremity edema Psych: Wall falling answers, unable to make decisions, fluent speech, behavior escalates when directly observed or when her daughter is in the vicinity Course Orders Ordered: ED Orders 10/30/25 13:00 XR chest 1V Stat EKG-12 Lead Stat 10/30/25 13:29 Complete Blood Count AUTO DIFF Stat Comprehensive Metabolic Panel Stat ETOH [Ethanol (ETOH)] Stat Lipase Stat Magnesium Stat NT-proBNP (BNP-Adult 18+) Stat PTT Partial Thromboplastin Chase Stat Prothrombin Time INR Stat Troponin & CK Cardiac Panel Stat 10/30/25 15:00 urine tox [Urine Drug Screen, Rapid] Stat 10/30/25 15:49 CT angio head and neck Stat CT head/brain wo con Stat 10/30/25 18:00 Urine Microscopic Stat 10/30/25 18:31 Consult to [employer]ER - Regulatory Assistant Stat 10/30/25 18:51 COVID19 -Nasal RAPID Stat Discontinued Medications Aspirin (Aspirin 81 Mg Chew Tab) 324 mg PO NOW ONE Stop: 10/30/25 13:01 Last Admin: 10/30/25 16:26 Dose: Not Given Documented By: [facility] Vital Signs Vital signs: Vital Signs - 8 hr 10/30/25 18:44 Pulse Rate 71 Respiratory Rate 18 Blood Pressure 171/85 H Pulse Oximetry 92 Oxygen Delivery Method Room Air Medical Decision Making Lab Data 10/30/25 13:29 10/30/25 13:29 Labs: Lab Results 10/30/25 10/30/25 10/30/25 Range/Units 13:29 15:00 18:00 WBC 4.7 (4.5-11.0) X10^3/uL RBC 4.57 (4.0-5.2) X10^6/uL Hgb 15.0 (12.0-16.0) g/dL Hct 44.0 (36-46) % MCV 96.2 (80-100) fL MCH 32.9 (26-34) PG MCHC 34.2 (30-36) % RDW 13.0 (11.6-14.8) % Plt Count 198 (150-400) X10^3/uL Neut % (Auto) 76.5 H (50-75) % Lymph % (Auto) 13.8 L (25-40) % [place] % (Auto) 8.2 (3-14) % Eos % (Auto) 0.8 L (2-4) % Baso % (Auto) 0.7 (0-2) % Neut # (Auto) 3600 (0698-4841) /uL Lymph # (Auto) 600 L (0163-5020) /uL [place] # (Auto) 400 (0-900) /uL Eos # (Auto) 0 (0-450) /uL Baso # (Auto) 0 (0-100) /uL PT 11.3 (9.4-12.5) SECONDS INR 1.0 (0.9-1.3) APTT 29 (25.1-36.5) SECONDS Sodium 134 L (137-145) mmol/L Potassium 3.5 (3.4-5.1) mmol/L Chloride 95 L (98-107) mmol/L Carbon Dioxide 33 H (22-32) mmol/L BUN 33 H (7-17) mg/dL Creatinine 0.58 (0.52-1.04) mg/dL Estimated GFR > 60 (>60) mL/min BUN/Creatinine Ratio 56.9 H (6-22) Glucose 107 H (70-99) mg/dL Calcium 8.6 (8.4-10.2) mg/dL Magnesium 1.7 (1.6-2.3) mg/dL Total Bilirubin 0.7 (0.2-1.3) mg/dL AST 23 (14-36) IU/L ALT 21 (<35) IU/L Alkaline Phosphatase 43 (38-126) U/L Total Creatine Kinase 35 (30-135) U/L Troponin I < 0.012 (0.01-0.034) ng/mL NT-Pro-B Natriuret Pep 396 (<450) pg/mL Total Protein 7.4 (6.3-8.2) g/dL Albumin 4.2 (3.5-5.0) g/dL Globulin 3.2 (1.7-4.1) g/dL Albumin/Globulin Ratio 1.3 (1.0-2.8) Lipase 127 (23-300) U/L Urine RBC 0-1/hpf (0-5/HPF) Urine WBC 0-1/hpf (0-5/HPF) Ur Squamous Epith Cells 0-1 /hpf (0-5/HPF) Urine Bacteria Occasional (0-1) (None) Ur Culture Indicated? Cult not indicated Vol Urine Centrifuged 10ml (spun) U Opiates 300ng/mL cut Negative (Negative) Ur Oxycodone Screen Negative (Negative) Urine Methadone Screen Negative (Negative) Ur Barbiturates Screen Negative (Negative) U Tricyclic Antidepress Negative (Negative) Ur Phencyclidine Scrn Negative (Negative) Ur Amphetamines Screen Negative (Negative) U Methamphetamines Scrn Negative (Negative) Ur MDMA Scrn (Ecstasy) Negative (Negative) U Benzodiazepines Scrn Negative (Negative) Urine Cocaine Screen Negative (Negative) U Marijuana (THC) Screen Negative (Negative) Urine pH Normal (Normal) Urine Specific [place] Normal (Normal) Ethyl Alcohol < 10 (<10) mg/dL Ur Creatinine Normal (Normal) SARS-CoV-2 (PCR) (Negative) 10/30/25 Range/Units 18:51 WBC (4.5-11.0) X10^3/uL RBC (4.0-5.2) X10^6/uL Hgb (12.0-16.0) g/dL Hct (36-46) % MCV (80-100) fL MCH (26-34) PG MCHC (30-36) % RDW (11.6-14.8) % Plt Count (150-400) X10^3/uL Neut % (Auto) (50-75) % Lymph % (Auto) (25-40) % [place] % (Auto) (3-14) % Eos % (Auto) (2-4) % Baso % (Auto) (0-2) % Neut # (Auto) (1953-6159) /uL Lymph # (Auto) (6879-9436) /uL [place] # (Auto) (0-900) /uL Eos # (Auto) (0-450) /uL Baso # (Auto) (0-100) /uL PT (9.4-12.5) SECONDS INR (0.9-1.3) APTT (25.1-36.5) SECONDS Sodium (137-145) mmol/L Potassium (3.4-5.1) mmol/L Chloride (98-107) mmol/L Carbon Dioxide (22-32) mmol/L BUN (7-17) mg/dL Creatinine (0.52-1.04) mg/dL Estimated GFR (>60) mL/min BUN/Creatinine Ratio (6-22) Glucose (70-99) mg/dL Calcium (8.4-10.2) mg/dL Magnesium (1.6-2.3) mg/dL Total Bilirubin (0.2-1.3) mg/dL AST (14-36) IU/L ALT (<35) IU/L Alkaline Phosphatase (38-126) U/L Total Creatine Kinase (30-135) U/L Troponin I (0.01-0.034) ng/mL NT-Pro-B Natriuret Pep (<450) pg/mL Total Protein (6.3-8.2) g/dL Albumin (3.5-5.0) g/dL Globulin (1.7-4.1) g/dL Albumin/Globulin Ratio (1.0-2.8) Lipase (23-300) U/L Urine RBC (0-5/HPF) Urine WBC (0-5/HPF) Ur Squamous Epith Cells (0-5/HPF) Urine Bacteria (None) Ur Culture Indicated? Vol Urine Centrifuged U Opiates 300ng/mL cut (Negative) Ur Oxycodone Screen (Negative) Urine Methadone Screen (Negative) Ur Barbiturates Screen (Negative) U Tricyclic Antidepress (Negative) Ur Phencyclidine Scrn (Negative) Ur Amphetamines Screen (Negative) U Methamphetamines Scrn (Negative) Ur MDMA Scrn (Ecstasy) (Negative) U Benzodiazepines Scrn (Negative) Urine Cocaine Screen (Negative) U Marijuana (THC) Screen (Negative) Urine pH (Normal) Urine Specific [place] (Normal) Ethyl Alcohol (<10) mg/dL Ur Creatinine (Normal) SARS-CoV-2 (PCR) Negative (Negative) MDM Narrative Medical decision making narrative: 89-year-old woman with a history of bipolar disorder significant depression followed by psychiatrist and therapist with lifelong habits of psychiatric manipulative behavior that are no longer as effective as they have been in the past. She is concerned that she is dying. She is not actively suicidal does not have a plan. Has never tried to kill herself previously. Her daughter is not sure if she is taking her medications as prescribed but the patient says that she is. Is patient says she is not eating or drinking at all, daughter notes that she had 2 meals with her yesterday. We discussed possibility of inpatient care for her severe depression and that patient was not interested in this as an option. Our health social work professor did talk with the patient. Her psychiatrist, her therapist and our community automotive machinist apprentice we will all be involved. I spoke with her daughter offered her encouragement for continue with the care that she is getting, pointed out some of the care facilities and information that the health social work professor gave to her mother. Encouraged the daughter to follow up with the [facility] regarding further benefits for her father. At this point there is no indication for hospitalization and the patient is discharged home with her daughter. Discharge Plan Departure Patient Disposition: Home Clinical Impression: Bipolar disorder with severe depression Instructions: DI for Depression Exacerbation Activity Restrictions/Additional Instructions: Thank you for coming in today Your medical workup was actually very reassuring. There was no evidence of heart attack, infection, kidney problems, urinary tract infection or anything that is currently life-threatening from a medical standpoint. Depression is horrible disease with which to deal. It makes everything not as much more complicated. We did discuss the possibility of having you go to an inpatient psychiatric care facility to help with your severe depression but you did not want to do that. He did speak with our health social work professor and Dr. Alvarez your psychiatrist as well as your counselor we will be notified of your ER visit. We have also asked our community automotive machinist apprentice to come visit and see if there suggestions he might have I spoke with your daughter and you currently somebody coming to your house for at least 3 hours every day. I would recommend contacting the [facility] and working her way through their complicated system to see if they have any additional benefits that might be available to your which would in turn take some of his care burden from you I would also contact Dr. Patterson and see if you would consider ordering home physical therapy evaluation to help make sure that you are not getting so weak that you can not continue with your activities of daily living Even though it seems almost impossible, it is very important that you continue to eat, drink and get up and move around regularly every day If you find that you are getting worse or develop any new symptoms, please feel free to return to the emergency department for further evaluation. Prescriptions: No Action cyproheptadine 4 mg tablet 4 mg PO BID-QID PRN (Reason: decreased appetite) Qty: 120 3RF metoprolol succinate 25 mg tablet extended release 24 hr 25 mg PO DAILY bupropion HCl 75 mg tablet 150 mg PO DAILY Qty: 60 3RF lumateperone 42 mg capsule 42 mg PO DAILY Qty: 30 3RF gabapentin 100 mg capsule 300 mg PO BEDTIME Qty: 270 3RF lamotrigine 25 mg tablet See Rx Instructions .ROUTE .COMPLEX Qty: 21 0RF Rx Instructions: Tapering dose: Take 50 mg for 7 days; then take 25 mg for 7 days; then stop.; calcium carbonate [Calcium 600] 600 mg calcium (1,500 mg) tablet 600 mg PO BID Qty: 180 3RF celecoxib 200 mg capsule See Rx Instructions .ROUTE .COMPLEX Qty: 180 3RF Dose Instruction: TAKE 1 CAPSULE(200 MG) BY MOUTH DAILY FOR PAIN Rx Instructions: TAKE 1 CAPSULE(200 MG) BY MOUTH twice DAILY FOR PAIN WITH OMEPRAZOLE spironolactone 25 mg tablet 25 mg PO DAILY Qty: 30 2RF Linzess 72 mcg capsule 72 mcg PO DAILY Qty: 90 3RF levothyroxine [Synthroid] 75 mcg tablet 75 mcg PO DAILY Qty: 90 3RF omeprazole 20 mg capsule,delayed release(DR/EC) See Rx Instructions .ROUTE .COMPLEX Qty: 180 3RF Dose Instruction: TAKE 1 CAPSULE(20 MG) BY MOUTH DAILY FOR GERD AND COUGH Rx Instructions: TAKE 1 CAPSULE(20 MG) BY MOUTH BID FOR GERD AND COUGH hydrocortisone acetate [Anucort-HC] 25 mg suppository 25 mg MT BID PRN (Reason: hemorrhoids) Qty: 12 2RF acetaminophen 325 mg tablet 650 mg PO QID PRN (Reason: fever or pain) Entresto 24-26 mg tablet 1 tab PO BID Referrals: Carlos Patterson MD [Primary Care Provider, Family Practice] Stand Alone Forms: Patient Portal/API
--- NOTE | 2025-10-30 18:28 | PC.NURSE ---
Daughter Aissatou [phone]
[2025-10-30 18:44] VITALS: BP 171/85; PULSE 71; RESP 18; O2SAT 92
[2025-10-30 18:58] LABS: Ur Specific Gravity Normal (Normal)
[2025-10-30 18:59] LABS: UR Morphine/Opiate cutoff 300 Negative (Negative); Urine MDMA Negative (Negative); Urine Methamphetamines Negative (Negative); Urine Tetrahydrocannabinol Negative (Negative); Urine Tricyclic Antidepressant Negative (Negative)
[2025-10-30 19:20] LABS: COVID19 -Nasal RAPID Negative (Negative)
[2025-10-30 19:20] LABS: Ethanol (ETOH) < 10 mg/dL (<10)
--- NOTE | 2025-10-30 19:55 | CM.SWNOTE ---
Addendum entered by Niharika Zhao 10/30/25 20:18: PALS NURSE provides patient with contact information for JAY Portillo, contact information for Evangelista Maxwell [facility] Utilization Coordinator, Senior resource guide, information about dementia support groups and lists of LTC facilities. JAY Duran Original Note: ED PALS NURSE Assessment Note Patient is 89 y/o female who presents to ED via private vehicle with daughter due to concern for dizziness. Patient's PCP is Dr. Patterson, Patient sees Psychiatrist Dr. Alvarez, previously saw therapist JAY Portillo at . PALS NURSE receives consult due to concern for patient's increased fatigue and depression. Patient has hx of Bipolar Disorder- current depressed mood, Anxiety Disorder and insomnia. PALS NURSE reviews EMR and identifies recent medication changes from patient's recent Psychiatry visit with Dr. Alvarez. Patient just started Caplyta rx and increased Gabapentin dosage. PALS NURSE meets with patient, patient presents as A/Ox4, fatigued, dysthymic, coherent, and communicative. Patient endorses that she has been having some side effects from the Caplyta rx such as diarrhea. Patient presents as overwhelmed with her depression and life circumstances. Patient states that her daughter lives near by but is often busy with her own life, patient states she does not talk about her struggles openly with her daughter. Patient's has Alzheimer Dementia, patient endorses that there is a caregiver that comes 3 times a week two hours a day who provides transportation for patient and patient receives meals on wheels. Patient states that she has three sons that live across the country and she talks on the phone with them but they are not aware of her current struggles. PALS NURSE encourages opening up with her children about her current situation so they can have the opportunity to be more supportive. PALS NURSE validates patient's emotions and utilizes strengths based approach to empower patient. Patient endorses that therapist JAY Portillo recently retired from clinic but patient needs to fill out intake paperwork to start seeing Pearl at her private practice clinic. Patient endorses that she is overwhelmed by this process. Patient endorses current passive SI with thoughts of taking pills but denies intent. Patient endorses that she ambulates with FWW at home and is fearful of falling, last fall a few weeks ago. PALS NURSE discusses caregiver supports, contacting patient's providers and the community life skills coach. PALS NURSE reviews EMR showing hx of Community Utilization Coordinator referral, patient endorses that she met with Evangelista Maxwell once. PALS NURSE contacts patient's PCP clinic regarding patient's presentation to the ED. PALS NURSE contacts Evangelista Maxwell Community Utilization Coordinator and leaves regarding patient and follow up at home for assistance with LTC planning and filling out intake paperwork for Pearl. PALS NURSE leaves VM with Dr. Alvarez's office regarding patient's presentation to ED. PALS NURSE calls Kandy THOMPSON and leaves VM, Pearl calls back and endorses similar concerns regarding patient and states that she can see patient without intake paperwork as she can help patient fill it out, Pearl states that patient can call her anytime. Pearl endorses concerns about patient's disordered eating and limited eating. Pearl discusses that the family has funds and patient would benefit from living at an [facility]. PALS NURSE to discuss this with Evangelista Maxwell. PALS NURSE calls back Evangelista Monmillie with updated request for exploring [facility] options and further discussion with daughter. Plan; Patient to d/c to home upon medical clearance, patient to f/u with outpatient providers and Community life skills coach for ongoing MH outpatient care and look into LTC options. JAY Duran
[2025-10-30 21:26] VITALS: BP 120/59; PULSE 80; RESP 14; O2SAT 93
== END 2025-10-30 21:27 | disposition home or self-care (01) ==
PROVIDERS: Family Medicine; Emergency Provider Emergency Medicine; PCP Family Medicine
DX: F31.4 Bipolar disorder, current episode depressed, severe, without psychotic features (principal); R42 Dizziness and giddiness; E86.0 Dehydration
CPT/HCPCS: 36415; 70450; 70496; 70498; 71045; 80053; 80305; 80320; 81015; 82550; 83690; 83735; 83880; 84484; 85025; 85610; 85730; 87635; 93005; 99284; Q9967